=== PATIENT | male | born 1960 | race African-American/Black ===

== ENCOUNTER 2019-12-30 17:51 | Outpatient (CLI) | payer OTHER, SELFPAY ==
[2019-12-30 18:23] LABS: Alanine Aminotransferase 23 U/L (4-50); Albumin Level 4.3 g/dL (3.5-5.1); Alkaline Phosphatase 68 U/L (38-126); Anion Gap 8 mmol/L (8-16); Aspartate Amino Transferase 34 U/L (17-59); Bilirubin,Total 0.8 mg/dL (0.2-1.3); Blood Urea Nitrogen 19 mg/dL (9-20); Calcium 9.2 mg/dL (8.4-10.2); Carbon Dioxide 26 mmol/L (22-30); Chloride 107 mmol/L (98-107); Cholesterol 209 mg/dL (0-200); Estimated Glomerular Filt Rate > 60; Glucose 97 mg/dL (75-110); HDL Direct 28 mg/dL; Potassium 3.8 mmol/L (3.4-5.0); Sodium 141 mmol/L (137-145); Triglycerides 267 mg/dL (<150)
[2019-12-30 18:35] LABS: LDL Cholesterol Direct 125 mg/dL
[2019-12-30 18:53] LABS: Prostate Specific Antigen 0.5 ng/mL (< OR = 4.0)
== END 2019-12-30 17:52 | disposition home or self-care (01) ==
LOC: ANHLAB 17:54
PROVIDERS: PCP Internal Medicine; Visit Provider Internal Medicine
DX: E78.5 Hyperlipidemia, unspecified (principal); I10 Essential (primary) hypertension; Z79.899 Other long term (current) drug therapy; Z12.5 Encounter for screening for malignant neoplasm of prostate
CPT/HCPCS: 36415; 80053; 80061; 84153; G0103

== ENCOUNTER 2020-02-25 14:34 | Inpatient (IN) | payer OTHER, SELFPAY ==
[2020-02-25] VITALS (20 sets, daily range): BP systolic 84–162; BP diastolic 56–102; PULSE 86–141; RESP 19–30; TEMP 35.8–37.2; O2SAT 97–100; BMI 33.7
--- NOTE | ~2020-02-25 | CT_ITS ---
EXAMINATION: CT brain wo con DATE: 02/27/2020 09:50 INDICATION: Altered mental status TECHNIQUE: Computed tomography (CT) of the head was performed without intravenous contrast. Sagittal and coronal reconstructions were performed. The mA was adjusted according to patient size. Iterative reconstruction technique was employed. The dose-length product was 681.00 mGy-cm. COMPARISON: head CT dated 10/01/2004 FINDINGS: No acute intracranial hemorrhage, acute infarction or abnormal extra axial fluid collection. There is mild scattered white matter hypoattenuation consistent with chronic small vessel ischemic disease. V entricles are normal and symmetric. No mass/mass effect. Mild mucosal thickening scattered throughout the paranasal sinuses. The orbits and mastoid air cells are normal. Intracranial calcified cerebral atherosclerosis is noted. IMPRESSION: 1. Mild scattered white matter hypoattenuation consistent with chronic small vessel ischemic disease. No acute intracranial process. Reviewed, dictated and finalized at location A. GER VOICE IMPRESSION: 1. Mild scattered white matter hypoattenuation consistent with chronic small ve ssel ischemic disease. No acute intracranial process.
--- NOTE | ~2020-02-25 | XR_ITS ---
EXAMINATION: XR abdomen NG/feed tube insert DATE: 02/25/2020 15:00 INDICATION: Orogastric tube placement. TECHNIQUE: A supine view of the abdomen was obtained. COMPARISON: None. FINDINGS: There are no dilated loops of bowel. The nasogastric tube tip is in the stomach. IMPRESSION: 1. Nasogastric tube tip in the stomach. Reviewed, dictated and finalized at location B. E OPERATIONS
--- NOTE | ~2020-02-25 | XR_ITS ---
EXAMINATION: XR chest 1V portable DATE: 02/26/2020 10:44 INDICATION: Respiratory failure. TECHNIQUE: A single frontal view of the chest was obtained. COMPARISON: Chest single view 02/25/2020, chest 2 views 01/07/2018 FINDINGS: There are airspace opacities in the perihilar regions and peripheral left lower lung zone. No pleural effusion or pneumothorax. The heart size is normal. The endotracheal tube tip is 4.7 cm ab ove the emmanuelle. The nasogastric tube tip is in the stomach. IMPRESSION: 1. Worsened airspace opacities in the perihilar regions and peripheral left lower lung zone, consiste nt with pulmonary edema versus pneumonia. Reviewed, dictated and finalized at location B. INE RIVETER IMPRESSION: 1. Worsened airspace opacities in the perihilar regions and peripheral left low er lung zone, consistent with pulmonary edema versus pneumonia.
--- NOTE | ~2020-02-25 | XR_ITS ---
EXAMINATION: XR chest 1V portable DATE: 02/29/2020 05:55 INDICATION: Respiratory failure. TECHNIQUE: A single frontal view of the chest was obtained. COMPARISON: Chest single view 02/28/2020 FINDINGS: There are airspace opacities in left lower lung zone. No pleural effusion or pneumothorax. The heart size is normal. The endotracheal tube tip is 5.4 cm above the emmanuelle. The nasogastric tube tip is beyond the inferior margin of the radiograph, but at least to the stomach. IMPRESSION: 1. Airspace opacities in left lower lung zone with interval improvement, consistent with atelectasis versus pneumonia. Reviewed, dictated and finalized at location A. GING CUT OFF SAW OPERATOR IMPRESSION: 1. Airspace opacities in left lower lung zone with interval improvement, consis tent with atelectasis versus pneumonia.
--- NOTE | ~2020-02-25 | XR_ITS ---
EXAMINATION: XR chest 1V portable DATE: 02/28/2020 05:59 INDICATION: Respiratory failure TECHNIQUE: frontal view of the chest was obtained. COMPARISON: Chest radiograph dated 02/27/2020 FINDINGS: Endotracheal tube tip 4.8 cm above the emmanuelle. Nasogastric tube extends below the left hemidiaphragm with distal tip collimated off the study. Bilateral perihilar groundglass opacities which are unchanged conifer increased leftward rotation of the patient. Increasing opacities at the lateral left lung base. No pneumothorax or definitive pleura l effusion. The cardiomediastinal silhouette is normal. Coronary artery stenting. IMPRESSION: 1. Bilateral perihilar and increasing left basilar opacities which could represent pneumonia, pulmona ry edema, atelectasis or some combination thereof. Reviewed, dictated and finalized at location A. WAY WORKER IMPRESSION: 1. Bilateral perihilar and increasing left basilar opacities which could repres ent pneumonia, pulmonary edema, atelectasis or some combination thereof.
--- NOTE | ~2020-02-25 | XR_ITS ---
EXAMINATION: XR chest ET placement DATE: 02/25/2020 14:59 INDICATION: Intubation. TECHNIQUE: A single frontal view of the chest was obtained on 2 radiographs. COMPARISON: Chest 2 views 01/07/2018 FINDINGS: There are airspace opacities in left lower lobe. No pleural effusion or pneumothorax. The h eart size is normal. The endotracheal tube tip is 4.2 cm above the emmanuelle. The nasogastric tube tip i s in the stomach. IMPRESSION: 1. Left lower lobe airspace opacities, consistent with atelectasis versus pneumonia. Reviewed, dictated and finalized at location B. DENT CARE ASSISTANT IMPRESSION: 1. Left lower lobe airspace opacities, consistent with atelectasis versus pneum onia.
--- NOTE | ~2020-02-25 | XR_ITS ---
EXAMINATION: XR chest 1V portable DATE: 03/01/2020 05:45 INDICATION: Respiratory failure. TECHNIQUE: A single frontal view of the chest was obtained. COMPARISON: Chest single view 02/29/2020 FINDINGS: There are airspace opacities at left lung base. There are airspace opacities in the perihil ar regions bilaterally. No pleural effusion or pneumothorax. The heart size is normal. The endotrache al tube is 4.2 cm above the emmanuelle. The nasogastric tube tip is in the stomach. A right upper extremi ty peripherally inserted central venous catheter (PICC) is seen with tip at the superior cavoatrial j unction. IMPRESSION: 1. Worsened airspace opacities in the perihilar regions and left lower lung zone, consistent with ate lectasis versus pneumonia. Reviewed, dictated and finalized at location A. FRAMER IMPRESSION: 1. Worsened airspace opacities in the perihilar regions and left lower lung zon e, consistent with atelectasis versus pneumonia.
--- NOTE | ~2020-02-25 | XR_ITS ---
EXAMINATION: XR chest 1V portable DATE: 02/27/2020 06:11 INDICATION: Respiratory failure TECHNIQUE: frontal view of the chest was obtained. COMPARISON: Chest radiograph dated 02/26/20 FINDINGS: Endotracheal tube tip 4.0 cm above the emmanuelle. Nasogastric tube extends below the left hemidiaphragm with distal tip collimated off the study. Bilateral perihilar predominant airspace opacities with some increase in the left lower lung zone. Un changed mild discoid atelectasis at the lateral left lung base. No pleural effusion or pneumothorax. The cardiomediastinal silhouette is within normal limits for AP technique. IMPRESSION: 1. Bilateral perihilar predominant opacities with worsening the left lower lung zone consistent with pulmonary edema and/or pneumonia. Reviewed, dictated and finalized at location A. ERCIAL FISHING VESSEL OPERATOR
--- NOTE | ~2020-02-25 | XR_ITS ---
EXAMINATION: XR chest 1V portable INDICATION: Endotracheal tube assessment TECHNIQUE: Portable AP chest at 1743 hours COMPARISON: 1456 hours FINDINGS: The endotracheal tube ends approximately 2.6 cm above the emmanuelle. The nasogastric tube is i n the stomach. The lung volumes are low. The heart size is normal for technique. Retrocardiac airspac e opacities are unchanged.. There is no pleural effusion or pneumothorax. IMPRESSION: 1. Endotracheal tube approximately 2.6 cm above the emmanuelle. 2. Stable retrocardiac airspace opacity, consistent with atelectasis versus pneumonia. Reviewed, dictated and finalized at location A. MENT LETTERER IMPRESSION: 1. Endotracheal tube approximately 2.6 cm above the emmanuelle. 2. Stable retrocardiac airspace opacity, consistent with atelectasis versus pne umonia.
--- NOTE | ~2020-02-25 | XR_ITS ---
EXAMINATION: XR abdomen obstructive series DATE: 03/01/2020 10:45 INDICATION: Vomiting TECHNIQUE: Frontal supine and upright views of the abdomen were obtained. COMPARISON: 02/25/2020 FINDINGS: Nasogastric tube tip in proximal side port in the body of the stomach. Moderate amount of gas scatter ed throughout the colon. No dilated loops of gas-filled bowel to suggest obstruction.Airspace opaciti es in the left lower lung zone which could represent atelectasis and/or pneumonia. Heart size is norm al. IMPRESSION: 1. Nasogastric tube in stomach. 2. No free intraperitoneal gas or dilated gas-filled loops of bowel to suggest obstruction. 3. Opacities in the left lower lung zone which could represent atelectasis and/or pneumonia. Reviewed, dictated and finalized at location B. OOD LAYUP LINE CORE FEEDER IMPRESSION: 1. Nasogastric tube in stomach. 2. No free intraperitoneal gas or dilated gas-filled loops of bowel to suggest obstruction. 3. Opacities in the left lower lung zone which could represent atelectasis and/ or pneumonia.
--- NOTE | 2020-02-25 14:33 | PC.NURSE ---
Addendum entered by Fara Kim RN 02/25/20 15:44: 1500-324 asa crushed and given via nasogastric tube. ng and george placed in ed at approx 1450 Addendum entered by Fara Kim RN 02/25/20 15:37: 1436-no versed given due to possible reaction to versed given en route by ems. tongue swelling noted on arrival to ed Original Note: 1433-arrived via ems for vfib cariac arrest at home. pt was shocked x 2 in field with rhythm of sinus tach after 2nd shock. pt arrived being bagged via 7 ett (25 cm at teeth, tongue swollen). 1436-versed 2 mg iv push as pt is bucking the tube/restless. amiodarone bolus 150 mg iv push marissa guallpa 1440-propofol 20 mg iv push marissa guallpa 1442-amiodarone drip started at 33.3 ml/hr marissa guallpa 1446-propofol drip via pump 20 mcg/kg vorgerman guallpa [id number] units iv bolus vorgerman guallpa 1503-transported to wharf labourer with cath collection team lead, ed rn and resp therapy. bagged via ett by resp therapy. belongings of underwear, shorts and upper dentures sent with pt
--- NOTE | 2020-02-25 14:51 | PC.NURSE ---
Addendum entered by Fara Kim RN 02/25/20 15:43: afib with rvr, acute mi per tele and 12 lead ekg Original Note: sinus tach with st elevation per tele
--- NOTE | 2020-02-25 14:51 | ED.GENADULT ---
HPI - General Adult General Chief complaint: Cardiac Arrest/CPR Stated complaint: CARDIAC ARREST Time Seen by Provider: 02/25/20 14:47 Source: family and EMS Mode of arrival: EMS Limitations: clinical condition History of Present Illness HPI narrative: 59 years old -Mauritanian male brought to the emergency room by ambulance, intubated, status post cardiac arrest. According to patient's who is telling me that patient had chest pain at 2:00 in the morning and did ask him to take Tums, no improvement, when she came back at home this morning advised him to go to the emergency room he declined. Later the try to get some sleep because she was working last night and the patient was laying down next to her, the heard that the patient was a choking, eyes rolled backward, started CPR, called Jose E Alexander on arrival, received 2 shocks, followed by PEA then sinus tachycardia. Patient was intubated in the field, EKG on arrival showed significant ST elevation in the anterolateral leads. STEMI was called Related Data Home Medications Medication Instructions Recorded Confirmed azathioprine 50 mg tablet 50 mg PO DAILY 01/29/19 12/29/19 fluticasone propionate 50 2 spray NASAL DAILY 01/29/19 12/29/19 mcg/actuation nasal spray,suspension Allergies Allergy/AdvReac Type Severity Reaction Status Date / Time No Known Allergies Allergy Verified 12/29/19 07:13 Review of Systems Review of Systems: ROS unobtainable: Yes unobtainable due to endotracheal tube and unobtainable due to medical condition PMFSH Past Medical History Medical History (Updated 02/25/20 @ 15:12 by Nikita Cruz MD) Autoimmune hepatitis Essential (primary) hypertension Hyperlipidemia Family History Family History Sibling Family history of lupus erythematosus Patient's sister is in good health Patient's brother is in good health Father Family history of malignant neoplasm Patient's father is Mother Family history of malignant neoplasm Patient's mother is Social History Social History Smoking status: Current every day smoker Exam Narrative: Exam Narrative: General appearance: Well-developed, well-nourished, intubated, unresponsive to painful stimulation Skin: Normal color Head: Normocephalic, nontraumatic Eyes: Clear conjunctiva Chest and respiratory: Airway patent, no respiratory distress, no accessory muscle use Heart: Regular rate/rhythm Abdomen: Soft, nontender, no organomegaly, quiet bowel sounds Vascular: Normal peripheral pulses, normal capillary refill. Course Course Emergency Course: Stable Consultations Consultation #1: Dr. Alvares Date: 02/25/20 Time: 15:05 Vital Signs Vital signs: Vital Signs Pulse Rate 121 H 02/25/20 14:33 Respiratory Rate 28 H 02/25/20 14:33 Blood Pressure 120/102 H 02/25/20 14:33 Pulse Rate 130 H 02/25/20 14:52 Respiratory Rate 19 02/25/20 14:52 Blood Pressure 162/99 H 02/25/20 14:52 Pulse Oximetry 99 02/25/20 14:52 Medical Decision Making MDM Narrative Medical decision making narrative: STEMI, status post cardiac arrest,v fib Patient arrived to the ED intubated, Amiodarone bolus and drip, heparin bolus, NG tube, aspirin, ordered. Patient going to cardiac cath. I saw the EKG brought to the ED by ambulance at 2:40 PM Vital Signs Vital Signs: Vital Signs Pulse Rate 121 H 02/25/20 14:33 Respiratory Rate 28 H 02/25/20 14:33 Blood Pressure 120/102 H 02/25/20 14:33 Pulse Rate 130 H 02/25/20 14:52 Respiratory Rate 19 02/25/20 14:52 Blood Pressure 162/99 H 02/25/20 14:52 Pulse Oximetry 99 02/25/20 14:52 Lab Data Result
[2020-02-25 14:56] LABS: Basophils Percent Auto 0.3 % (0.2-1.2); Eosinophils Percent Auto 0.3 % (0-4.4); Immature Granulocyte Absolute 0.08 K/mm3 (0.00-0.031); Lymphocytes Absolute Auto 3.24 K/mm3 (0.9-3.2); Lymphocytes Percent Auto 41.5 % (18.3-44.2); Mean Corpuscular HGB Conc 34.9 g/dl (32-36); Mean Corpuscular Hemoglobin 33.2 pg (26-34); Mean Corpuscular Volume 95.1 fl (80-100); Mean Platelet Volume 11.8 fl (7.4-10.4); Monocytes Absolute Auto 0.8 K/mm3 (0.1-0.6); Monocytes Percent Auto 10.5 % (2.6-8.5); Neutrophils Absolute Auto 3.6 K/mm3 (1.3-6.7); Neutrophils Percent Auto 46.4 % (45.5-73.1); Platelet Count Result 159 k/mm3 (150-375); Red Blood Count 4.52 M/mm3 (4.6-6.20); Red Cell Distribution Width 12.9 % (11.5-14.5); White Blood Count 7.8 K/mm3 (4.5-10.0)
--- NOTE | 2020-02-25 15:10 | PM.IMHP ---
H&P: HPI History of Present Illness Date/Time: 02/25/20 15:10 Chief complaint: CARDIAC ARREST Narrative: Cristofer Mckeon is a 59 year old male Who was admitted for a VFib arrest and acute anterior PR. The patient has a history of hypertension and hyperlipidemia but no prior history of heart disease. History was obtained from the , EMS personnel and Dr. Cruz, the ER physician, as the patient is unconscious. Mr. Mckeon had some chest discomfort around 2:00 a.m. this afternoon he he had his for lying down together and she noticed he was gurgling and unresponsive. She started CPR and called the ambulance. They arrived within 3-5 minutes. He was in VFib and they started CPR and he had 2 shocks. Sinus rhythm was restored. He is intubated in the field and brought to the ER. He has been given some amiodarone IV, and propofol. He was getting aspirin through his NG tube. He has had no further arrhythmias as blood pressures in the 160s, tachycardic with heart rate in the 120s when I saw the patient in the emergency room. His EKG showed extensive ST elevation in V1 through V3 consistent with an extensive anterior myocardial infarction. Review of Systems Review of Systems: Narrative: please see H&P for ROS ROS unobtainable: Yes unobtainable due to endotracheal tube, unobtainable due to medical condition and unobtainable due to mental status PMFSH Past Medical History Medical History (Updated 02/26/20 @ 00:23 by Josette Olea PA-C) Autoimmune hepatitis Dyslipidemia Essential hypertension Gastroesophageal reflux disease Osteoarthritis Surgical History Surgical History (Updated 02/25/20 @ 15:14 by Patricia Birmingham MD) Status post bilateral knee replacements Family History Family History Sibling Family history of lupus erythematosus Patient's sister is in good health Patient's brother is in good health Father Family history of malignant neoplasm Patient's father is Mother Family history of malignant neoplasm Patient's mother is Social History Social History (Updated 02/26/20 @ 00:19 by Josette Olea PA-C) Social History: The patient is and lives with his in [place]. He has 4 children and 4 grandchildren. He works in construction. He is a former smoker and quit in 1998. No alcohol or illicit substance use. His Adrienne, a nurse, is his healthcare power of insurance attorney and she wishes him to be a full code. Smoking packs per day: 0.25 Smoking cigarettes per day: 5.0 Years smoked: 17 Smoking pack-years: 4.25 Smoking status: Former smoker Smoking end date: 03/18/98 Alcohol intake: former Substance use: never Gender identity (if verbalized by the patient): Male Spiritual care concerns: No Meds Home Medications and Allergies Home Medications Medication Instructions Recorded Confirmed Type azathioprine 50 mg tablet 50 mg PO DAILY 01/29/19 12/29/19 History fluticasone propionate 50 2 spray NASAL DAILY 01/29/19 12/29/19 History mcg/actuation nasal spray,suspension triamcinolone acetonide 0.1 % 1 applic TOPICAL BID #80 gm 04/08/19 12/29/19 Rx topical cream pantoprazole 40 mg tablet,delayed 40 mg PO QAM #30 tablet 11/24/19 12/29/19 Rx release hydrocodone 10 mg-acetaminophen 1 tablet PO Q8H PRN #60 tablet 12/29/19 12/29/19 Rx 325 mg tablet sildenafil 100 mg tablet See Rx Instructions PO DAILY PRN 12/29/19 12/29/19 Rx #15 tablet amlodipine 10 mg tablet 10 mg PO DAILY #90 tablet 01/04/20 02/26/20 Rx omega-3 fatty acids 1,000 mg 1,000 mg PO DAILY #90 cap 01/04/20 Rx capsule pravastatin 40 mg tablet 20 mg PO DAILY #90 tablet 01/04/20 Rx Allergies Allergy/AdvReac Type Severity Reaction Status Date / Time No Known Allergies Allergy Verified 02/26/20 08:02 Vital Signs Vital Signs - 24 hr 02/25/20 14:33 02/25/20 14:51 02/15
[2020-02-25 15:17] LABS: INR 1.1; Prothrombin Time 14.4 Seconds (11.1-14.7)
[2020-02-25 15:18] LABS: Partial Thromboplastin Time 26.3 SECONDS (22.3-36.8)
--- NOTE | 2020-02-25 16:30 | ECG_ITS ---
Measurements Intervals [place] Rate: 140 P: DE: 0 QRS: -12 QRSD: 94 T: 38 QT: 276 QTc: 422 Interpretive Statements ATRIAL FIBRILLATION WITH RAPID VENTRICULAR RESPONSE ANTEROLATERAL ST ELEVATION MYOCARDIAL INJURY- ACUTE SUBTLE INFERIOR ST ELEVATION- CONSIDER ACUTE INJURY ABNORMAL ECG Electronically Signed On 02-25-2020 19:55:57 RAMPMAN by James Holt D.O.
[2020-02-25] MEDS: AMIODARONE 360 MG/D5W 200 ML 360 MG/200 ML BAG 33.33 MG IV CONT (16:50)
--- NOTE | 2020-02-25 16:52 | WPDCARDPROC ---
Cardiac Cath Procedure Note Date of procedure:: 02/25/20 Performing physician:: Chris Alvares MD Indication:: acute anterior wall myocardial infarction [id number] VFib Brief clinical history:: this is a 59-year-old patient without any prior known history of coronary disease. He started chest pain at home about 12 hours prior to presentation. He had E 911 called to his home when he collapsed and was found in ventricular fibrillation. Following resuscitation his electrocardiogram shows atrial fibrillation as well as acute anterior wall injury. Procedure Procedure performed:: Emergency coronary angiography left ventriculography attempted PCI of LAD Sedation/Medication given:: patient is on a propofol infusion from the emergency room which was continue following intubation Access site:: right femoral artery Estimated blood loss:: 50 cc Procedure note:: patient was brought to the cardiac catheterization lab in the emergency setting described above. He is intubated and sedated with propofol. He was placed on the table where the femoral triangles were prepared and draped in the usual fashion. Anesthesia was given with 10 cc lidocaine infiltrated locally. Following this the modified Seldinger technique was used to puncture the right femoral artery and a 6 Slovenian vascular sheath was placed. After this I used a 6 Slovenian JR4 catheter to engage inject the right coronary artery. Then a 6 [place]ian FL4 catheter to engage inject the left coronary artery. Following this plans were made to perform PCI on the occluded LAD. The patient received intravenous Angiomax for interventional [place] anticoagulation. He also received 180 mg Brilinta down his NG tube. He had already received aspirin in the emergency department. Patient also received intracoronary and intravenous Integrilin during the intervention. Following intervention which was unsuccessful as detailed below the sheath was sutured into position and the patient was taken to the ICU in critical condition. Findings:: Hemodynamics: Central aortic pressure is 1 0 4 over over 2 end-diastolic pressure 16. There is no significant transvalvular gradient across the aortic valve. Left ventricle: The LV is moderately enlarged the anterolateral wall is akinetic the global ejection fraction is visually estimated to be 25%. Left main coronary artery is nicely patent left anterior descending is a large vessel extending down to the midportion of the anterior wall at which point it is 100% occluded. Proximal to the 100% occlusion there was an 80% complex stenosis in the proximal LAD. There is no antegrade filling into the LAD. The left circumflex artery is large in caliber giving rise to the marginal branches the circumflex has minimal luminal irregularities but no flow-limiting disease is identified. The right coronary artery is large in caliber and dominant to the posterior circulation the right coronary artery also has minimal luminal irregularities but no angiographically significant disease. intervention: The LAD was wired using a 0.014 airplane pilot chief 150 wire. The wire angiographically could be seen in the true lumen of the LAD and the distal apical portion of the vessel. The lesion site of total occlusion was pre-dilated using a 3.0 x 15 mm emerge PTCA balloon. After this inflation was conducted the LAD was 100% occluded at the more proximal 80% stenosis described above. A series of long overlapping inflations were then made using 3 point 5 mm x 30 mm emerge PTCA balloon from the distal portion of the LAD back to the site of the proximal occlusion. This resulted in no angiographic improvement. I then made 2 passes in the LAD with the export thrombectomy catheter removed a good deal of thrombus from the artery but still had no angiographic christian of flow. I then made a pass in the LAD using the Angiojet rheolytic thrombectomy device again resulting in very minimal dean
--- NOTE | 2020-02-25 17:45 | WPDCN ---
Assessment and Plan Assessment and plan (1) ST elevation myocardial infarction (STEMI) of anterior wall: Code(s): I21.09 - ST elevation (STEMI) myocardial infarction involving other coronary artery of anterior wall Status: Acute (2) Cardiac arrest with ventricular fibrillation: Code(s): I46.9 - Cardiac arrest, cause unspecified; I49.01 - Ventricular fibrillation Status: Acute (3) Hypokalemia: Code(s): E87.6 - Hypokalemia Status: Acute (4) Autoimmune hepatitis: Code(s): K75.4 - Autoimmune hepatitis Status: Acute (5) Essential hypertension: Code(s): I10 - Essential (primary) hypertension Status: Inactive (6) Dyslipidemia: Code(s): E78.5 - Hyperlipidemia, unspecified Status: Inactive (7) Gastroesophageal reflux disease: Code(s): K21.9 - Gastro-esophageal reflux disease without esophagitis Status: Inactive (8) Atrial fibrillation, new onset: Code(s): I48.91 - Unspecified atrial fibrillation Status: Acute Additional Plan Unfortunately the patient presented late and flow was unable to be restored in a 100% occluded LAD despite attempted complex PCI. He is currently on an amiodarone drip due to cardiac dysrhythmias including atrial fibrillation and ventricular fibrillation. Hypothermia protocol has been initiated per the senior formulation scientist. His potassium will be replaced and monitored. LFTs are elevated, possibly related to autoimmune hepatitis or shock liver. We will continue to monitor these closely. wishes for him to remain a full code at this time. Thank you for allowing us to participate in this patient's care. Please do not hesitate to contact us with any questions. We will follow with you. Supervising physician for this medical consultation is Dr. Brian Dai. HPI Data of Consult Date/Time: 02/25/20 17:45 Requesting Physician: Chris Alvares MD Primary Care Provider: Dudley Kapoor DO Consult Narrative Narrative: Cristofer Mckeon is a 59-year-old male with autoimmune hepatitis, hypertension, and hyperlipidemia who presented to the emergency department earlier today via EMS from home after he was found unresponsive by his . He apparently had been complaining of chest discomfort at around 02:00 for which he took Tums without much benefit. Not long prior to arrival the patient's heard him making strange noises and he was found to be unresponsive. He was apparently in ventricular fibrillation on EMS arrival with an EKG showing ST elevation in the anterior leads. ROSC was achieved and he was taken to the cardiac catheterization lab where he was found to have 100% occlusion of the LAD with no orthodoxy of flow despite attempted complex PCI. The LV was moderately enlarged with an akinetic anterolateral wall and a global ejection fraction visually estimated at 25%. He was then taken to the intensive care unit in critical condition. Not long after arrival to the ICU he once again went into ventricular fibrillation status post defibrillation, now on amiodarone drip. Hypothermia protocol is being initiated. I have been asked to see the patient in consultation for management of his medical conditions. Aside from autoimmune hepatitis, he is relatively healthy and believes that his hypertension and hyperlipidemia are well controlled on medication. For the last week or so he apparently has been complaining of some chest discomfort, which he attributed to muscle strain as he was doing more heavy lifting at work than usual. He has no known history of coronary artery disease prior to today. Review of Systems Review of Systems: Narrative: Unable to be obtained given his current clinical condition. [facility] Past Medical History Medical History (Updated 02/26/20 @ 00:23 by Josette Olea PA-C) Autoimmune hepatitis Dyslipidemia Essential hypertension Gastroesophageal reflux disease Osteoarthritis Surgical Histo
[2020-02-25 17:54] LABS: Alveolar/Arterial O2 Gradient 167.5 mmHg; Base Excess ABG -3.9 mEq/l (+/-2.0); Carboxyhemoglobin 0.3 % THb (0-2.0); Device AMBU BAG; Fractional Inspired Oxygen 100 %; HCO3 ABG 20.4 mEq/l (22.0-26.0); Methemoglobin ABG 0.3 %THb (0-1.5); Modified Allen's Test Pass; Oxygen Content ABG 22.7 %vol (16.0-22.0); Oxygen Saturation ABG 99.9 % (95.0-100.0); Oxyhemoglobin 98.6 % THb (90.0-100.0); PO2 ABG 510.5 mmHg (80.0-100.0); PO2 FiO2 Ratio Arterial Blood 5.11 %; Reduced Hemoglobin 0.8 %THb (0-5.0); Site Drawn RIGHT RADIAL; Total Hemoglobin 15.4 g/dL (12.0-18.0); pH ABG 7.383 (7.350-7.450)
[2020-02-25] MEDS: PROPOFOL IV EMULSION 100 ML 30.96 MG IV CONT (18:00)
[2020-02-25 18:10] LABS: Basophils Percent Auto 0.2 % (0.2-1.2); Eosinophils Percent Auto 0.1 % (0-4.4); Hematocrit 41.3 % (42.0-52.0); Hemoglobin 14.7 g/dL (14.0-18.0); Immature Granulocyte Absolute 0.08 K/mm3 (0.00-0.031); Immature Granulocyte Percent A 0.6 % (0-0.5); Lymphocytes Absolute Auto 1.53 K/mm3 (0.9-3.2); Lymphocytes Percent Auto 11.7 % (18.3-44.2); Mean Corpuscular HGB Conc 35.6 g/dl (32-36); Mean Corpuscular Hemoglobin 33.6 pg (26-34); Mean Corpuscular Volume 94.3 fl (80-100); Mean Platelet Volume 11.2 fl (7.4-10.4); Monocytes Absolute Auto 1.3 K/mm3 (0.1-0.6); Monocytes Percent Auto 9.7 % (2.6-8.5); Neutrophils Absolute Auto 10.2 K/mm3 (1.3-6.7); Neutrophils Percent Auto 77.7 % (45.5-73.1); Platelet Count Result 152 k/mm3 (150-375); Red Blood Count 4.38 M/mm3 (4.6-6.20); White Blood Count 13.1 K/mm3 (4.5-10.0)
[2020-02-25 18:20] LABS: INR 1.7
[2020-02-25 18:23] LABS: Lactic Acid Reflex 3.3 mmol/L (0.7-2.1)
[2020-02-25 18:23] LABS: Alanine Aminotransferase 55 U/L (4-50); Albumin Level 3.8 g/dL (3.5-5.1); Alkaline Phosphatase 69 U/L (38-126); Anion Gap 11 mmol/L (8-16); Aspartate Amino Transferase 225 U/L (17-59); Bilirubin,Total 0.8 mg/dL (0.2-1.3); Blood Urea Nitrogen 13 mg/dL (9-20); Calcium 8.6 mg/dL (8.4-10.2); Carbon Dioxide 20 mmol/L (22-30); Chloride 104 mmol/L (98-107); Estimated Glomerular Filt Rate > 60; Glucose 217 mg/dL (75-110); Phosphorus 3.2 mg/dL (2.5-4.5); Sodium 135 mmol/L (137-145)
--- NOTE | 2020-02-25 19:05 | ADMGEN ---
This patient, Cristofer Mckeon, was admitted to Intensive Care Unit-2. Patient/family oriented to hospital policies and general routines including ID bracelet, bed and alarms, visiting hours, pain management, procedures, bathroom and other care routines, personal items, smoking policy, room service/diet, and visiting hours. Information on how to activate the Rapid Response Team has been discussed. Patient/Family are encouraged to report perceived risks to care and to ask questions if they do not understand what they are told or what they should do.
--- NOTE | 2020-02-25 19:45 | P.PCNBED_ITS ---
Procedures Central Line Placement Left Femoral: Central Line Date: 02/25/20 Central Line Time: 19:45 Discussed w/ the patient/family/POA,the placement of a central venous catheter, including its clinical necessity/indication & associated potential risks, benifits and alternatives.: Yes The patient/family/POA understand(s) and acknowledge(s) the need to proceed with central venous catheter insertion as an important element of the patient's clinical management.: Yes Consent: Obtained consent per , Adrienne Mckeon. Time Out Performed: Yes Patient Position: supine Patient placed on monitor/pulse ox: Yes Provider Prep: mask, sterile gown, sterile gloves, Max. sterile barrier precautions, cap and hand hygiene with conventional soap/water or alcohol based hand rub Central line prep: 2% Chlorhexidine scrub Local anesthesia used: lidocaine 1% Amount of anesthesia used (ml): 5 Sterile US Technique with sterile gel/sterile probe covers: Yes Central line lumen inserted: triple [place]: 7 Length (cm): 20 Post Procedure: sutured in place, good blood return, all ports aspirated, flushed, capped, transparent dressing, securement product and aseptic technique maintained throughout procedure Post procedure x-ray: other (n/a with femoral placement.) Patient tolerated procedure: well Complications: none
[2020-02-25 20:02] LABS: Alveolar/Arterial O2 Gradient 552.9 mmHg; Base Excess ABG -2.5 mEq/l (+/-2.0); Carboxyhemoglobin 0.3 % THb (0-2.0); Fractional Inspired Oxygen 100 %; HCO3 ABG 21.8 mEq/l (22.0-26.0); Methemoglobin ABG 0.3 %THb (0-1.5); Oxygen Content ABG 21.4 %vol (16.0-22.0); Oxygen Saturation ABG 98.5 % (95.0-100.0); Oxyhemoglobin 97.3 % THb (90.0-100.0); PCO2 ABG 36.3 mmHg (35.0-45.0); PO2 ABG 123.8 mmHg (80.0-100.0); PO2 FiO2 Ratio Arterial Blood 1.24 %; Reduced Hemoglobin 2.1 %THb (0-5.0); Total Hemoglobin 15.5 g/dL (12.0-18.0); pH ABG 7.396 (7.350-7.450)
[2020-02-25 20:04] LABS: Device VENTILATOR; Site Drawn RIGHT RADIAL
[2020-02-25 20:05] LABS: Arterial Blood Gas PEEP 5 cmH2O; Arterial Blood Gas Tidal Volume 450 ml; Arterial Blood Gas Vent Mode CMV; Arterial Blood Gas Ventilator rate 24 /MIN
[2020-02-25 21:07] LABS: Reflex Lactic Acid Yes or No Add Lactic
[2020-02-25] MEDS: PROPOFOL IV EMULSION 100 ML 38.7 MG IV CONT (21:40)
[2020-02-25] MEDS: LORazepam INJ (*CRX) 2 MG/ML VIAL (21:56)
[2020-02-25] MEDS: FENTANYL 2,500MCG/NS250ML(*CRX 2,500 MCG/250 ML BAG IV CONT (22:00)
[2020-02-25] MEDS: ROCURONIUM BROMIDE 50 MG/5 ML VIAL IV PUSH (22:49)
[2020-02-25] MEDS: AMIODARONE 360 MG/D5W 200 ML 360 MG/200 ML BAG 16.67 MG IV CONT (22:50)
[2020-02-25 23:54] LABS: Lactic Acid 1.3 mmol/L (0.7-2.1)
[2020-02-26] VITALS (49 sets, daily range): BP systolic 70–268; BP diastolic 56–255; PULSE 57–98; RESP 17–28; TEMP 32.6–36.4; O2SAT 91–100; BMI 33.7
[2020-02-26 00:01] LABS: Amphetamine Screen Urine Negative (Negative); Barbiturate Screen Urine Negative (Negative); Benzodiazepines Screen Urine Positive (Negative); Cannabinoid Screen Urine Negative (Negative); Cocaine Screen Urine Negative (Negative); Methadone Screen Urine Negative (Negative); Opiate Screen Urine Negative (Negative); Phencyclidine Screen Urine Negative (Negative)
[2020-02-26 00:04] LABS: Glucose Point of Care 175 (65-105)
[2020-02-26 00:17] LABS: Base Excess ABG -5.8 mEq/l (+/-2.0); Carboxyhemoglobin 0.2 % THb (0-2.0); Fractional Inspired Oxygen 80 %; HCO3 ABG 19.3 mEq/l (22.0-26.0); Methemoglobin ABG 0.3 %THb (0-1.5); Oxygen Content ABG 22.2 %vol (16.0-22.0); Oxygen Saturation ABG 96.1 % (95.0-100.0); Oxyhemoglobin 95.2 % THb (90.0-100.0); PCO2 ABG 37.1 mmHg (35.0-45.0); PO2 ABG 86.5 mmHg (80.0-100.0); PO2 FiO2 Ratio Arterial Blood 1.08 %; Reduced Hemoglobin 4.3 %THb (0-5.0); Total Hemoglobin 16.6 g/dL (12.0-18.0); pH ABG 7.335 (7.350-7.450)
[2020-02-26 00:19] LABS: Arterial Blood Gas Ventilator rate 20 /MIN; Device VENTILATOR; Modified Allen's Test Pass; Site Drawn LEFT RADIAL
[2020-02-26 00:20] LABS: Arterial Blood Gas PEEP 5 cmH2O; Arterial Blood Gas Tidal Volume 450 ml; Arterial Blood Gas Vent Mode CMV
[2020-02-26 00:29] LABS: Hematocrit 44.2 % (42.0-52.0); Hemoglobin 15.7 g/dL (14.0-18.0); Mean Corpuscular HGB Conc 35.5 g/dl (32-36); Mean Corpuscular Hemoglobin 33.4 pg (26-34); Mean Platelet Volume 11.3 fl (7.4-10.4); Platelet Count Result 143 k/mm3 (150-375); Red Cell Distribution Width 13.1 % (11.5-14.5); White Blood Count 9.4 K/mm3 (4.5-10.0)
[2020-02-26 00:46] LABS: INR 1.1; Lactic Acid Reflex 1.3 mmol/L (0.7-2.1); Prothrombin Time 14.4 Seconds (11.1-14.7)
[2020-02-26 00:47] LABS: Partial Thromboplastin Time 30.7 SECONDS (22.3-36.8)
[2020-02-26] MEDS: METOPROLOL TARTRATE 25 MG TABLET FEED TUBE ×4 (00:48→18:22)
[2020-02-26] MEDS: PROPOFOL IV EMULSION 100 ML 38.7 MG IV CONT ×2 (00:51→03:30)
[2020-02-26 01:36] LABS: Creatine Kinase 5901 U/L (55-170)
[2020-02-26 02:04] LABS: Hemoglobin A1C 4.5 % (<5.7)
[2020-02-26 04:25] LABS: Alveolar/Arterial O2 Gradient 432.7 mmHg; Base Excess ABG -5.1 mEq/l (+/-2.0); Carboxyhemoglobin 0.3 % THb (0-2.0); Fractional Inspired Oxygen 80 %; Methemoglobin ABG 0.3 %THb (0-1.5); Oxygen Content ABG 22.7 %vol (16.0-22.0); Oxygen Saturation ABG 97.1 % (95.0-100.0); Oxyhemoglobin 96.5 % THb (90.0-100.0); PCO2 ABG 38.1 mmHg (35.0-45.0); PO2 ABG 97.7 mmHg (80.0-100.0); PO2 FiO2 Ratio Arterial Blood 1.22 %; Reduced Hemoglobin 2.9 %THb (0-5.0); Total Hemoglobin 16.7 g/dL (12.0-18.0); pH ABG 7.339 (7.350-7.450)
[2020-02-26 04:26] LABS: Arterial Blood Gas Ventilator rate 20 /MIN; Device VENTILATOR; Modified Allen's Test Pass; Site Drawn RIGHT RADIAL
[2020-02-26 04:27] LABS: Arterial Blood Gas PEEP 5 cmH2O; Arterial Blood Gas Tidal Volume 450 ml; Arterial Blood Gas Vent Mode CMV
[2020-02-26] MEDS: LORazepam INJ (*CRX) 2 MG/ML VIAL IV PUSH (04:52)
[2020-02-26 05:34] LABS: Basophils Percent Auto 0.1 % (0.2-1.2); Eosinophils Percent Auto 0.1 % (0-4.4); Hematocrit 44.2 % (42.0-52.0); Hemoglobin 15.4 g/dL (14.0-18.0); Immature Granulocyte Absolute 0.03 K/mm3 (0.00-0.031); Immature Granulocyte Percent A 0.3 % (0-0.5); Immature Platelet Fraction Pct 7.2 % (0.9-11.2); Lymphocytes Absolute Auto 0.83 K/mm3 (0.9-3.2); Lymphocytes Percent Auto 9.7 % (18.3-44.2); Mean Corpuscular HGB Conc 34.8 g/dl (32-36); Mean Corpuscular Hemoglobin 32.9 pg (26-34); Mean Corpuscular Volume 94.4 fl (80-100); Mean Platelet Volume 11.7 fl (7.4-10.4); Monocytes Absolute Auto 0.9 K/mm3 (0.1-0.6); Monocytes Percent Auto 10.6 % (2.6-8.5); Neutrophils Absolute Auto 6.8 K/mm3 (1.3-6.7); Neutrophils Percent Auto 79.2 % (45.5-73.1); Platelet Count Result 134 k/mm3 (150-375); Red Blood Count 4.68 M/mm3 (4.6-6.20); White Blood Count 8.6 K/mm3 (4.5-10.0)
[2020-02-26 05:52] LABS: Alanine Aminotransferase 102 U/L (4-50); Albumin Level 4.1 g/dL (3.5-5.1); Alkaline Phosphatase 67 U/L (38-126); Anion Gap 8 mmol/L (8-16); Aspartate Amino Transferase 692 U/L (17-59); Bilirubin,Total 0.8 mg/dL (0.2-1.3); Blood Urea Nitrogen 14 mg/dL (9-20); Calcium 8.9 mg/dL (8.4-10.2); Carbon Dioxide 27 mmol/L (22-30); Chloride 104 mmol/L (98-107); Estimated CRCL calculation 98 ml/min; Estimated Glomerular Filt Rate > 60; Glucose 134 mg/dL (75-110); Magnesium 2.1 mg/dL (1.6-2.3); Potassium 3.9 mmol/L (3.4-5.0); Sodium 139 mmol/L (137-145)
[2020-02-26] MEDS: MIDAZOLAM HCL (*CRX) 2 MG/2 ML VIAL 4 MG (07:21)
[2020-02-26] MEDS: METOPROLOL TARTRATE INJ 5 MG/5 ML VIAL (07:21)
[2020-02-26] MEDS: SODIUM CHLORIDE 0.9% IV 1,000 ML 100 ML IV CONT (08:25)
[2020-02-26] MEDS: AMIODARONE 360 MG/D5W 200 ML 360 MG/200 ML BAG 16.67 MG IV CONT ×2 (08:44→21:00)
[2020-02-26] MEDS: ENOXAPARIN 40 MG/0.4 ML SYRINGE SUB-Q (08:46)
[2020-02-26] MEDS: ASPIRIN 81 MG CHEWABLE TABLET PO (08:46)
[2020-02-26] MEDS: levETIRAcetam ORAL SOL 500 MG/5 ML UDC FEED TUBE ×2 (08:46→20:58)
[2020-02-26] MEDS: PANTOPRAZOLE SODIUM IV 40 MG VIAL IV PUSH (08:47)
[2020-02-26] MEDS: ROSUVASTATIN 10 MG TABLET 20 MG FEED TUBE (08:47)
[2020-02-26] MEDS: PERFLUTREN LIPID MICROSPHERES 1.5 ML VIAL DILUTED TO 10 ML TOTAL VOLUME (10:30)
--- NOTE | 2020-02-26 10:59 | PM.PNCARD ---
Progress Note: A&P Additional Plan 59-year-old man with: Late presentation anterior wall OK presenting following [id number] VF arrest at home. Attempt at PCI of the occluded LAD was unsuccessful. This probably does not affect the course very much since the infarct was at least 12-13 hours in process at the time of presentation. For that reason emergency surgical revascularization would not have been of any benefit. The patient is now on hypothermic protocol in the ICU. Supportive care will be continued and we will determine mental status when he is off of hypothermia/sedation. Prognosis is obviously guarded. Chris Alvares MD [facility] Subjective Date/time seen: 02/26/20 10:59 Interval history: 59-year-old man with: Acute anterior wall myocardial infarction presenting very late in the course of the event and having sustained [id number] ventricular fibrillation. Attempted emergency PCI to the LAD was unsuccessful with the vessel remaining 100% occluded. There were no other significant coronary lesions. Emergency PCI was abandoned after no success with balloon dilatation, extraction thrombectomy, rheolytic extraction thrombectomy and stenting. Patient also presented in atrial fibrillation is this morning in sinus rhythm and does on IV amiodarone. Hemodynamics are stable oxygenation is good. Patient is sedated and hypothermic. Laboratory data consistent with shock liver. Exam Const: Other: Sedated unresponsive gentleman on the ventilator in state of hypothermia HENMT: Mouth: Yes moist mucous membranes Eyes: Sclera: sclerae normal Neck: Neck: supple Thyroid: thyroid normal Other: No bruit over the carotids Resp: Other: Breath sounds are relatively clear on the ventilator anteriorly Cardio: Rate: regular rate Rhythm: regular rhythm Other: PMI difficult to palpate S1-S2 are diminished in intensity but are normal no audible murmur GI: GI Palp: Yes Soft to palpation Auscultation: normal bowel sounds Skin: General skin exam: normal color Neuro: Other: Obviously patient is sedated and unresponsive Extrem: General: normal to inspection Other: Very good distal perfusion Objective Data Vital Signs Vital Signs: Vital Signs - 24 hr 02/25/20 14:30 02/25/20 14:33 02/25/20 14:51 Temperature Pulse Rate 117 H 121 H 141 H Respiratory Rate 28 H Blood Pressure 120/102 H Pulse Oximetry 98 02/25/20 14:52 02/25/20 15:48 02/25/20 16:50 Temperature Pulse Rate 130 H 126 H 92 Respiratory Rate 19 28 H Blood Pressure 162/99 H 100/58 L Pulse Oximetry 99 99 02/25/20 17:22 02/25/20 17:30 02/25/20 18:00 Temperature 36.7 C 36.7 C Pulse Rate 121 H 120 H 134 H Respiratory Rate 20 30 H Blood Pressure 103/87 96/84 L Pulse Oximetry 100 100 97 02/25/20 18:46 02/25/20 19:00 02/25/20 20:00 Temperature 37.2 C 37.2 C 37.2 C Pulse Rate 89 103 H 95 Respiratory Rate 20 23 H 24 H Blood Pressure 95/71 L 94/68 L 99/76 L Pulse Oximetry 100 99 100 02/25/20 20:05 02/25/20 21:00 02/25/20 21:14 Temperature 37.1 C Pulse Rate 111 H 86 95 Respiratory Rate 25 H 25 H Blood Pressure 118/86 Pulse Oximetry 97 100 02/25/20 21:40 02/25/20 22:00 02/25/20 22:50 Temperature 36.4 C L Pulse Rate 95 89 98 Respiratory Rate 25 H 22 H Blood Pressure 84/56 L 84/56 L Pulse Oximetry 97 02/25/20 23:00 02/25/20 23:37 02/26/20 00:00 Temperature 35.8 C L 34.0 C L Pulse Rate 100 89 74 Respiratory Rate 22 H 20 Blood Pressure 133/98 H 140/108 H Pulse Oximetry 98 99 98 02/26/20 00:16 02/26/20 00:51 02/26/20 01:00 Temperature 32.8 C L Pulse Rate 79 79 84 Respiratory Rate 21 H 20 23 H Blood Pressure 116/86 Pulse Oximetry 97 02/26/20 02:00 02/26/20 03:00 02/26/20 03:27 Temperature 33.0 C L 35.1 C L Pulse Rate 93 94 95 Respiratory Rate 22 H 21 H 22 H Blood Pressure 108/74 137/106 H Pulse Oximetry 96 95 02/26/20 03:30 02/26/20 04:00 02/26/20 05:00 Temperature 33.0 C L
--- NOTE | 2020-02-26 11:00 | ECG_ITS ---
Measurements Intervals [place] Rate: 84 P: 23 LA: 188 QRS: -16 QRSD: 94 T: 87 QT: 407 QTc: 484 Interpretive Statements SINUS RHYTHM LOW QRS VOLTAGE IN PRECORDIAL LEADS ANTEROLATERAL ST ELEVATION MYOCARDIAL INFARCT- ACUTE HIGH LATERAL ST ELEVATION MYOCARDIAL INFARCT- RECENT BASELINE ARTIFACT- I, II, III, AVR, AVL, AVF, V1-V2, V4-V6 ABNORMAL ECG Electronically Signed On 02-26-2020 11:29:53 YARDING SUPERVISOR by James Holt D.O.
--- NOTE | 2020-02-26 11:18 | PCDIET ---
If enteral feedings initiated upon rewarming, recommend Vital 1.2 at 40mL/hr goal while on current dose of Propofol. Suggest 30mL water flush every 4 hours while IV fluids infusing. Will follow up as previously scheduled.
--- NOTE | 2020-02-26 11:28 | WPDCNINT ---
Assessment and Plan Assessment and plan (1) Acute respiratory failure: Code(s): J96.00 - Acute respiratory failure, unspecified whether with hypoxia or hypercapnia Status: Acute Assessment and Plan: Acute Respiratory failure secondary to cardiac arrest, pulmonary edema, questionable aspiration Continue full mechanical ventilation support to prevent hypoxemia/hypercarbia and end organ damage. ABG and PCXR reviewed and will repeat in am. Peep increased to 10, wean FiO2, DC further IV fluids Low tidal volume ventilation strategy to prevent volutrauma (2) Aspiration pneumonia: Code(s): J69.0 - Pneumonitis due to inhalation of food and vomit Status: Acute Assessment and Plan: Empiric Zosyn (3) ST elevation (STEMI) myocardial infarction: Qualifiers: Involved coronary artery: left main coronary artery Qualified Code(s): I21.01 - ST elevation (STEMI) myocardial infarction involving left main coronary artery Code(s): I21.3 - ST elevation (STEMI) myocardial infarction of unspecified site Status: Acute Assessment and Plan: Patient with acute anterolateral STEMI and VFib arrest. S/post failed PCI of complete occlusion of LAD Continue aspirin be beta-chaim as long as blood pressure allows Echocardiogram ordered Cardiology following Further definitive management depending on outcome of anoxic brain injury Requested nerve to remove arterial sheath (4) Cardiac arrest: Code(s): I46.9 - Cardiac arrest, cause unspecified Status: Acute Assessment and Plan: Resuscitated from VFib arrest requiring 2 shocks. On therapeutic hypothermia protocol Echo pending Amiodarone for VFib Currently in NSR (5) Essential (primary) hypertension: Code(s): I10 - Essential (primary) hypertension Status: Acute Assessment and Plan: Metoprolol as blood pressure allows currently patient is not hypertensive (6) Hyperlipidemia: Code(s): E78.5 - Hyperlipidemia, unspecified Status: Acute Assessment and Plan: Hold statin due to elevated liver enzymes at this time (7) Autoimmune hepatitis: Code(s): K75.4 - Autoimmune hepatitis Status: Acute Assessment and Plan: Patient has history of autoimmune hepatitis and is on azathioprine Currently LFTs are elevated due to shock liver Will continue to monitor levels and resume azathioprine once number stimuli (8) Atrial fibrillation, new onset: Code(s): I48.91 - Unspecified atrial fibrillation Status: Acute Assessment and Plan: Currently in normal sinus rhythm and on amiodarone infusion (9) Shock liver: Code(s): K72.00 - Acute and subacute hepatic failure without coma Status: Acute Assessment and Plan: Monitor LFTs (10) Anoxic brain injury: Code(s): G93.1 - Anoxic brain damage, not elsewhere classified Status: Acute Assessment and Plan: Patient showing signs of anoxic injury once arrival to ICU Patient started on therapeutic hypothermia protocol and is currently at goal temperature Currently sedated with propofol and Keppra added Will check head CT once patient is removed (11) Seizures: Code(s): R56.9 - Unspecified convulsions Status: Acute Assessment and Plan: I was told the nurse the patient had couple of episodes where patient appeared to be having seizures although this could be myoclonic jerks as I did not witness them myself Patient currently sedated with propofol and did receive couple of doses over 7 Ativan overnight I will start patient on Keppra empirically Will get EEG depending on neuro exam post hypothermia protocol (12) Pulmonary edema: Code(s): J81.1 - Chronic pulmonary edema Status: Acute Assessment and Plan: Increase PEEP, DC IV fluids Lasix if BP allows Additional Plan DVT prophylaxis -Lovenox Stress ulcer prophylaxis -PPI Nutrition -NPO Code Status - Full Cod
[2020-02-26] MEDS: NEOMYCIN/POLYMYXIN/BACITRACIN OINTMENT PACKET 1 PACKET (13:01)
[2020-02-26] MEDS: NOREPINEPHRINE 8 MG/D5W 250 ML 8 MG/250 ML BAG 9.38 MG IV CONT (14:05)
[2020-02-26 14:50] LABS: INR 1.1; Prothrombin Time 15.2 Seconds (11.1-14.7)
[2020-02-26 14:51] LABS: Partial Thromboplastin Time 31.3 SECONDS (22.3-36.8)
[2020-02-26 15:02] LABS: Lactic Acid Reflex 2.9 mmol/L (0.7-2.1)
[2020-02-26 15:10] LABS: Creatine Kinase 6595 U/L (55-170)
[2020-02-26] MEDS: PROPOFOL IV EMULSION 100 ML 19.35 MG IV CONT ×2 (15:12→20:32)
[2020-02-26 15:18] LABS: Glucose Point of Care 123 (65-105)
[2020-02-26 16:55] LABS: Anion Gap 8 mmol/L (8-16); Blood Urea Nitrogen 21 mg/dL (9-20); Calcium 8.4 mg/dL (8.4-10.2); Carbon Dioxide 26 mmol/L (22-30); Chloride 104 mmol/L (98-107); Estimated CRCL calculation 73 ml/min; Estimated Glomerular Filt Rate 58; Glucose 119 mg/dL (75-110); Potassium 5.9 mmol/L (3.4-5.0); Sodium 138 mmol/L (137-145)
[2020-02-26 17:08] LABS: Magnesium 1.9 mg/dL (1.6-2.3)
[2020-02-26 17:10] LABS: Alveolar/Arterial O2 Gradient 598.3 mmHg; Arterial Blood Gas PEEP 10 cmH2O; Arterial Blood Gas Vent Mode CMV; Arterial Blood Gas Ventilator rate 20 /MIN; Base Excess ABG -10.2 mEq/l (+/-2.0); Device VENTILATOR; Fractional Inspired Oxygen 100 %; HCO3 ABG 17.2 mEq/l (22.0-26.0); Modified Allen's Test Pass; Oxygen Content ABG 20.6 %vol (16.0-22.0); Oxygen Saturation ABG 91.2 % (95.0-100.0); Oxyhemoglobin 91.7 % THb (90.0-100.0); PCO2 ABG 43.2 mmHg (35.0-45.0); PO2 ABG 71.5 mmHg (80.0-100.0); PO2 FiO2 Ratio Arterial Blood 0.71 %; Site Drawn LEFT RADIAL; pH ABG 7.219 (7.350-7.450)
[2020-02-26 17:11] LABS: Arterial Blood Gas Tidal Volume 450 ml
[2020-02-26 17:48] LABS: Reflex Lactic Acid Yes or No Add Lactic
[2020-02-26 18:33] LABS: Lactic Acid 1.8 mmol/L (0.7-2.1)
--- NOTE | 2020-02-26 18:46 | ECHO_ITS ---
Patient Info Name: Cristofer Mckeon Age: 59 years : 1960 Gender: Male Ht: 77 in Wt: 284 lbs BSA: 2.68 m2 HR: 105 bpm BP: 127 / 94 mmHg Heart Rhythm: Sinus Rhythm Technical Quality: Good Exam Date: 02/26/2020 9:59 AM Exam Location: [facility] Patient Status: Inpatient Admit Date: 02/25/2020 Staff Ordering Physician: Nacho Rhodes MD Cage Cashier: Augustine Malave RDCS Attending Provider: Chris Alvares MD Exam Type: CA echo dop color flow w con Study Info Indications I22.0 - Subsequent ST elevation (STEMI) myocardial infarction of anterior wall Complete two-dimensional, color flow and Doppler transthoracic echocardiogram is performed with contrast to opacify the left ventricle and to improve the deliniation of the left ventricle endocardial borders. Contrast/Agitated Saline Contrast/Ag. Saline: Definity Amount: 3.00 ml Administered By: Jayson Jacobo RN Existing IV Access: Yes History/Risk Factors STEMI; Ventricular fibrillation; HTN. Summary 1. Left ventricular chamber dimension is mildly enlarged. 2. Left ventricular systolic function is severely reduced, estimated at 20-25%. 3. The anterior wall and anteroseptal segments are akinetic. 4. Definity contrast injected to improve visualization. 5. Aortic valve is mildly sclerotic but exhibits good leaflet separation. 6. Wall motion abnormalities compatible with an expected from large anterior infarction which occurred yesterday. Left Ventricle Left ventricular chamber dimension is mildly enlarged. Left ventricular systolic function is severely reduced, estimated at 20-25%. The left ventricular diastolic function is normal. The anterior wall and anteroseptal segments are akinetic. Definity contrast injected to improve visualization. Right Ventricle Right ventricular chamber dimension is normal. Left Atria Left atrial chamber dimension is normal. Right Atria Right atrial chamber dimension is normal. Aortic Valve The aortic valve is trileaflet. There is mild aortic valve sclerosis. Pulmonic Valve The pulmonic valve is not well visualized. Mitral Valve The mitral valve has normal leaflets. There is no mitral valve regurgitation. Tricuspid Valve The tricuspid valve leaflets are normal. Pericardium/Pleural The pericardium appears normal. Aorta The aortic root size at the sinus of Valsalva is normal. Left Ventricular Outflow Tract Name Value Normal LVOT 2D LVOT Diameter 2.10 cm LVOT Doppler LVOT Peak Gradient 2 mmHg LVOT Mean Gradient 1 mmHg LVOT VTI 12.54 cm LVOT VTI/AV VTI Ratio 0.55 LVOT Stroke Volume 43.22 ml LVOT CO 3.83 l/min LVOT CI 1.43 L/min/m2 Mitral Valve Name Value Normal
[2020-02-26 18:49] LABS: Creatine Kinase 7221 U/L (55-170)
--- NOTE | 2020-02-26 18:53 | PC.NURSE ---
, Adrienne, at bedside post rounds at around 1045. Dr. Alvares and Dr. Rhodes to bedside to update with on plan of care. updated x2 through the shift about patient's condition.
[2020-02-26 19:48] LABS: Hematocrit 44.6 % (42.0-52.0); Hemoglobin 15.5 g/dL (14.0-18.0); Mean Corpuscular HGB Conc 34.8 g/dl (32-36); Mean Corpuscular Hemoglobin 33.9 pg (26-34); Mean Corpuscular Volume 97.6 fl (80-100); Mean Platelet Volume 11.2 fl (7.4-10.4); Platelet Count Result 156 k/mm3 (150-375); Red Blood Count 4.57 M/mm3 (4.6-6.20); Red Cell Distribution Width 13.4 % (11.5-14.5); White Blood Count 14.9 K/mm3 (4.5-10.0)
[2020-02-26 20:00] LABS: Lactic Acid Reflex 1.5 mmol/L (0.7-2.1)
[2020-02-26 21:24] LABS: Alveolar/Arterial O2 Gradient 628.4 mmHg; Base Excess ABG -9.9 mEq/l (+/-2.0); Carboxyhemoglobin 0.3 % THb (0-2.0); Fractional Inspired Oxygen 100 %; HCO3 ABG 17.2 mEq/l (22.0-26.0); Methemoglobin ABG 0.2 %THb (0-1.5); Oxygen Content ABG 20.7 %vol (16.0-22.0); Oxygen Saturation ABG 92.9 % (95.0-100.0); Oxyhemoglobin 92.2 % THb (90.0-100.0); PCO2 ABG 42.1 mmHg (35.0-45.0); PO2 ABG 76.5 mmHg (80.0-100.0); PO2 FiO2 Ratio Arterial Blood 0.76 %; Reduced Hemoglobin 7.3 %THb (0-5.0)
[2020-02-26 21:25] LABS: Modified Allen's Test Unable to perform; Site Drawn RIGHT RADIAL
[2020-02-26 21:26] LABS: Arterial Blood Gas PEEP 10 cmH2O; Arterial Blood Gas Vent Mode CMV; Arterial Blood Gas Ventilator rate 20 /MIN; Device VENTILATOR
[2020-02-26 21:27] LABS: Arterial Blood Gas Tidal Volume 450 ml
[2020-02-26] MEDS: SODIUM BICARBONATE 8.4% 50 MEQ/50 ML SYRINGE 100 MEQ IV PUSH (21:40)
[2020-02-26] MEDS: SODIUM CHLORIDE 0.9% IV 1,000 ML 999 ML IV CONT (21:40)
[2020-02-26] MEDS: SODIUM BICARBONATE 8.4% 150 MEQ in DEXTROSE 5% 1,000 ML 950 ML 100 MEQ IV CONT (23:28)
[2020-02-27] VITALS (41 sets, daily range): BP systolic 84–113; BP diastolic 64–90; PULSE 73–108; RESP 16–34; TEMP 33–38; O2SAT 90–100
[2020-02-27] MEDS: METOPROLOL TARTRATE 25 MG TABLET FEED TUBE ×3 (00:40→20:14)
[2020-02-27 01:24] LABS: INR 1.2; Prothrombin Time 15.7 Seconds (11.1-14.7)
[2020-02-27 01:25] LABS: Partial Thromboplastin Time 33.5 SECONDS (22.3-36.8)
[2020-02-27 01:29] LABS: Lactic Acid Reflex 1.9 mmol/L (0.7-2.1)
[2020-02-27] MEDS: PROPOFOL IV EMULSION 100 ML 19.35 MG IV CONT ×2 (02:00→06:20)
[2020-02-27] MEDS: ROCURONIUM BROMIDE 50 MG/5 ML VIAL IV PUSH (02:10)
[2020-02-27 02:19] LABS: Creatine Kinase 7448 U/L (55-170)
[2020-02-27 05:18] LABS: Alveolar/Arterial O2 Gradient 624.5 mmHg; Base Excess ABG -1.7 mEq/l (+/-2.0); Carboxyhemoglobin 0.3 % THb (0-2.0); Fractional Inspired Oxygen 100 %; HCO3 ABG 22.6 mEq/l (22.0-26.0); Methemoglobin ABG 0.1 %THb (0-1.5); Oxygen Content ABG 17.7 %vol (16.0-22.0); Oxyhemoglobin 84.5 % THb (90.0-100.0); PCO2 ABG 37.3 mmHg (35.0-45.0); PO2 ABG 51.2 mmHg (80.0-100.0); PO2 FiO2 Ratio Arterial Blood 0.51 %; Reduced Hemoglobin 15.1 %THb (0-5.0); Total Hemoglobin 14.9 g/dL (12.0-18.0); pH ABG 7.401 (7.350-7.450)
[2020-02-27 05:21] LABS: Device VENTILATOR; Modified Allen's Test Unable to perform; Oxygen Saturation ABG 86.5 % (95.0-100.0); Site Drawn RIGHT RADIAL
[2020-02-27 05:23] LABS: Arterial Blood Gas PEEP 10 cmH2O; Arterial Blood Gas Tidal Volume 450 ml; Arterial Blood Gas Vent Mode CMV; Arterial Blood Gas Ventilator rate 24 /MIN
[2020-02-27 05:54] LABS: Hematocrit 40.7 % (42.0-52.0); Immature Platelet Fraction Pct 8.6 % (0.9-11.2); Mean Corpuscular HGB Conc 34.4 g/dl (32-36); Mean Corpuscular Hemoglobin 33.3 pg (26-34); Mean Corpuscular Volume 96.7 fl (80-100); Mean Platelet Volume 11.3 fl (7.4-10.4); Platelet Count Result 134 k/mm3 (150-375); Red Blood Count 4.21 M/mm3 (4.6-6.20); Red Cell Distribution Width 13.2 % (11.5-14.5); White Blood Count 12.9 K/mm3 (4.5-10.0)
[2020-02-27 06:12] LABS: Lactic Acid Reflex 1.9 mmol/L (0.7-2.1)
[2020-02-27 06:21] LABS: Alanine Aminotransferase 115 U/L (4-50); Albumin Level 3.5 g/dL (3.5-5.1); Alkaline Phosphatase 52 U/L (38-126); Anion Gap 7 mmol/L (8-16); Aspartate Amino Transferase 666 U/L (17-59); Bilirubin,Total 0.6 mg/dL (0.2-1.3); Blood Urea Nitrogen 27 mg/dL (9-20); Calcium 7.8 mg/dL (8.4-10.2); Carbon Dioxide 29 mmol/L (22-30); Chloride 102 mmol/L (98-107); Estimated CRCL calculation 78 ml/min; Estimated Glomerular Filt Rate > 60; Glucose 133 mg/dL (75-110); Magnesium 1.6 mg/dL (1.6-2.3); Phosphorus 4.6 mg/dL (2.5-4.5); Potassium 4.1 mmol/L (3.4-5.0); Sodium 138 mmol/L (137-145)
[2020-02-27] MEDS: FENTANYL 2,500MCG/NS250ML(*CRX 2,500 MCG/250 ML BAG 10 MCG IV CONT (06:28)
[2020-02-27 07:20] LABS: Creatine Kinase 6748 U/L (55-170)
[2020-02-27] MEDS: AMIODARONE 360 MG/D5W 200 ML 360 MG/200 ML BAG 16.67 MG IV CONT ×2 (08:14→20:08)
[2020-02-27] MEDS: NOREPINEPHRINE 8 MG/D5W 250 ML 8 MG/250 ML BAG 7.5 MG IV CONT (08:15)
[2020-02-27] MEDS: ENOXAPARIN 40 MG/0.4 ML SYRINGE SUB-Q (08:18)
[2020-02-27] MEDS: PANTOPRAZOLE SODIUM IV 40 MG VIAL IV PUSH (08:19)
[2020-02-27] MEDS: ASPIRIN 81 MG CHEWABLE TABLET PO (08:19)
[2020-02-27] MEDS: ROSUVASTATIN 10 MG TABLET 20 MG FEED TUBE (08:20)
[2020-02-27] MEDS: levETIRAcetam ORAL SOL 500 MG/5 ML UDC FEED TUBE ×2 (08:42→20:13)
[2020-02-27] MEDS: FUROSEMIDE INJ 40 MG/4 ML VIAL IV PUSH ×2 (08:45→16:14)
--- NOTE | 2020-02-27 08:54 | WPDINTPN ---
Progress Note: A&P Assessment and Plan (1) Acute respiratory failure: Code(s): J96.00 - Acute respiratory failure, unspecified whether with hypoxia or hypercapnia Status: Acute Assessment and Plan: Acute Respiratory failure secondary to cardiac arrest, pulmonary edema, questionable aspiration Continue full mechanical ventilation support to prevent hypoxemia/hypercarbia and end organ damage. ABG and PCXR reviewed and will repeat in am. Peep increased to 14, wean FiO2, Low tidal volume ventilation strategy to prevent volutrauma Start Lasix for pulmonary edema (2) Aspiration pneumonia: Code(s): J69.0 - Pneumonitis due to inhalation of food and vomit Status: Acute Assessment and Plan: Empiric Zosyn (3) ST elevation (STEMI) myocardial infarction: Qualifiers: Involved coronary artery: left main coronary artery Qualified Code(s): I21.01 - ST elevation (STEMI) myocardial infarction involving left main coronary artery Code(s): I21.3 - ST elevation (STEMI) myocardial infarction of unspecified site Status: Acute Assessment and Plan: Patient with acute anterolateral STEMI and VFib arrest. S/post failed PCI of complete occlusion of LAD Continue aspirin be beta-chaim as long as blood pressure allows Echocardiogram reviewed Cardiology following Further definitive management depending on outcome of anoxic brain injury Requested nerve to remove arterial sheath (4) Cardiac arrest: Code(s): I46.9 - Cardiac arrest, cause unspecified Status: Acute Assessment and Plan: Resuscitated from VFib arrest requiring 2 shocks. Completed therapeutic hypothermia protocol Amiodarone for VFib Currently in NSR (5) Essential (primary) hypertension: Code(s): I10 - Essential (primary) hypertension Status: Acute Assessment and Plan: Metoprolol as blood pressure allows currently patient is not hypertensive (6) Hyperlipidemia: Code(s): E78.5 - Hyperlipidemia, unspecified Status: Acute Assessment and Plan: Hold statin due to elevated liver enzymes at this time (7) Autoimmune hepatitis: Code(s): K75.4 - Autoimmune hepatitis Status: Acute Assessment and Plan: Patient has history of autoimmune hepatitis and is on azathioprine Currently LFTs are elevated due to shock liver Will continue to monitor levels and resume azathioprine once number stimuli (8) Atrial fibrillation, new onset: Code(s): I48.91 - Unspecified atrial fibrillation Status: Acute Assessment and Plan: Currently in normal sinus rhythm and on amiodarone infusion (9) Shock liver: Code(s): K72.00 - Acute and subacute hepatic failure without coma Status: Acute Assessment and Plan: Monitor LFTs (10) Anoxic brain injury: Code(s): G93.1 - Anoxic brain damage, not elsewhere classified Status: Acute Assessment and Plan: Patient showing signs of anoxic injury once arrival to ICU Patient started on therapeutic hypothermia protocol and has completed now and rewarmed He did respond to calling his name but unable to assess fully due to he more respiratory instability Currently sedated with propofol. Continue Keppra Will check head CT (11) Seizures: Code(s): R56.9 - Unspecified convulsions Status: Acute Assessment and Plan: I was told the nurse the patient had couple of episodes where patient appeared to be having seizures although this could be myoclonic jerks as I did not witness them myself Patient currently sedated with propofol and did receive couple of doses off Ativan on 1st night Continue Keppra empirically Will get EEG if there is any recurrence (12) Pulmonary edema: Code(s): J81.1 - Chronic pulmonary edema Status: Acute Assessment and Plan: Increase PEEP, Lasix start (13) Ischemic cardiomyopathy: Code(s): I25.5 - Ischemic cardiomyopathy S
[2020-02-27] MEDS: PROPOFOL IV EMULSION 100 ML 38.7 MG IV CONT ×2 (09:35→15:54)
[2020-02-27] MEDS: SODIUM BICARBONATE 8.4% 150 MEQ in DEXTROSE 5% 1,000 ML 950 ML 100 MEQ IV CONT ×2 (11:00→23:17)
--- NOTE | 2020-02-27 11:13 | PM.PNCARD ---
Progress Note: A&P Additional Plan 59-year-old man with large anterior infarction as detailed above. VFib arrest prior to hospitalization and patient has undergone hypothermia yesterday is now warmed and remains on the ventilator. Chest x-ray has appearance of pulmonary edema despite relatively clear sounding chest on physical exam. Hemodynamics are otherwise stable oxygenation is adequate. Somewhat encouraging that he really does respond to calling his name by opening his eyes. Prognosis is guarded given this situation. If his neurological status is more favorable we could consider transfer to a higher level of care for ventricular assist although I am less enthusiastically about that since this is a completed large anterior infarction rather than a situation where we are anticipating recovery of myocardium. Chris Alvares MD [facility] Subjective Date/time seen: Date of service: 02/27/20 11:13 Interval history: 59-year-old patient with: Large anterior wall myocardial infarction which presented very late in his course 12-13 hours into the event and unsuccessful attempt at PCI of the occluded LAD. Patient had VFib arrest at home prior to the hospitalization and another VFib arrest in the ICU following his procedure. Following hypothermia yesterday he is still on the ventilator in the ICU. He does open eyes to calling his name but otherwise does not follow commands. Exam Const: Other: Intubated 59-year-old black male ICU. HENMT: Mouth: Yes moist mucous membranes Eyes: Sclera: sclerae normal Neck: Neck: supple and no JVD Other: Carotid upstrokes are normal there are no bruits audible Resp: Other: Breath sounds are essentially clear anteriorly Cardio: Rate: regular rate Rhythm: regular rhythm Other: PMI not palpable no audible murmur GI: GI Palp: Yes Soft to palpation Auscultation: normal bowel sounds Skin: General skin exam: normal color Neuro: Other: Patient on ventilator sedated in the ICU Extrem: General: normal to inspection Objective Data Vital Signs Vital Signs: Vital Signs - 24 hr 02/26/20 11:35 02/26/20 11:46 02/26/20 12:00 Temperature 34.4 C L Pulse Rate 83 81 79 Pulse Rate [Right Pedal (Dorsalis Pedis) Palpation] Respiratory Rate 20 20 Blood Pressure 94/71 L 80/68 L Pulse Oximetry 96 96 94 02/26/20 12:35 02/26/20 13:00 02/26/20 13:02 Temperature 34.1 C L Pulse Rate 77 76 75 Pulse Rate [Right Pedal (Dorsalis Pedis) Palpation] Respiratory Rate 20 17 Blood Pressure 91/74 L 91/74 L Pulse Oximetry 96 95 02/26/20 13:30 02/26/20 14:00 02/26/20 14:05 Temperature 33.5 C L Pulse Rate 74 73 71 Pulse Rate [Right Pedal (Dorsalis Pedis) Palpation] Respiratory Rate 20 20 Blood Pressure 92/66 L 70/56 L 70/56 L Pulse Oximetry 95 94 02/26/20 14:17 02/26/20 15:00 02/26/20 15:12 Temperature 33.0 C L Pulse Rate 68 72 65 Pulse Rate [Right Pedal (Dorsalis Pedis) Palpation] Respiratory Rate 20 24 H Blood Pressure 98/74 L Pulse Oximetry 94 93 02/26/20 16:00 02/26/20 17:00 02/26/20 18:00 Temperature 33.0 C L 33.0 C L 33.1 C L Pulse Rate 63 60 64 Pulse Rate [Right Pedal (Dorsalis Pedis) Palpation] Respiratory Rate 20 23 H 22 H Blood Pressure 97/68 L 85/71 L 78/65 L Pulse Oximetry 97 96 97 02/26/20 18:22 02/26/20 18:51 02/26/20 19:00 Temperature 33.7 C L Pulse Rate 71 72 85 Pulse Rate [Right Pedal (Dorsalis Pedis) Palpation] Respiratory Rate 20 21 H Blood Pressure 78/63 L Pulse Oximetry 96 02/26/20 20:00 02/26/20 20:01 02/26/20 20:23 Temperature 33.6 C L Pulse Rate 75 85 75 Pulse Rate [Right Pedal (Dorsalis Pedis) Palpation] 75 Respiratory Rate 23 H 23 H Blood Pressure 77/66 L Pulse Oximetry 96 95 02/26/20 20:32 02/26/20 20:44 02/26/20 21:00 Temperature 33.4 C L Pulse Rate 75 98 89 Pulse Rate [Right Pedal (Dorsalis Pedis) Palpation] Respiratory Rate 23 H 24 H Blood Pressure 82/69 L 77/65 L Pulse Oximetry 97
[2020-02-27 12:28] LABS: Glucose Point of Care 118 (65-105)
[2020-02-27] MEDS: PROPOFOL IV EMULSION 100 ML 34.83 MG IV CONT (12:47)
[2020-02-27 13:02] LABS: Creatine Kinase 6465 U/L (55-170)
[2020-02-27] MEDS: PROPOFOL IV EMULSION 100 ML 39 MG IV CONT (17:26)
[2020-02-27 18:03] LABS: Glucose Point of Care 125 (65-105)
[2020-02-27] MEDS: PROPOFOL IV EMULSION 100 ML 31.2 MG IV CONT (20:49)
[2020-02-27 22:33] LABS: Anion Gap 4 mmol/L (8-16); Blood Urea Nitrogen 25 mg/dL (9-20); Calcium 7.6 mg/dL (8.4-10.2); Carbon Dioxide 36 mmol/L (22-30); Chloride 95 mmol/L (98-107); Estimated CRCL calculation 78 ml/min; Estimated Glomerular Filt Rate > 60; Glucose 140 mg/dL (75-110); Magnesium 1.5 mg/dL (1.6-2.3); Potassium 3.9 mmol/L (3.4-5.0); Sodium 135 mmol/L (137-145)
[2020-02-27 23:27] LABS: Glucose Point of Care 149 (65-105)
[2020-02-28] VITALS (42 sets, daily range): BP systolic 86–108; BP diastolic 56–78; PULSE 77–114; RESP 17–34; TEMP 37.7–39; O2SAT 92–100
[2020-02-28] MEDS: PROPOFOL IV EMULSION 100 ML 27.3 MG IV CONT ×3 (00:09→20:56)
[2020-02-28 05:01] LABS: Hematocrit 34.9 % (42.0-52.0); Hemoglobin 12.3 g/dL (14.0-18.0); Immature Platelet Fraction Pct 7.7 % (0.9-11.2); Mean Corpuscular HGB Conc 35.2 g/dl (32-36); Mean Corpuscular Volume 96.4 fl (80-100); Mean Platelet Volume 11.7 fl (7.4-10.4); Platelet Count Result 122 k/mm3 (150-375); Red Blood Count 3.62 M/mm3 (4.6-6.20); Red Cell Distribution Width 13.1 % (11.5-14.5); White Blood Count 8.7 K/mm3 (4.5-10.0)
[2020-02-28 05:02] LABS: Alveolar/Arterial O2 Gradient 296.7 mmHg; Base Excess ABG 6.3 mEq/l (+/-2.0); Carboxyhemoglobin 0.3 % THb (0-2.0); Fractional Inspired Oxygen 60 %; HCO3 ABG 29.4 mEq/l (22.0-26.0); Methemoglobin ABG 0.1 %THb (0-1.5); Modified Allen's Test Pass; Oxygen Content ABG 17.6 %vol (16.0-22.0); Oxygen Saturation ABG 97.6 % (95.0-100.0); PCO2 ABG 36.9 mmHg (35.0-45.0); PO2 ABG 90.5 mmHg (80.0-100.0); PO2 FiO2 Ratio Arterial Blood 1.51 %; Reduced Hemoglobin 3.6 %THb (0-5.0); Site Drawn RIGHT RADIAL; pH ABG 7.519 (7.350-7.450)
[2020-02-28 05:03] LABS: Device VENTILATOR
[2020-02-28 05:05] LABS: Arterial Blood Gas PEEP 14 cmH2O; Arterial Blood Gas Tidal Volume 450 ml; Arterial Blood Gas Vent Mode CMV; Arterial Blood Gas Ventilator rate 24 /MIN
--- NOTE | 2020-02-28 05:06 | PCRCNOTE ---
AT 05:05 CRITICAL ABG RESULTS WERE CALLED TO NAOMI MELO.
[2020-02-28 05:24] LABS: Alanine Aminotransferase 89 U/L (4-50); Albumin Level 3.2 g/dL (3.5-5.1); Alkaline Phosphatase 49 U/L (38-126); Anion Gap 3 mmol/L (8-16); Aspartate Amino Transferase 407 U/L (17-59); Bilirubin,Total 0.6 mg/dL (0.2-1.3); Blood Urea Nitrogen 25 mg/dL (9-20); Calcium 7.6 mg/dL (8.4-10.2); Carbon Dioxide 38 mmol/L (22-30); Chloride 95 mmol/L (98-107); Creatine Kinase 3094 U/L (55-170); Estimated CRCL calculation 69 ml/min; Estimated Glomerular Filt Rate 54; Glucose 132 mg/dL (75-110); Magnesium 1.6 mg/dL (1.6-2.3); Phosphorus 3.7 mg/dL (2.5-4.5); Potassium 3.2 mmol/L (3.4-5.0); Sodium 136 mmol/L (137-145)
[2020-02-28] MEDS: ASPIRIN 81 MG CHEWABLE TABLET PO (07:34)
[2020-02-28] MEDS: ENOXAPARIN 40 MG/0.4 ML SYRINGE SUB-Q (07:34)
[2020-02-28] MEDS: levETIRAcetam ORAL SOL 500 MG/5 ML UDC FEED TUBE ×2 (07:34→20:12)
[2020-02-28] MEDS: METOPROLOL TARTRATE 25 MG TABLET FEED TUBE ×2 (07:35→20:12)
[2020-02-28] MEDS: PANTOPRAZOLE SODIUM IV 40 MG VIAL IV PUSH (07:35)
[2020-02-28] MEDS: ROSUVASTATIN 10 MG TABLET 20 MG FEED TUBE (07:35)
[2020-02-28] MEDS: PROPOFOL IV EMULSION 100 ML 23.4 MG IV CONT ×3 (07:44→16:25)
[2020-02-28] MEDS: POTASSIUM CHLORIDE 20 MEQ PACKET (FOR LIQUID) 40 MEQ FEED TUBE ×2 (07:47→14:09)
[2020-02-28] MEDS: AMIODARONE 360 MG/D5W 200 ML 360 MG/200 ML BAG 16.67 MG IV CONT ×2 (07:48→19:27)
--- NOTE | 2020-02-28 07:51 | ECG_ITS ---
Measurements Intervals [place] Rate: 109 P: CT: 0 QRS: 21 QRSD: 97 T: 63 QT: 320 QTc: 433 Interpretive Statements SINUS TACHYCARDIA ATRIAL AND VENTRICULAR PREMATURE COMPLEXES LOW QRS VOLTAGE IN DIFFUSE LEADS ANTEROLATERAL ST ELEVATION MYOCARDIAL INJURY- RECENT BASELINE WANDER- I, II, III, AVR, AVL, AVF, V1 ABNORMAL ECG Electronically Signed On 02-28-2020 9:35:07 WAREHOUSE LOGISTICS MANAGER by James Holt D.O.
[2020-02-28] MEDS: SODIUM CHLORIDE 0.9% IV 1,000 ML 50 ML IV CONT (08:05)
[2020-02-28] MEDS: ACETAMINOPHEN ELIXIR 325 MG/10.15 ML UDC 650 MG PO ×3 (08:05→20:01)
--- NOTE | 2020-02-28 08:52 | WPDINTPN ---
Progress Note: A&P Assessment and Plan (1) Acute respiratory failure: Code(s): J96.00 - Acute respiratory failure, unspecified whether with hypoxia or hypercapnia Status: Acute Assessment and Plan: Acute Respiratory failure secondary to cardiac arrest, pulmonary edema, questionable aspiration Continue full mechanical ventilation support to prevent hypoxemia/hypercarbia and end organ damage. ABG and PCXR reviewed and will repeat in am. Peep decreased to 12, wean FiO2 which is down to 60% Low tidal volume ventilation strategy to prevent volutrauma Discontinue IV bicarb Continue Lasix for pulmonary edema Advance ETT by 2 cm (2) Aspiration pneumonia: Code(s): J69.0 - Pneumonitis due to inhalation of food and vomit Status: Acute Assessment and Plan: Continue empiric Zosyn (3) ST elevation (STEMI) myocardial infarction: Qualifiers: Involved coronary artery: left main coronary artery Qualified Code(s): I21.01 - ST elevation (STEMI) myocardial infarction involving left main coronary artery Code(s): I21.3 - ST elevation (STEMI) myocardial infarction of unspecified site Status: Acute Assessment and Plan: Patient with acute anterolateral STEMI and VFib arrest. S/post failed PCI of complete occlusion of LAD Continue aspirin be beta-chaim as long as blood pressure allows Echocardiogram reviewed Cardiology following Further definitive management for cardiology (4) Cardiac arrest: Code(s): I46.9 - Cardiac arrest, cause unspecified Status: Acute Assessment and Plan: Resuscitated from VFib arrest requiring 2 shocks. Completed therapeutic hypothermia protocol Amiodarone for VFib for cardiology Currently in NSR (5) Essential (primary) hypertension: Code(s): I10 - Essential (primary) hypertension Status: Acute Assessment and Plan: Metoprolol as blood pressure allows currently patient is not hypertensive (6) Hyperlipidemia: Code(s): E78.5 - Hyperlipidemia, unspecified Status: Acute Assessment and Plan: Hold statin due to elevated liver enzymes at this time (7) Autoimmune hepatitis: Code(s): K75.4 - Autoimmune hepatitis Status: Acute Assessment and Plan: Patient has history of autoimmune hepatitis and is on azathioprine Currently LFTs are elevated due to shock liver but are improving Will continue to monitor levels and resume azathioprine once number stabilize (8) Atrial fibrillation, new onset: Code(s): I48.91 - Unspecified atrial fibrillation Status: Acute Assessment and Plan: Currently in normal sinus rhythm and on amiodarone infusion (9) Shock liver: Code(s): K72.00 - Acute and subacute hepatic failure without coma Status: Acute Assessment and Plan: Monitor LFTs which are improving (10) Anoxic brain injury: Code(s): G93.1 - Anoxic brain damage, not elsewhere classified Status: Acute Assessment and Plan: Patient showing signs of anoxic injury once arrival to ICU Patient started on therapeutic hypothermia protocol and has completed now and rewarmed Today after sedation holiday patient followed commands Currently sedated with propofol and fentanyl Continue Keppra Head CT was done yesterday and was unremarkable for any acute change (11) Seizures: Code(s): R56.9 - Unspecified convulsions Status: Acute Assessment and Plan: I was told the nurse the patient had couple of episodes where patient appeared to be having seizures although this could be myoclonic jerks as I did not witness them myself Patient currently sedated with propofol and did receive couple of doses off Ativan on 1st night Continue Keppra empirically for now Will get EEG if there is any recurrence (12) Pulmonary edema: Code(s): J81.1 - Chronic pulmonary edema Status: Acute Assessment and Plan: Improving. Continue Lasix (13) I
--- NOTE | 2020-02-28 11:12 | PM.PNCARD ---
Progress Note: A&P Additional Plan 59-year-old gentleman with: Large acute anterior wall myocardial infarction with very late presentation and unsuccessful attempted PCI of his occluded LAD. Patient is in critical condition it is very good to see that he is neurologically alert and responsive when no longer sedated. Hemodynamically still rather tenuous systolic blood pressure is marginal and requiring some I inotropic support. Therefore beta-chaim and MARU-inhibitor cannot be started at this time. So far no evidence of major organ system failure and prognosis wall guarded is somewhat more hopeful. Chris Alvares MD [facility] Subjective Date/time seen: 02/28/20 11:12 Interval history: 59-year-old patient with: Large anterior wall myocardial infarction which presented very late in his course 12-13 hours into the event and unsuccessful attempt at PCI of the occluded LAD. Patient had VFib arrest at home prior to the hospitalization and another VFib arrest in the ICU following his procedure. 02/28/2020: Patient is now awake and responsive when sedation is interrupted. Very good news that he does not have a profound anoxic encephalopathy. Urinary output is better still requiring some Levophed for pressure support. Still receiving intravenous amiodarone and aspirin. Exam Narrative: Exam Narrative: Well-developed well-nourished black male on the ventilator in the ICU currently sedated. Const: Other: Intubated 59-year-old black male ICU. HENMT: Mouth: Yes moist mucous membranes Eyes: General: appearance normal, both eyes and all related structures Sclera: sclerae normal Neck: Neck: supple and no JVD Thyroid: thyroid normal Other: Carotid upstrokes are normal there are no bruits audible Resp: Effort & Inspection: normal respiratory effort Auscultation: clear to auscultation bilaterally Other: Breath sounds are essentially clear anteriorly Cardio: Rate: regular rate and tachycardic Rhythm: regular rhythm and abnormal rhythm irregularly irregular Heart sounds: no murmurs Other: PMI not palpable no audible murmur GI: Inspection: non-distended Auscultation: normal bowel sounds : Male General Exam: Yes normal external exam Skin: General skin exam: normal color and no rashes or lesions noted Neuro: Cognition (Neuro): abnormal cognition ( unconscious) Other: Patient on ventilator sedated in the ICU Extrem: General: normal to inspection and no edema Other: Very good distal perfusion Psych: Mental Status: mental status grossly abnormal Objective Data Vital Signs Vital Signs: Vital Signs - 24 hr 02/27/20 12:00 02/27/20 13:35 02/27/20 13:52 Temperature 36.6 C Pulse Rate 102 H 101 H 102 H Respiratory Rate 26 H 24 H Blood Pressure 106/88 111/86 Pulse Oximetry 99 99 99 02/27/20 16:00 02/27/20 16:07 02/27/20 16:45 Temperature 36.6 C Pulse Rate 104 H 105 H 95 Respiratory Rate 32 H 34 H Blood Pressure 103/78 Pulse Oximetry 97 99 02/27/20 17:17 02/27/20 17:29 02/27/20 18:00 Temperature Pulse Rate 96 95 96 Respiratory Rate 24 H 24 H Blood Pressure 87/64 L 97/68 L Pulse Oximetry 98 02/27/20 19:23 02/27/20 20:00 02/27/20 20:08 Temperature 36.6 C Pulse Rate 97 105 H 102 H Respiratory Rate 31 H Blood Pressure 99/77 L 99/77 L Pulse Oximetry 100 95 02/27/20 20:14 02/27/20 20:49 02/27/20 22:00 Temperature Pulse Rate 102 H 102 H 104 H Respiratory Rate 24 H 24 H Blood Pressure 103/81 Pulse Oximetry 99 02/27/20 22:38 02/27/20 23:15 02/27/20 23:16 Temperature Pulse Rate 108 H 105 H 104 H Respiratory Rate 25 H Blood Pressure 103/73 Pulse Oximetry 98 02/28/20 00:00 02/28/20 00:09 02/28/20 01:20 Temperature Pulse Rate 113 H 102 H Respiratory Rate 25 H Blood Pressure Pulse Oximetry 98 98 02/28/20 02:00 02/28/20 03:49 02/28/20 03:54 Temperature Pulse Rate 97 102 H 102 H Respiratory Rate 24 H 34 H 34 H Blood Pressure 94/63
[2020-02-28 12:05] LABS: Glucose Point of Care 142 (65-105)
[2020-02-28] MEDS: ALBUTEROL SULFATE NEB 2.5 MG/0.5 ML INH INHALATION ×2 (14:54→19:48)
[2020-02-28] MEDS: IPRATROPIUM BR 0.02% INH SOLN 0.5 MG/2.5 ML VIAL INHALATION ×2 (14:54→19:48)
[2020-02-28 18:08] LABS: Glucose Point of Care 132 (65-105)
[2020-02-28] MEDS: DORNASE ALFA INH SOLN 1 MG/ML 2.5 ML AMP 2.5 MG INHALATION (19:48)
[2020-02-28 23:32] LABS: Glucose Point of Care 155 (65-105)
[2020-02-29] VITALS (50 sets, daily range): BP systolic 92–114; BP diastolic 69–82; PULSE 79–144; RESP 17–48; TEMP 37.4–37.9; O2SAT 96–100
[2020-02-29] MEDS: PROPOFOL IV EMULSION 100 ML 27.3 MG IV CONT ×5 (00:28→17:58)
[2020-02-29] MEDS: IPRATROPIUM BR 0.02% INH SOLN 0.5 MG/2.5 ML VIAL INHALATION ×4 (01:34→20:08)
[2020-02-29] MEDS: ALBUTEROL SULFATE NEB 2.5 MG/0.5 ML INH INHALATION ×4 (01:34→20:08)
[2020-02-29] MEDS: PROPOFOL IV EMULSION 100 ML 23.4 MG IV CONT (04:18)
[2020-02-29] MEDS: SODIUM CHLORIDE 0.9% IV 1,000 ML 50 ML IV CONT (04:19)
[2020-02-29 04:45] LABS: Alveolar/Arterial O2 Gradient 160.2 mmHg; Base Excess ABG 5.8 mEq/l (+/-2.0); Carboxyhemoglobin 0.3 % THb (0-2.0); Fractional Inspired Oxygen 40 %; HCO3 ABG 30.7 mEq/l (22.0-26.0); Methemoglobin ABG 0.2 %THb (0-1.5); Oxygen Content ABG 18.1 %vol (16.0-22.0); Oxygen Saturation ABG 95.1 % (95.0-100.0); Oxyhemoglobin 93.7 % THb (90.0-100.0); PCO2 ABG 45.5 mmHg (35.0-45.0); PO2 ABG 72.7 mmHg (80.0-100.0); PO2 FiO2 Ratio Arterial Blood 1.82 %; Reduced Hemoglobin 5.8 %THb (0-5.0); Total Hemoglobin 13.7 g/dL (12.0-18.0); pH ABG 7.447 (7.350-7.450)
[2020-02-29 04:46] LABS: Device VENTILATOR; Modified Allen's Test Unable to perform; Site Drawn RIGHT RADIAL
[2020-02-29 04:47] LABS: Arterial Blood Gas PEEP 12 cmH2O; Arterial Blood Gas Tidal Volume 400 ml; Arterial Blood Gas Vent Mode CMV; Arterial Blood Gas Ventilator rate 20 /MIN
[2020-02-29 04:49] LABS: Hematocrit 33.1 % (42.0-52.0); Hemoglobin 11.3 g/dL (14.0-18.0); Immature Platelet Fraction Pct 8.9 % (0.9-11.2); Mean Corpuscular HGB Conc 34.1 g/dl (32-36); Mean Corpuscular Hemoglobin 33.3 pg (26-34); Mean Corpuscular Volume 97.6 fl (80-100); Mean Platelet Volume 12.1 fl (7.4-10.4); Platelet Count Result 113 k/mm3 (150-375); Red Blood Count 3.39 M/mm3 (4.6-6.20); White Blood Count 7.3 K/mm3 (4.5-10.0)
[2020-02-29 05:19] LABS: Alanine Aminotransferase 81 U/L (4-50); Albumin Level 3.2 g/dL (3.5-5.1); Alkaline Phosphatase 50 U/L (38-126); Anion Gap 5 mmol/L (8-16); Aspartate Amino Transferase 282 U/L (17-59); Bilirubin,Total 1.2 mg/dL (0.2-1.3); Blood Urea Nitrogen 23 mg/dL (9-20); Calcium 7.7 mg/dL (8.4-10.2); Carbon Dioxide 36 mmol/L (22-30); Chloride 95 mmol/L (98-107); Estimated CRCL calculation 85 ml/min; Estimated Glomerular Filt Rate > 60; Glucose 125 mg/dL (75-110); Magnesium 1.8 mg/dL (1.6-2.3); Phosphorus 3.7 mg/dL (2.5-4.5); Potassium 3.2 mmol/L (3.4-5.0); Sodium 136 mmol/L (137-145)
[2020-02-29] MEDS: POTASSIUM CHLORIDE 20 MEQ PACKET (FOR LIQUID) 40 MEQ FEED TUBE ×2 (05:54→08:02)
[2020-02-29] MEDS: AMIODARONE 360 MG/D5W 200 ML 360 MG/200 ML BAG 16.67 MG IV CONT (08:11)
[2020-02-29] MEDS: DORNASE ALFA INH SOLN 1 MG/ML 2.5 ML AMP 2.5 MG INHALATION (09:00)
[2020-02-29] MEDS: ASPIRIN 81 MG CHEWABLE TABLET PO (09:03)
[2020-02-29] MEDS: ENOXAPARIN 40 MG/0.4 ML SYRINGE SUB-Q (09:03)
[2020-02-29] MEDS: PANTOPRAZOLE SODIUM IV 40 MG VIAL IV PUSH (09:04)
[2020-02-29] MEDS: METOPROLOL TARTRATE 25 MG TABLET FEED TUBE ×2 (09:04→19:38)
[2020-02-29] MEDS: levETIRAcetam ORAL SOL 500 MG/5 ML UDC FEED TUBE ×2 (09:04→19:38)
[2020-02-29] MEDS: ROSUVASTATIN 10 MG TABLET 20 MG FEED TUBE (09:10)
--- NOTE | 2020-02-29 09:49 | PM.PNCARD ---
Progress Note: A&P Additional Plan 59-year-old man with: Acute anterior wall myocardial infarction late presentation after he suffered ventricular fibrillation arrest at home. He presented to the hospital about 13 hours into his event. Unfortunately aggressive attempt at PCI to his LAD was unsuccessful. Fortunately he does not have any left main circumflex or right coronary disease of significance. It is very good news that he is responsive to commands yesterday and this morning. I will not advanced any of his medications at this point since he has marginal blood pressure. Prognosis is still guarded but better than it was a couple of days ago. When he is off the ventilator MARU-inhibitor or possibly Entresto will have to be titrated on board. Chris Alvares MD [facility] Subjective Date/time seen: 02/29/20 09:49 Interval history: 59-year-old patient with: Large anterior wall myocardial infarction which presented very late in his course 12-13 hours into the event and unsuccessful attempt at PCI of the occluded LAD. Patient had VFib arrest at home prior to the hospitalization and another VFib arrest in the ICU following his procedure. 02/29/2020: Patient is still on ventilator support in the ICU and sedated. When he is awakened he is able to follow commands which is very encouraging. Equally encouraging is that his renal function is actually improving with decline in creatinine today. He is remaining on intravenous amiodarone, maintaining sinus rhythm and also is receiving metoprolol through his NG tube. Exam Narrative: Exam Narrative: Well-developed well-nourished black male on the ventilator in the ICU currently sedated. Const: Other: Intubated 59-year-old black male ICU. HENMT: Mouth: Yes moist mucous membranes Eyes: General: appearance normal, both eyes and all related structures Sclera: sclerae normal Neck: Neck: supple and no JVD Thyroid: thyroid normal Other: Carotid upstrokes are normal there are no bruits audible Resp: Effort & Inspection: normal respiratory effort Auscultation: clear to auscultation bilaterally Other: Breath sounds are essentially clear anteriorly Cardio: Rate: regular rate and tachycardic Rhythm: regular rhythm and abnormal rhythm irregularly irregular Heart sounds: no murmurs Other: PMI not palpable no audible murmur GI: Inspection: non-distended Auscultation: normal bowel sounds : Male General Exam: Yes normal external exam Skin: General skin exam: normal color and no rashes or lesions noted Neuro: Cognition (Neuro): abnormal cognition ( unconscious) Other: Patient on ventilator sedated in the ICU Extrem: General: normal to inspection and no edema Other: Very good distal perfusion Psych: Mental Status: mental status grossly abnormal Objective Data Vital Signs Vital Signs: Vital Signs - 24 hr 02/28/20 10:00 02/28/20 10:50 02/28/20 12:00 Temperature 37.9 C H Pulse Rate 100 93 96 Respiratory Rate 19 24 H Blood Pressure 86/57 L 95/61 L Pulse Oximetry 99 98 95 02/28/20 14:00 02/28/20 14:15 02/28/20 14:59 Temperature Pulse Rate 92 91 94 Respiratory Rate 24 H 20 Blood Pressure 96/65 L Pulse Oximetry 97 98 02/28/20 15:06 02/28/20 15:59 02/28/20 16:00 Temperature 38.2 C H 38.2 C H Pulse Rate 97 93 Respiratory Rate 22 H 22 H Blood Pressure 99/78 L Pulse Oximetry 92 02/28/20 16:59 02/28/20 17:23 02/28/20 17:57 Temperature 38.1 C H Pulse Rate 108 H 102 H Respiratory Rate Blood Pressure Pulse Oximetry 95 02/28/20 18:00 02/28/20 19:27 02/28/20 19:49 Temperature 38.1 C H Pulse Rate 105 H 101 H 104 H Respiratory Rate 24 H 24 H Blood Pressure 107/65 105/65 Pulse Oximetry 96 97 02/28/20 19:59 02/28/20 20:00 02/28/20 20:01 Temperature 38.1 C H 38.1 C H Pulse Rate 101 H 102 H Respiratory Rate 22 H 17 Blood Pressure 108/66 Pulse Oximetry 98 02/28/20 20:03 02/28/20 20:12 02/28/20 20:36 [place]
--- NOTE | 2020-02-29 10:34 | ECG_ITS ---
Measurements Intervals [place] Rate: 87 P: TN: 0 QRS: 4 QRSD: 93 T: 36 QT: 335 QTc: 404 Interpretive Statements ATRIAL FIBRILLATION LOW QRS VOLTAGE- DIFFUSE LEADS CANNOT RULE OUT SEPTAL INFARCT, AGE INDETERMINATE ANTEROLATERAL ST ELEVATION MYOCARDIAL INFARCT- RECENT BASELINE ARTIFACT- V5 ABNORMAL ECG Electronically Signed On 02-29-2020 12:54:14 [employer] by James Holt D.O.
--- NOTE | 2020-02-29 11:34 | PCDIET ---
ICU Rounding Note: Patient tolerating Nepro at 35mL/hr which is advancing toward goal rate of 50mL/hr. Recommend goal rate of 40mL/hr while on current Propofol dose. Last recorded weight is 133.7kg which is increased from last review. Bowel Motility: No documented BM as of yet. Labs Reviewed: Hgb (11.3), Hct (33.1), Glu (125), BUN (23), K (3.2), Na (136), Alb (3.2) Meds Noted: Albuterol, Fentanyl, Atrovent, Lopressor, Levophed, Protonix, Zosyn, KCl, NS at 50mL/hr, Propofol (rate of 27.3mL/hr provides 720kcal per day) Additional Notes: Right groin incision. No documented pressure ulcers. Following daily in ICU rounds. Assessing/reassessing every 3 days.
--- NOTE | 2020-02-29 11:41 | WPDINTPN ---
Progress Note: A&P Assessment and Plan (1) Acute respiratory failure: Code(s): J96.00 - Acute respiratory failure, unspecified whether with hypoxia or hypercapnia Status: Acute Assessment and Plan: Acute Respiratory failure secondary to cardiac arrest, pulmonary edema, questionable aspiration Continue full mechanical ventilation support to prevent hypoxemia/hypercarbia and end organ damage. ABG and PCXR reviewed vent adjusted Peep decreased to 10, wean FiO2 to maintain O2 sats > 92% Low tidal volume ventilation strategy to prevent volutrauma With small dose of Lasix for pulmonary edema (2) Aspiration pneumonia: Code(s): J69.0 - Pneumonitis due to inhalation of food and vomit Status: Acute Assessment and Plan: Continue empiric Zosyn (3) ST elevation (STEMI) myocardial infarction: Qualifiers: Involved coronary artery: left main coronary artery Qualified Code(s): I21.01 - ST elevation (STEMI) myocardial infarction involving left main coronary artery Code(s): I21.3 - ST elevation (STEMI) myocardial infarction of unspecified site Status: Acute Assessment and Plan: Patient with acute anterolateral STEMI and VFib arrest. S/post failed PCI of complete occlusion of LAD Continue aspirin -discussed with Cardiology, holding beta-blockers as blood pressures are low Echocardiogram reviewed Cardiology following Further definitive management for cardiology (4) Cardiac arrest: Code(s): I46.9 - Cardiac arrest, cause unspecified Status: Acute Assessment and Plan: Resuscitated from VFib arrest requiring 2 shocks. Completed therapeutic hypothermia protocol Amiodarone for VFib for cardiology Currently in NSR (5) Essential (primary) hypertension: Code(s): I10 - Essential (primary) hypertension Status: Acute Assessment and Plan: Beta-chaim as blood pressure allows (6) Hyperlipidemia: Code(s): E78.5 - Hyperlipidemia, unspecified Status: Acute Assessment and Plan: Hold statin due to elevated liver enzymes at this time (7) Autoimmune hepatitis: Code(s): K75.4 - Autoimmune hepatitis Status: Acute Assessment and Plan: Patient has history of autoimmune hepatitis and is on azathioprine Currently LFTs are elevated due to shock liver but are improving Will continue to monitor levels and resume azathioprine once number stabilize (8) Atrial fibrillation, new onset: Code(s): I48.91 - Unspecified atrial fibrillation Status: Acute Assessment and Plan: Currently in normal sinus rhythm and on amiodarone infusion (9) Anoxic brain injury: Code(s): G93.1 - Anoxic brain damage, not elsewhere classified Status: Acute Assessment and Plan: Patient showing signs of anoxic injury once arrival to ICU Patient started on therapeutic hypothermia protocol and has completed now and rewarmed Today after sedation holiday patient followed commands Currently sedated with propofol and fentanyl will switch to Precedex Continue Keppra Head CT was done on 02/26 and was unremarkable for any acute change (10) Seizures: Code(s): R56.9 - Unspecified convulsions Status: Acute Assessment and Plan: I was told the nurse the patient had couple of episodes where patient appeared to be having seizures although this could be myoclonic jerks Patient currently sedated with propofol and did receive couple of doses off Ativan on 1st night Continue Keppra empirically for now Will get EEG if there is any recurrence (11) Pulmonary edema: Code(s): J81.1 - Chronic pulmonary edema Status: Acute Assessment and Plan: Improving. Continue Lasix (12) Ischemic cardiomyopathy: Code(s): I25.5 - Ischemic cardiomyopathy Status: Acute Assessment and Plan: ECHO Showed Left ventricular chamber dimension is mildly enlarged. 2. Left ventricular systolic fun
[2020-02-29] MEDS: FUROSEMIDE INJ 40 MG/4 ML VIAL 20 MG IV PUSH (12:36)
--- NOTE | 2020-02-29 12:48 | PC.NURSE ---
CONVERTED TO SR AT 1233. CONTINUES ON AMIODARONE 1 MG/MIN.
[2020-02-29] MEDS: LIDOCAINE HCL 1% PF INJ 5 ML VIAL INFILTRATE (14:00)
--- NOTE | 2020-02-29 14:37 | PM.IMPN ---
Progress Note: A&P Assessment and Plan (1) ST elevation myocardial infarction (STEMI) of anterior wall: Code(s): I21.09 - ST elevation (STEMI) myocardial infarction involving other coronary artery of anterior wall Status: Acute Assessment and Plan: Patient with acute anterolateral STEMI and VFib arrest. S/post failed PCI of complete occlusion of LAD Continue aspirin and coreg Cardiology following (2) Cardiac arrest with ventricular fibrillation: Code(s): I46.9 - Cardiac arrest, cause unspecified; I49.01 - Ventricular fibrillation Status: Acute Assessment and Plan: On Vent (3) Hypokalemia: Code(s): E87.6 - Hypokalemia Status: Resolved Assessment and Plan: Resolved (4) Autoimmune hepatitis: Code(s): K75.4 - Autoimmune hepatitis Status: Acute Assessment and Plan: on azithrotripone (5) Essential hypertension: Code(s): I10 - Essential (primary) hypertension Status: Inactive (6) Dyslipidemia: Code(s): E78.5 - Hyperlipidemia, unspecified Status: Inactive (7) Gastroesophageal reflux disease: Code(s): K21.9 - Gastro-esophageal reflux disease without esophagitis Status: Inactive (8) Atrial fibrillation, new onset: Code(s): I48.91 - Unspecified atrial fibrillation Status: Acute Assessment and Plan: sseeeen by cardiology on amiodarone (9) Anoxic brain injury: Code(s): G93.1 - Anoxic brain damage, not elsewhere classified Status: Acute Assessment and Plan: since ICU admission (10) Seizures: Code(s): R56.9 - Unspecified convulsions Status: Acute Assessment and Plan: on keppra, myoclonic jerks noticed during cardiac arrest. (11) Aspiration pneumonia: Code(s): J69.0 - Pneumonitis due to inhalation of food and vomit Status: Acute Assessment and Plan: pt is on vent, pt is on IV zosyn Subjective Date/time seen: 02/29/20 14:37 Interval history: Linda is a 59 year old male Who was admitted for a VFib arrest and acute anterior [place]. The patient has a history of hypertension and hyperlipidemia but no prior history of heart disease. On ventilator presently, vent management by ICU. Very ill pt STEMI, VF arrest, anoxic brain injury, aspiration pneumonia, AF, autoimmune hepatitis, seizures, ischemic cardiomyopathy, pulmonary edema, MARCY. See by cardiology and ICU MD. Review of Systems Review of Systems: ROS unobtainable: Yes unobtainable due to endotracheal tube Exam Narrative: Exam Narrative: General: Acutely ill-appearing male sedated and intubated. Stable on ventilator Objective Data Vital Signs Vital Signs: Vital Signs - 24 hr 02/28/20 14:59 02/28/20 15:06 02/28/20 15:59 Temperature 38.2 C H Pulse Rate 94 97 Respiratory Rate 20 22 H Blood Pressure Pulse Oximetry 02/28/20 16:00 02/28/20 16:59 02/28/20 17:23 Temperature 38.2 C H 38.1 C H Pulse Rate 93 108 H Respiratory Rate 22 H Blood Pressure 99/78 L Pulse Oximetry 92 95 02/28/20 17:57 02/28/20 18:00 02/28/20 19:27 Temperature 38.1 C H Pulse Rate 102 H 105 H 101 H Respiratory Rate 24 H Blood Pressure 107/65 105/65 Pulse Oximetry 96 02/28/20 19:49 02/28/20 19:59 02/28/20 20:00 Temperature 38.1 C H Pulse Rate 104 H 101 H 102 H Respiratory Rate 24 H 22 H 17 Blood Pressure 108/66 Pulse Oximetry 97 98 02/28/20 20:01 02/28/20 20:03 02/28/20 20:12 Temperature 38.1 C H Pulse Rate 110 H 106 H Respiratory Rate 22 H Blood Pressure Pulse Oximetry 02/28/20 20:36 02/28/20 20:56 02/28/20 22:00 Temperature Pulse Rate 93 93 86 Respiratory Rate 22 H 22 H 22 H Blood Pressure 97/72 L Pulse Oximetry 97 02/28/20 23:01 02/28/20 23:13 02/28/20 23:44 Temperature Pulse Rate 83 77 79 Respiratory Rate 25 H 22 H Blood Pressure 100/65 Pulse Oximetry 99 98 02/29/20 00:00 02/29/20 00:28 1
[2020-02-29] MEDS: NEOMYCIN/POLYMYXIN/BACITRACIN OINTMENT PACKET 1 PACKET (16:51)
[2020-02-29] MEDS: ACETAMINOPHEN ELIXIR 325 MG/10.15 ML UDC 650 MG PO (19:36)
[2020-02-29] MEDS: AMIODARONE 360 MG/D5W 200 ML 360 MG/200 ML BAG 33.33 MG IV CONT (20:47)
[2020-02-29] MEDS: CENTRAL LINE FLUSH 10 ML IV PUSH (20:47)
[2020-02-29] MEDS: PROPOFOL IV EMULSION 100 ML 31.2 MG IV CONT (21:10)
--- NOTE | 2020-02-29 23:15 | PC.NURSE ---
Patient vomited. OG placed to LIS. Zofran 4mg given. Keep tube feedings up to date. Dr. Gonsalves updated.
[2020-02-29] MEDS: ONDANSETRON INJ 4 MG/2 ML VIAL IV PUSH (23:25)
[2020-03-01] VITALS (28 sets, daily range): BP systolic 101–116; BP diastolic 66–87; PULSE 76–103; RESP 18–29; TEMP 36.7–37.6; O2SAT 95–100
[2020-03-01] MEDS: PROPOFOL IV EMULSION 100 ML 31.2 MG IV CONT (00:18)
[2020-03-01] MEDS: SODIUM CHLORIDE 0.9% IV 1,000 ML 50 ML IV CONT (00:19)
[2020-03-01 00:29] LABS: Glucose Point of Care 135 (65-105)
[2020-03-01] MEDS: IPRATROPIUM BR 0.02% INH SOLN 0.5 MG/2.5 ML VIAL INHALATION ×2 (01:41→09:22)
[2020-03-01] MEDS: ALBUTEROL SULFATE NEB 2.5 MG/0.5 ML INH INHALATION ×2 (01:41→09:22)
[2020-03-01] MEDS: AMIODARONE 360 MG/D5W 200 ML 360 MG/200 ML BAG 33.33 MG IV CONT ×2 (02:40→08:52)
[2020-03-01] MEDS: PROPOFOL IV EMULSION 100 ML 27.3 MG IV CONT (02:41)
[2020-03-01 04:12] LABS: Hematocrit 31.1 % (42.0-52.0); Hemoglobin 10.6 g/dL (14.0-18.0); Immature Platelet Fraction Pct 5.9 % (0.9-11.2); Mean Corpuscular HGB Conc 34.1 g/dl (32-36); Mean Corpuscular Volume 96.9 fl (80-100); Mean Platelet Volume 11.2 fl (7.4-10.4); Platelet Count Result 118 k/mm3 (150-375); Red Blood Count 3.21 M/mm3 (4.6-6.20); White Blood Count 6.6 K/mm3 (4.5-10.0)
[2020-03-01 04:26] LABS: Alanine Aminotransferase 89 U/L (4-50); Albumin Level 3.2 g/dL (3.5-5.1); Alkaline Phosphatase 60 U/L (38-126); Anion Gap 1 mmol/L (8-16); Aspartate Amino Transferase 294 U/L (17-59); Blood Urea Nitrogen 19 mg/dL (9-20); Carbon Dioxide 36 mmol/L (22-30); Chloride 100 mmol/L (98-107); Estimated CRCL calculation 91 ml/min; Estimated Glomerular Filt Rate > 60; Glucose 130 mg/dL (75-110); Magnesium 2.1 mg/dL (1.6-2.3); Phosphorus 4.1 mg/dL (2.5-4.5); Potassium 3.7 mmol/L (3.4-5.0); Sodium 137 mmol/L (137-145)
[2020-03-01 04:54] LABS: Alveolar/Arterial O2 Gradient 146.6 mmHg; Base Excess ABG 3.9 mEq/l (+/-2.0); Carboxyhemoglobin 0.3 % THb (0-2.0); Fractional Inspired Oxygen 40 %; HCO3 ABG 28.5 mEq/l (22.0-26.0); Methemoglobin ABG 0.2 %THb (0-1.5); Oxygen Content ABG 16.1 %vol (16.0-22.0); Oxyhemoglobin 95.6 % THb (90.0-100.0); PCO2 ABG 43.1 mmHg (35.0-45.0); PO2 FiO2 Ratio Arterial Blood 2.22 %; Reduced Hemoglobin 3.9 %THb (0-5.0); Total Hemoglobin 11.9 g/dL (12.0-18.0); pH ABG 7.438 (7.350-7.450)
[2020-03-01 04:55] LABS: Device VENTILATOR; Modified Allen's Test Unable to perform; Site Drawn LEFT RADIAL
[2020-03-01 04:56] LABS: Arterial Blood Gas PEEP 10 cmH2O; Arterial Blood Gas Tidal Volume 400 ml; Arterial Blood Gas Vent Mode CMV; Arterial Blood Gas Ventilator rate 20 /MIN
[2020-03-01] MEDS: CENTRAL LINE FLUSH 10 ML IV PUSH (05:37)
[2020-03-01] MEDS: PROPOFOL IV EMULSION 100 ML 15.6 MG IV CONT (06:43)
[2020-03-01] MEDS: ASPIRIN 81 MG CHEWABLE TABLET PO (08:52)
[2020-03-01] MEDS: ENOXAPARIN 40 MG/0.4 ML SYRINGE SUB-Q (08:53)
[2020-03-01] MEDS: carvediloL 3.125 MG TABLET PO (08:53)
[2020-03-01] MEDS: METOPROLOL TARTRATE 25 MG TABLET FEED TUBE (08:54)
[2020-03-01] MEDS: PANTOPRAZOLE SODIUM IV 40 MG VIAL IV PUSH (08:54)
[2020-03-01] MEDS: ROSUVASTATIN 10 MG TABLET 20 MG FEED TUBE (08:54)
[2020-03-01] MEDS: levETIRAcetam ORAL SOL 500 MG/5 ML UDC FEED TUBE (08:54)
--- NOTE | 2020-03-01 09:06 | WPDINTPN ---
Progress Note: A&P Assessment and Plan (1) Acute respiratory failure: Code(s): J96.00 - Acute respiratory failure, unspecified whether with hypoxia or hypercapnia Status: Acute Assessment and Plan: Acute Respiratory failure secondary to cardiac arrest, pulmonary edema, questionable aspiration Continue full mechanical ventilation support to prevent hypoxemia/hypercarbia and end organ damage. ABG and PCXR reviewed vent adjusted Peep decreased to 8, wean FiO2 to maintain O2 sats > 92% Low tidal volume ventilation strategy to prevent volutrauma Will give a small dose of Lasix (2) Aspiration pneumonia: Code(s): J69.0 - Pneumonitis due to inhalation of food and vomit Status: Acute Assessment and Plan: Continue empiric Zosyn (initiated on 02/26/2020) (3) ST elevation (STEMI) myocardial infarction: Qualifiers: Involved coronary artery: left main coronary artery Qualified Code(s): I21.01 - ST elevation (STEMI) myocardial infarction involving left main coronary artery Code(s): I21.3 - ST elevation (STEMI) myocardial infarction of unspecified site Status: Acute Assessment and Plan: Patient with acute anterolateral STEMI and VFib arrest. S/post failed PCI of complete occlusion of LAD Continue aspirin -start low-dose Coreg as patient is off Levophed for > 48 hrs Echocardiogram reviewed Cardiology following Further definitive management for cardiology (4) Cardiac arrest: Code(s): I46.9 - Cardiac arrest, cause unspecified Status: Acute Assessment and Plan: Resuscitated from VFib arrest requiring 2 shocks. Completed therapeutic hypothermia protocol Amiodarone for VFib for cardiology Currently in NSR (5) Hyperlipidemia: Code(s): E78.5 - Hyperlipidemia, unspecified Status: Acute Assessment and Plan: Hold statin due to elevated liver enzymes at this time (6) Autoimmune hepatitis: Code(s): K75.4 - Autoimmune hepatitis Status: Acute Assessment and Plan: Patient has history of autoimmune hepatitis and is on azathioprine Currently LFTs are elevated due to shock liver but are improving Will continue to monitor levels and resume azathioprine once number stabilize (7) Atrial fibrillation, new onset: Code(s): I48.91 - Unspecified atrial fibrillation Status: Acute Assessment and Plan: Rate controlled AFib, on amiodarone infusion (8) Anoxic brain injury: Code(s): G93.1 - Anoxic brain damage, not elsewhere classified Status: Acute Assessment and Plan: Patient showing signs of anoxic injury once arrival to ICU Patient started on therapeutic hypothermia protocol and has completed now and rewarmed Today after sedation holiday patient followed commands Will switch sedation to Precedex Continue Keppra Head CT was done on 02/26 and was unremarkable for any acute change (9) Seizures: Code(s): R56.9 - Unspecified convulsions Status: Acute Assessment and Plan: Patient did have some seizures which could have been myoclonic jerks post cardiac arrest Patient currently sedated with propofol and fentanyl, will switch to Precedex Continue Keppra empirically for now Will get EEG if there is any recurrence (10) Pulmonary edema: Code(s): J81.1 - Chronic pulmonary edema Status: Acute Assessment and Plan: Improving. Continue Lasix (11) Ischemic cardiomyopathy: Code(s): I25.5 - Ischemic cardiomyopathy Status: Acute Assessment and Plan: ECHO Showed Left ventricular chamber dimension is mildly enlarged. 2. Left ventricular systolic function is severely reduced, estimated at 20-25%. 3. The anterior wall and anteroseptal segments are akinetic. 4. Definity contrast injected to improve visualization. 5. Aortic valve is mildly sclerotic but exhibits good leaflet separation. 6. Wall motion abnormalities compatible with an expected fro
[2020-03-01] MEDS: FUROSEMIDE INJ 40 MG/4 ML VIAL 20 MG IV PUSH (09:16)
--- NOTE | 2020-03-01 10:23 | PM.PNCARD ---
Progress Note: A&P Assessment and Plan (1) ST elevation (STEMI) myocardial infarction: Qualifiers: Involved coronary artery: left main coronary artery Qualified Code(s): I21.01 - ST elevation (STEMI) myocardial infarction involving left main coronary artery Code(s): I21.3 - ST elevation (STEMI) myocardial infarction of unspecified site Status: Acute Assessment and Plan: Patient with acute anterolateral STEMI and VFib arrest. willreduce his amiodarone down to 0.5 mg. He is on both metoprolol and carvedilol for unknown reasons. Will stop his metoprolol. (2) Cardiac arrest: Code(s): I46.9 - Cardiac arrest, cause unspecified Status: Acute Assessment and Plan: Resuscitated from VFib arrest requiring 2 shocks. (3) Essential (primary) hypertension: Code(s): I10 - Essential (primary) hypertension Status: Acute Assessment and Plan: (4) Hyperlipidemia: Code(s): E78.5 - Hyperlipidemia, unspecified Status: Acute Assessment and Plan: (5) Autoimmune hepatitis: Code(s): K75.4 - Autoimmune hepatitis Status: Acute Assessment and Plan: (6) Ischemic cardiomyopathy: Code(s): I25.5 - Ischemic cardiomyopathy Status: Acute Assessment and Plan: As above Subjective Date/time seen: 03/01/20 10:23 Interval history: 59-year-old patient with: Large anterior wall myocardial infarction which presented very late in his course 12-13 hours into the event and unsuccessful attempt at PCI of the occluded LAD. Patient had VFib arrest at home prior to the hospitalization and another VFib arrest in the ICU following his procedure. 03/01/2020: Patient is still on ventilator support in the ICU and sedated. frequent PACs. Awakens on commands with reduction of sedation Review of Systems Review of Systems: ROS unobtainable: Yes unobtainable due to endotracheal tube, unobtainable due to medical condition and unobtainable due to mental status Exam Narrative: Exam Narrative: Well-developed well-nourished black male on the ventilator in the ICU currently sedated. Const: Other: Intubated 59-year-old black male ICU. HENMT: Mouth: Yes moist mucous membranes Eyes: General: appearance normal, both eyes and all related structures Sclera: sclerae normal Neck: Neck: supple and no JVD Thyroid: thyroid normal Other: Carotid upstrokes are normal there are no bruits audible Resp: Effort & Inspection: normal respiratory effort Auscultation: clear to auscultation bilaterally Other: Breath sounds are essentially clear anteriorly Cardio: Rate: regular rate and tachycardic Rhythm: regular rhythm and abnormal rhythm irregularly irregular Heart sounds: no murmurs Other: PMI not palpable no audible murmur GI: Inspection: non-distended Auscultation: normal bowel sounds : Male General Exam: Yes normal external exam Skin: General skin exam: normal color and no rashes or lesions noted Neuro: Cognition (Neuro): abnormal cognition ( unconscious) Other: Patient on ventilator sedated in the ICU Extrem: General: normal to inspection and edema Other: Very good distal perfusion Psych: Mental Status: mental status grossly abnormal Objective Data Vital Signs Vital Signs: Vital Signs - 24 hr 02/29/20 10:30 02/29/20 11:13 02/29/20 11:51 Temperature Pulse Rate 144 H 99 121 H Respiratory Rate 37 H Blood Pressure 98/72 L Pulse Oximetry 97 02/29/20 12:00 02/29/20 12:30 02/29/20 12:33 Temperature 37.8 C H Pulse Rate 110 H 112 H 85 Respiratory Rate 48 H 23 H Blood Pressure 92/71 L Pulse Oximetry 98 02/29/20 14:00 02/29/20 14:53 02/29/20 14:58 Temperature Pulse Rate 85 87 90 Respiratory Rate 25 H 23 H 23 H Bl
--- NOTE | 2020-03-01 10:44 | PCDIET ---
Nutrition Follow-Up Complete: Nutrition Diagnosis: Inadequate oral intake related to oral intubation as evidenced by NPO status. Nutrition Goal: Patient to meet estimated nutritional needs. Goal not met. Patient previously tolerating tube feedings, but were held overnight due to emesis. MD ordered KUB and may restart feedings at lower rate later today. Last recorded weight is 131.9 kg which is decreased from last review, despite +I/O. Bowel Motility: No documented BM - discussed with MD during rounds. Labs Reviewed: Hgb (10.6), Hct (31.1), Glu (130), Alb (3.2), Zenobia Ca (8.64) Meds Noted: Albuterol, Coreg, Levophed, Zofran, Crestor, NS at 50mL/hr, Fentanyl, Atrovent, Protonix, Lasix, Lopressor, Zosyn Additional Notes: No documented skin breakdown. Nutrition Monitoring and Evaluation: Follow up every Saturday/Saturday.
[2020-03-01 12:47] LABS: Glucose Point of Care 145 (65-105)
--- NOTE | 2020-03-01 13:15 | PM.TDS ---
Transfer Discharge Sum: Prov Provider Date of admission: 02/25/20 14:50 Primary care physician: Dudley Kapoor DO Admitting clinician: Chris Alvares MD Consults: 02/29/20 Consult to Physician Routine Comment: Consulting Provider: Naseem Dai Reason for consultation: medical management Has provider been notified: Yes Consult to Physician Routine Comment: Consulting Provider: Onel Jose Reason for consultation: Belt Notcher Has provider been notified: Yes PARTIAL TRANSFER SUMMARY AND CONSULT NOTE DS: Admitting Diagnosis Admitting Diagnosis Admitting Diagnosis: CARDIAC ARREST DS: Discharge Diagnosis Discharge Diagnosis (1) ST elevation myocardial infarction (STEMI) of anterior wall: Code(s): I21.09 - ST elevation (STEMI) myocardial infarction involving other coronary artery of anterior wall Status: Acute Assessment and Plan: Patient with acute anterolateral STEMI and VFib arrest. S/post failed PCI of complete occlusion of LAD Continue aspirin and coreg Cardiology following (2) Cardiac arrest with ventricular fibrillation: Code(s): I46.9 - Cardiac arrest, cause unspecified; I49.01 - Ventricular fibrillation Status: Acute Assessment and Plan: On Vent (3) Hypokalemia: Code(s): E87.6 - Hypokalemia Status: Resolved Assessment and Plan: Resolved (4) Autoimmune hepatitis: Code(s): K75.4 - Autoimmune hepatitis Status: Acute Assessment and Plan: on azithroprine (5) Essential hypertension: Code(s): I10 - Essential (primary) hypertension Status: Inactive (6) Dyslipidemia: Code(s): E78.5 - Hyperlipidemia, unspecified Status: Inactive (7) Gastroesophageal reflux disease: Code(s): K21.9 - Gastro-esophageal reflux disease without esophagitis Status: Inactive (8) Atrial fibrillation, new onset: Code(s): I48.91 - Unspecified atrial fibrillation Status: Acute Assessment and Plan: sseeeen by cardiology on amiodarone (9) Anoxic brain injury: Code(s): G93.1 - Anoxic brain damage, not elsewhere classified Status: Acute Assessment and Plan: since ICU admission (10) Seizures: Code(s): R56.9 - Unspecified convulsions Status: Acute Assessment and Plan: on keppra, myoclonic jerks noticed during cardiac arrest. (11) Aspiration pneumonia: Code(s): J69.0 - Pneumonitis due to inhalation of food and vomit Status: Acute Assessment and Plan: pt is on vent, pt is on IV zosyn Transfer Discharge Sum: Med Medications Active and Home Medications: Home Medications azathioprine 50 mg tablet 50 mg PO DAILY 01/29/19 [History Confirmed 02/28/20] fluticasone propionate 50 mcg/actuation nasal spray,suspension 2 spray NASAL DAILY 01/29/19 [History Confirmed 02/28/20] triamcinolone acetonide 0.1 % topical cream 1 applic TOPICAL BID #80 gm 04/08/19 [Rx Confirmed 02/28/20] pantoprazole 40 mg tablet,delayed release 40 mg PO QAM #30 tablet 11/24/19 [Rx Confirmed 02/28/20] hydrocodone 10 mg-acetaminophen 325 mg tablet 1 tablet PO Q8H PRN #60 tablet 12/29/19 [Rx Confirmed 02/28/20] sildenafil 100 mg tablet See Rx Instructions PO DAILY PRN #15 tablet 12/29/19 [Rx Confirmed 02/28/20] amlodipine 10 mg tablet 10 mg PO DAILY #90 tablet 01/04/20 [Rx Confirmed 02/26/20] omega-3 fatty acids 1,000 mg capsule 1,000 mg PO DAILY #90 cap 01/04/20 [Rx Confirmed 02/28/20] pravastatin 40 mg tablet 20 mg PO DAILY #90 tablet 01/04/20 [Rx Confirmed 02/28/20] Active Medications Acetaminophen (Acetaminophen Elixir 325 Mg/10.15 Ml Udc) 650 mg PO Q4H PRN PRN Reason: Mild Pain (1-3) or Fever Last Admin: 02/29/20 19:36 Dose: 650 mg Documented by: Albuterol (Albuterol Sulfate Neb 2.5 Mg/0.5 Ml Inh) 2.5 mg INHALATION Q6HRT ELMO Last Admin: 03/01/20 09:22 Dose: 2.5 mg Documented by: Aspirin (Aspirin 81 Mg Chewable Tablet) 81 mg P
--- NOTE | 2020-03-01 13:44 | PC.NURSE ---
1300- GAVE REPORT TO RANDY WALTERS AT [facility]. PT BEING TRANSPORTED BY [facility]. UPDATED ABOUT TRANSFER AND GIVEN [facility] ICU NUMBER AND RN NAME. [id number]- PT REPORTED OFF TO AND DISCHARGED TO [facility], PT STABLE UPON LEAVING ICU.
--- NOTE | 2020-03-02 15:31 | PM.TDS ---
Transfer Discharge Sum: Prov Provider Date of admission: 02/25/20 14:50 Primary care physician: Dudley Kapoor DO Admitting clinician: Chris Alvares MD Consults: 02/29/20 Consult to Physician Routine Comment: Consulting Provider: Naseem Dai Reason for consultation: medical management Has provider been notified: Yes Consult to Physician Routine Comment: Consulting Provider: Onel Jose Reason for consultation: Java Architect Has provider been notified: Yes DS: Admitting Diagnosis Admitting Diagnosis Admitting Diagnosis: Cardiac arrest DS: Discharge Diagnosis Discharge Diagnosis (1) ST elevation (STEMI) myocardial infarction: Qualifiers: Involved coronary artery: left main coronary artery Qualified Code(s): I21.01 - ST elevation (STEMI) myocardial infarction involving left main coronary artery Code(s): I21.3 - ST elevation (STEMI) myocardial infarction of unspecified site Status: Acute Assessment and Plan: Admitted 02/25/2020 for acute anterolateral STEMI and VFib arrest. Had chest pain starting at 2:00 a.m. on the day of admission. Collapsed at home with VF arrest in the afternoon. Resuscitated. Initial rhythm was atrial fibrillation with acute anterior wall injury. Taken urgently to the cardiac catheterization lab by Dr. Alvares. Unable to open the LAD. Completed hypothermia protocol. Required pressors which were gradually weaned off. Cardiac medications were gradually added. Echocardiogram 02/26/2020 revealed severely reduced systolic function. EF 20-25%. Anterior wall and anterior septal segments were akinetic. Continue aspirin Amiodarone decreased to 0.5 milligram/minute. (2) Cardiac arrest: Code(s): I46.9 - Cardiac arrest, cause unspecified Status: Acute Assessment and Plan: Resuscitated from VFib arrest requiring 2 shocks. (3) Essential (primary) hypertension: Code(s): I10 - Essential (primary) hypertension Status: Acute Assessment and Plan: As above. (4) Hyperlipidemia: Code(s): E78.5 - Hyperlipidemia, unspecified Status: Acute Assessment and Plan: Statin on hold due to elevated LFTs most likely due to shock liver. (5) Autoimmune hepatitis: Code(s): K75.4 - Autoimmune hepatitis Status: Acute Assessment and Plan: History of autoimmune hepatitis. Was on azathioprine at home. (6) Ischemic cardiomyopathy: Code(s): I25.5 - Ischemic cardiomyopathy Status: Acute Assessment and Plan: Continue carvedilol. Transfer Discharge Sum: Med Medications Active and Home Medications: Home Medications azathioprine 50 mg tablet 50 mg PO DAILY 01/29/19 [History Confirmed 02/28/20] fluticasone propionate 50 mcg/actuation nasal spray,suspension 2 spray NASAL DAILY 01/29/19 [History Confirmed 02/28/20] triamcinolone acetonide 0.1 % topical cream 1 applic TOPICAL BID #80 gm 04/08/19 [Rx Confirmed 02/28/20] pantoprazole 40 mg tablet,delayed release 40 mg PO QAM #30 tablet 11/24/19 [Rx Confirmed 02/28/20] hydrocodone 10 mg-acetaminophen 325 mg tablet 1 tablet PO Q8H PRN #60 tablet 12/29/19 [Rx Confirmed 02/28/20] sildenafil 100 mg tablet See Rx Instructions PO DAILY PRN #15 tablet 12/29/19 [Rx Confirmed 02/28/20] amlodipine 10 mg tablet 10 mg PO DAILY #90 tablet 01/04/20 [Rx Confirmed 02/26/20] omega-3 fatty acids 1,000 mg capsule 1,000 mg PO DAILY #90 cap 01/04/20 [Rx Confirmed 02/28/20] pravastatin 40 mg tablet 20 mg PO DAILY #90 tablet 10/19/20 [Rx Confirmed 02/28/20] Active Medications Acetaminophen (Acetaminophen Elixir 325 Mg/10.15 Ml Ud
== END 2020-03-01 13:30 | disposition short-term general hospital (02) | DRG 246 ==
LOC: ANHED 14:47 → ANHICU 15:05
PROVIDERS: Internal Medicine; Physician Assistant; Admitting Provider Specialist; Emergency Provider Emergency Medicine; PCP Internal Medicine; Visit Provider Internal Medicine Cardiovascular Disease
PROC: 4A023N7 Measurement of Cardiac Sampling and Pressure, Left Heart, Percutaneous Approach (ICD-10-PCS; CPT 93452; principal; 2020-02-25 14:55)
PROC: 027035Z Dilation of Coronary Artery, One Artery with Two Drug-eluting Intraluminal Devices, Percutaneous Approach (ICD-10-PCS; 2020-02-25 14:55)
DX: I21.09 ST elevation (STEMI) myocardial infarction involving other coronary artery of anterior wall (principal); I49.01 Ventricular fibrillation; J69.0 Pneumonitis due to inhalation of food and vomit; J96.00 Acute respiratory failure, unspecified whether with hypoxia or hypercapnia; G93.1 Anoxic brain damage, not elsewhere classified; N17.9 Acute kidney failure, unspecified; R57.9 Shock, unspecified; M62.82 Rhabdomyolysis; E87.2 Acidosis; I10 Essential (primary) hypertension; E78.5 Hyperlipidemia, unspecified; I48.91 Unspecified atrial fibrillation; K75.4 Autoimmune hepatitis; R56.9 Unspecified convulsions; E87.6 Hypokalemia
CPT/HCPCS: 36415; 36569; 36600; 70450; 71045; 74019; 80048; 80053; 80307; 82375; 82550; 82805; 83036; 83050; 83605; 83735; 84100; 84484; 85025; 85027; 85055; 85610; 85730; 87040; 87070; 87077; 87086; 87186; 87205; 93005; 93458; 94002; 94003; 94640; 99291; A9270; C1725; C1751; C1757; C1769; C1874; C1887; C1894; C8929; C9113; C9606; J0282; J0583; J1327; J1644; J1650; J1940; J2060; J2250; J2405; J2543; J2704; J3010; J3480; J7030; J7040; J7070; Q9957

== ENCOUNTER 2020-03-17 17:08 | Outpatient (CLI) | payer OTHER, SELFPAY ==
[2020-03-17 18:01] LABS: Prothrombin Time 23.5 Seconds (11.1-14.7)
== END 2020-03-17 17:09 | disposition home or self-care (01) ==
LOC: ANHLAB 17:11
PROVIDERS: PCP Internal Medicine; Visit Provider Internal Medicine Cardiovascular Disease
DX: I48.0 Paroxysmal atrial fibrillation (principal); Z79.01 Long term (current) use of anticoagulants
CPT/HCPCS: 36415; 85610

== ENCOUNTER 2020-04-25 14:06 | Outpatient (RCR) | payer OTHER, SELFPAY ==
[2020-03-09 13:07] LABS: INR 1.2; Prothrombin Time 16.2 Seconds (11.1-14.7)
[2020-03-21 14:41] LABS: INR 2.1; Prothrombin Time 24.5 Seconds (11.1-14.7)
[2020-04-25 15:22] LABS: INR 2.3; Prothrombin Time 25.7 Seconds (11.1-14.7)
== END 2020-06-07 23:59 | disposition home or self-care (01) ==
LOC: ANHLAB 14:06
PROVIDERS: PCP Internal Medicine
DX: I48.0 Paroxysmal atrial fibrillation (principal)
CPT/HCPCS: 36415; 85610

== ENCOUNTER 2020-05-31 08:29 | Outpatient (CLI) | payer OTHER, SELFPAY ==
[2020-05-31 09:21] LABS: Cholesterol 126 mg/dL (0-200); HDL Direct 26 mg/dL; Triglycerides 172 mg/dL (<150)
[2020-05-31 09:32] LABS: LDL Cholesterol Direct 55 mg/dL
== END 2020-05-31 08:30 | disposition home or self-care (01) ==
PROVIDERS: PCP Internal Medicine
DX: E78.5 Hyperlipidemia, unspecified (principal)
CPT/HCPCS: 36415; 80061

== ENCOUNTER 2021-01-02 15:46 | Outpatient (CLI) | payer OTHER, SELFPAY ==
[2021-01-02 16:19] LABS: Basophils Percent Auto 0.6 % (0.2-1.2); Eosinophils Absolute Auto 0.1 K/mm3 (0-0.3); Eosinophils Percent Auto 2.2 % (0-4.4); Hematocrit 42.7 % (42.0-52.0); Hemoglobin 14.7 g/dL (14.0-18.0); Immature Granulocyte Absolute 0.01 K/mm3 (0.00-0.031); Immature Granulocyte Percent A 0.3 % (0-0.5); Immature Platelet Fraction Pct 7.2 % (0.9-11.2); Lymphocytes Absolute Auto 1.41 K/mm3 (0.9-3.2); Lymphocytes Percent Auto 39.5 % (18.3-44.2); Mean Corpuscular HGB Conc 34.4 g/dl (32-36); Mean Corpuscular Hemoglobin 34.3 pg (26-34); Mean Corpuscular Volume 99.5 fl (80-100); Mean Platelet Volume 11.5 fl (7.4-10.4); Monocytes Absolute Auto 0.4 K/mm3 (0.1-0.6); Monocytes Percent Auto 11.2 % (2.6-8.5); Neutrophils Absolute Auto 1.7 K/mm3 (1.3-6.7); Neutrophils Percent Auto 46.2 % (45.5-73.1); Platelet Count Result 147 k/mm3 (150-375); Red Blood Count 4.29 M/mm3 (4.6-6.20); Red Cell Distribution Width 12.9 % (11.5-14.5); White Blood Count 3.6 K/mm3 (4.5-10.0)
[2021-01-02 16:32] LABS: Alanine Aminotransferase 20 U/L (4-50); Albumin Level 4.8 g/dL (3.5-5.1); Alkaline Phosphatase 41 U/L (38-126); Anion Gap 11 mmol/L (8-16); Aspartate Amino Transferase 33 U/L (17-59); Bilirubin,Total 0.6 mg/dL (0.2-1.3); Blood Urea Nitrogen 20 mg/dL (9-20); Calcium 9.1 mg/dL (8.4-10.2); Carbon Dioxide 20 mmol/L (22-30); Chloride 109 mmol/L (98-107); Estimated Glomerular Filt Rate > 60; Glucose 109 mg/dL (65-110); Potassium 4.5 mmol/L (3.4-5.0); Sodium 140 mmol/L (137-145)
[2021-01-02 16:39] LABS: NT Pro B Type Natriuretic Pept 1130 pg/mL (5-100)
== END 2021-01-02 15:47 | disposition home or self-care (01) ==
PROVIDERS: PCP Internal Medicine; Visit Provider Internal Medicine Cardiovascular Disease
DX: R42 Dizziness and giddiness (principal); R11.0 Nausea
CPT/HCPCS: 36415; 80053; 83880; 85025; 85055

== ENCOUNTER 2021-01-03 07:24 | Outpatient (CLI) | payer OTHER, SELFPAY ==
[2021-01-03 08:36] LABS: Alanine Aminotransferase 17 U/L (4-50); Albumin Level 4.3 g/dL (3.5-5.1); Alkaline Phosphatase 37 U/L (38-126); Anion Gap 8 mmol/L (8-16); Aspartate Amino Transferase 27 U/L (17-59); Bilirubin,Total 0.8 mg/dL (0.2-1.3); Blood Urea Nitrogen 19 mg/dL (9-20); Calcium 8.8 mg/dL (8.4-10.2); Carbon Dioxide 22 mmol/L (22-30); Chloride 108 mmol/L (98-107); Cholesterol 105 mg/dL (0-200); Estimated Glomerular Filt Rate > 60; Glucose 109 mg/dL (65-110); HDL Direct 28 mg/dL; Potassium 4.2 mmol/L (3.4-5.0); Sodium 138 mmol/L (137-145); Triglycerides 122 mg/dL (<150)
[2021-01-03 08:46] LABS: LDL Cholesterol Direct 49 mg/dL
[2021-01-03 09:01] LABS: Prostate Specific Antigen 0.7 ng/mL (< OR = 4.0)
== END 2021-01-03 07:25 | disposition home or self-care (01) ==
LOC: ANHLAB 07:26
PROVIDERS: PCP Internal Medicine; Visit Provider Nurse Practitioner
DX: E78.5 Hyperlipidemia, unspecified (principal); Z12.5 Encounter for screening for malignant neoplasm of prostate
CPT/HCPCS: 36415; 80053; 80061; 84153; G0103

== ENCOUNTER 2021-04-12 09:41 | Outpatient (CLI) | payer OTHER, SELFPAY ==
[2021-04-12 11:57] LABS: Alanine Aminotransferase 21 U/L (4-50); Albumin Level 4.4 g/dL (3.5-5.1); Alkaline Phosphatase 41 U/L (38-126); Anion Gap 11 mmol/L (8-16); Aspartate Amino Transferase 38 U/L (17-59); Bilirubin,Total 0.8 mg/dL (0.2-1.3); Blood Urea Nitrogen 17 mg/dL (9-20); Carbon Dioxide 21 mmol/L (22-30); Chloride 105 mmol/L (98-107); Estimated Glomerular Filt Rate > 60; Glucose 105 mg/dL (65-110); Potassium 4.1 mmol/L (3.4-5.0); Sodium 137 mmol/L (137-145)
[2021-04-12 12:03] LABS: NT Pro B Type Natriuretic Pept 405 pg/mL (5-100)
== END 2021-04-12 09:42 | disposition home or self-care (01) ==
PROVIDERS: PCP Internal Medicine; Visit Provider Internal Medicine Cardiovascular Disease
DX: E78.00 Pure hypercholesterolemia, unspecified (principal); I25.10 Atherosclerotic heart disease of native coronary artery without angina pectoris
CPT/HCPCS: 36415; 80053; 83880

== ENCOUNTER 2021-08-01 06:39 | Outpatient (CLI) | payer OTHER, SELFPAY ==
[2021-08-01 07:33] LABS: Alanine Aminotransferase 21 U/L (6-50); Albumin Level 4.1 g/dL (3.5-5.1); Alkaline Phosphatase 46 U/L (38-126); Anion Gap 7 mmol/L (8-16); Aspartate Amino Transferase 34 U/L (17-59); Blood Urea Nitrogen 13 mg/dL (9-20); Calcium 8.7 mg/dL (8.4-10.2); Carbon Dioxide 23 mmol/L (22-30); Chloride 108 mmol/L (98-107); Cholesterol 112 mg/dL (0-200); Estimated Glomerular Filt Rate > 60; Glucose 99 mg/dL (65-110); HDL Direct 30 mg/dL; Potassium 4.1 mmol/L (3.4-5.0); Sodium 138 mmol/L (137-145); Triglycerides 92 mg/dL (<150)
[2021-08-01 07:44] LABS: LDL Cholesterol Direct 52 mg/dL
== END 2021-08-01 06:40 | disposition home or self-care (01) ==
LOC: ANHLAB 06:40
PROVIDERS: PCP Internal Medicine; Visit Provider Internal Medicine
DX: E78.5 Hyperlipidemia, unspecified (principal)
CPT/HCPCS: 36415; 80053; 80061

== ENCOUNTER 2022-01-25 10:03 | Outpatient (CLI) | payer OTHER, SELFPAY ==
[2022-01-25 10:49] LABS: Alanine Aminotransferase 27 U/L (6-50); Albumin Level 4.8 g/dL (3.5-5.1); Alkaline Phosphatase 48 U/L (38-126); Anion Gap 10 mmol/L (8-16); Aspartate Amino Transferase 40 U/L (17-59); Bilirubin,Total 0.9 mg/dL (0.2-1.3); Blood Urea Nitrogen 17 mg/dL (9-20); Calcium 9.4 mg/dL (8.4-10.2); Carbon Dioxide 22 mmol/L (22-30); Chloride 106 mmol/L (98-107); Estimated Glomerular Filt Rate > 60; Glucose 100 mg/dL (65-110); Potassium 4.7 mmol/L (3.4-5.0); Sodium 138 mmol/L (137-145)
[2022-01-25 11:19] LABS: Prostate Specific Antigen 0.7 ng/mL (< OR = 4.0)
== END 2022-01-25 10:04 | disposition home or self-care (01) ==
LOC: ANHLAB 10:05
PROVIDERS: PCP Internal Medicine; Visit Provider Nurse Practitioner
DX: I10 Essential (primary) hypertension (principal); Z12.5 Encounter for screening for malignant neoplasm of prostate
CPT/HCPCS: 36415; 80053; 84153; G0103

== ENCOUNTER 2022-07-26 10:15 | Outpatient (CLI) | payer OTHER, SELFPAY ==
[2022-07-26 10:39] LABS: Alanine Aminotransferase 38 U/L (6-50); Albumin Level 4.4 g/dL (3.5-5.1); Alkaline Phosphatase 53 U/L (38-126); Anion Gap 8 mmol/L (8-16); Aspartate Amino Transferase 71 U/L (17-59); Bilirubin,Total 0.9 mg/dL (0.2-1.3); Blood Urea Nitrogen 14 mg/dL (9-20); Calcium 8.6 mg/dL (8.4-10.2); Carbon Dioxide 24 mmol/L (22-30); Chloride 109 mmol/L (98-107); Cholesterol 115 mg/dL (0-200); Estimated Glomerular Filt Rate > 60; Glucose 99 mg/dL (65-110); HDL Direct 29 mg/dL; Potassium 3.9 mmol/L (3.4-5.0); Sodium 141 mmol/L (137-145); Triglycerides 118 mg/dL (<150)
[2022-07-26 10:50] LABS: LDL Cholesterol Direct 57 mg/dL
== END 2022-07-26 10:16 | disposition home or self-care (01) ==
LOC: ANHLAB 10:17
PROVIDERS: PCP Internal Medicine; Visit Provider Nurse Practitioner
DX: E78.5 Hyperlipidemia, unspecified (principal)
CPT/HCPCS: 36415; 80053; 80061

== ENCOUNTER 2023-01-17 09:09 | Outpatient (CLI) | payer BC, MEDICARE, SELFPAY ==
[2023-01-17 13:09] LABS: Alanine Aminotransferase 24 U/L (6-50); Albumin Level 4.5 g/dL (3.5-5.1); Alkaline Phosphatase 40 U/L (38-126); Anion Gap 8 mmol/L (8-16); Aspartate Amino Transferase 34 U/L (17-59); Bilirubin,Total 0.9 mg/dL (0.2-1.3); Blood Urea Nitrogen 14 mg/dL (9-20); Calcium 9.3 mg/dL (8.4-10.2); Carbon Dioxide 22 mmol/L (22-30); Chloride 107 mmol/L (98-107); Cholesterol 133 mg/dL (0-200); Estimated Glomerular Filt Rate > 60; Glucose 103 mg/dL (65-110); HDL Direct 38 mg/dL; Potassium 4.2 mmol/L (3.4-5.0); Sodium 137 mmol/L (137-145); Triglycerides 117 mg/dL (<150)
[2023-01-17 13:20] LABS: LDL Cholesterol Direct 72 mg/dL
[2023-01-17 13:45] LABS: Prostate Specific Antigen 0.7 ng/mL (< OR = 4.0)
== END 2023-01-17 09:10 | disposition home or self-care (01) ==
LOC: ANHLAB 09:14
PROVIDERS: PCP Nurse Practitioner; Visit Provider Nurse Practitioner
DX: E78.5 Hyperlipidemia, unspecified (principal); Z12.5 Encounter for screening for malignant neoplasm of prostate
CPT/HCPCS: 36415; 80053; 80061; 84153; G0103

== ENCOUNTER 2023-03-15 11:15 | Outpatient (CLI) | payer BC, MEDICARE, SELFPAY ==
--- NOTE | ~2023-03-15 | XR_ITS ---
EXAMINATION: XR shoulder LT min 2V INDICATION: Left shoulder pain TECHNIQUE: Four views of the left shoulder are submitted. COMPARISON: None FINDINGS: Normal alignment. No fracture. There is mild osteoarthritis of the glenohumeral and acromio clavicular joints. Soft tissues are unremarkable. IMPRESSION: 1. No acute osseous abnormality. Reviewed, dictated and finalized at location B. STRY PILOT
== END 2023-03-15 11:16 | disposition home or self-care (01) ==
PROVIDERS: PCP Nurse Practitioner; Visit Provider Nurse Practitioner Family
DX: S49.92XA Unspecified injury of left shoulder and upper arm, initial encounter (principal); X58.XXXA Exposure to other specified factors, initial encounter
CPT/HCPCS: 73030

== ENCOUNTER 2023-03-24 09:40 | Emergency (ER) | payer BC, MEDICARE, SELFPAY ==
--- NOTE | ~2023-03-24 | XR_ITS ---
XR knee RT min 4V DATE: 03/24/2023 10:49 INDICATION: Right knee injury, pain TECHNIQUE: 4 views including crosstable lateral COMPARISON: None FINDINGS: Status post medial compartment joint replacement. Osteopenia. No fracture or dislocation, periosteal reaction or bone destruction is detected. No joint effusion is evident. Lateral compartment joint space is well preserved. IMPRESSION: Status post medial compartment joint replacement No fracture or dislocation or joint effusion is detected Reviewed, dictated and finalized at location A. [employer] CONTACT AND SERVICE [employer]ERKS
--- NOTE | 2023-03-24 09:59 | ED.LOWEXIN ---
HPI - Extremity Injury (Lower) General Chief Complaint: Extremity Injury, Lower Stated Complaint: right knee injury Time Seen by Provider: 03/24/23 09:58 Source: patient History of Present Illness HPI Narrative: 62 years old male came to the emergency room by private car complaining of right pain started immediately while trying to go down the steps, felt a pop. History of partial orthostasis of the right knee years ago. He denies other injuries. Related Data Home Medications Medication Instructions Recorded Confirmed ezetimibe 10 mg tablet 10 mg PO DAILY 01/05/21 03/15/23 metoprolol succinate 25 mg 25 mg PO TID 01/05/21 03/15/23 tablet,extended release 24 hr Allergies Allergy/AdvReac Type Severity Reaction Status Date / Time No Known Allergies Allergy Verified 03/24/23 09:40 Review of Systems Review of Systems: All systems reviewed & are unremarkable except as noted in HPI and below PMFSH Past Medical History Medical History Autoimmune hepatitis Cardiac arrest Cardiac arrest with ventricular fibrillation Dyslipidemia Essential hypertension Gastroesophageal reflux disease Osteoarthritis ST elevation (STEMI) myocardial infarction ST elevation myocardial infarction (STEMI) of anterior wall Surgical History Surgical History Status post bilateral knee replacements Family History Family History Sibling Family history of lupus erythematosus Patient's sister is in good health Patient's brother is in good health Father Family history of malignant neoplasm Patient's father is Mother Family history of malignant neoplasm Patient's mother is Social History Social History Social History: The patient is and lives with his in [place]. He has 4 children and 4 grandchildren. He works in construction. He is a former smoker and quit in 1998. No alcohol or illicit substance use. His Adrienne, a nurse, is his healthcare power of attorney law clerk and she wishes him to be a full code. Smoking packs per day: 0.25 Smoking cigarettes per day: 5.0 Years smoked: 17 Smoking pack-years: 4.25 Smoking status: Former smoker Second hand tobacco smoke exposure: No Smoking end date: 03/18/98 Alcohol intake: former Substance use: never Substance use type: does not use Lack of Transportation: No Lack of Food: Never True Current Housing: I Have Housing Concerned About Future Housing: Decline to Answer Difficulty Paying Gas/Electric Bills: Decline to Answer Difficulty Paying for Meds: Decline to Answer Currently Unemployed: Decline to Answer Education: High School Diploma/GED Difficulty w/ Childcare or Family Care: Decline to Answer Gender identity (if verbalized by the patient): Male Spiritual care concerns: No Exam Narrative: General appearance: Well-developed, well-nourished Skin: Normal color Head: Normocephalic, nontraumatic Eyes: Clear conjunctiva ENT: Oropharynx normal, ears normal, nose normal Neck: Supple, nontender Chest and respiratory: Airway patent, no respiratory distress, no accessory muscle use Heart: Regular rate/rhythm Abdomen: Soft, nontender, no organomegaly, quiet bowel sounds Vascular: Normal peripheral pulses, normal capillary refill. Musculoskeletal: Right knee exam showed old surgical scar, diffuse tenderness anterior medially, no swelling or bruises, limited range of motion Neurologic: Alert and oriented ?3, SYSTEMS ANALYSIS MANAGER is normal as tested, no gross motor deficit
[2023-03-24 10:06] VITALS: BP 100/82; PULSE 86; RESP 18; TEMP 36.7; O2SAT 100
[2023-03-24 10:10] VITALS: BP 100/82; PULSE 82; RESP 18; O2SAT 98
[2023-03-24] MEDS: HYDROcodone/acetaminophen (*CRX) 5-325 MG TABLET 1 TAB PO (10:15)
[2023-03-24 10:16] VITALS: BP 102/78; PULSE 80; RESP 18; TEMP 36.6; O2SAT 93
[2023-03-24] MEDS: IBUPROFEN 600 MG TABLET PO (10:16)
[2023-03-24 10:31] VITALS: BP 104/75; PULSE 80; RESP 16; O2SAT 96
[2023-03-24 11:01] VITALS: BP 105/71; PULSE 78; RESP 16; TEMP 36.5; O2SAT 100
== END 2023-03-24 11:52 | disposition home or self-care (01) ==
PROVIDERS: Emergency Provider Emergency Medicine; PCP Nurse Practitioner
DX: S83.91XA Sprain of unspecified site of right knee, initial encounter (principal); I10 Essential (primary) hypertension; I25.2 Old myocardial infarction; K75.4 Autoimmune hepatitis; K21.9 Gastro-esophageal reflux disease without esophagitis; E78.5 Hyperlipidemia, unspecified; M19.90 Unspecified osteoarthritis, unspecified site; Z96.653 Presence of artificial knee joint, bilateral; Z87.891 Personal history of nicotine dependence; Z79.01 Long term (current) use of anticoagulants; X50.9XXA Other and unspecified overexertion or strenuous movements or postures, initial encounter
CPT/HCPCS: 73564; 99283; A9270

== ENCOUNTER 2023-03-28 08:59 | Outpatient (CLI) | payer BC, MEDICARE, SELFPAY ==
--- NOTE | ~2023-03-28 | CT_ITS ---
Noncontrast CT scan of the right knee CLINICAL HISTORY: Broken internal right knee prosthesis TECHNIQUE: Axial noncontrast imaging of the right knee was performed. Sagittal and coronal reformatte d images were constructed Dose reduction technique was used on this scan by utilizing automated expos ure control and iterative reconstruction technique. The dose-length product (DLP) was 504.34 mGy-cm. Findings: Patient is status post medial compartment hemiarthroplasty. There is apparent dislocation o f the mobile bearing/spacer anteriorly (axial image 60). The metallic tibial and femoral components o therwise appear well situated. No acute osseous fracture seen. There is mild degenerative change of t he lateral and patellofemoral compartment. Moderate joint effusion present. IMPRESSION: Probable anterior dislocated mobile bearing/spacer from the medial compartment hemiarthroplasty, as d etailed above. Reviewed, dictated and finalized at location M. OR DATABASE PROGRAMMER IMPRESSION: Probable anterior dislocated mobile bearing/spacer from the medial compartment hemiarthroplasty, as detailed above.
[2023-03-28 09:22] LABS: Basophils Percent Auto 0.7 % (0.2-1.2); Eosinophils Absolute Auto 0.1 K/mm3 (0-0.3); Eosinophils Percent Auto 1.4 % (0-4.4); Hematocrit 47.6 % (42.0-52.0); Hemoglobin 16.1 g/dL (14.0-18.0); Immature Granulocyte Absolute 0.01 K/mm3 (0.00-0.031); Immature Granulocyte Percent A 0.2 % (0-0.5); Immature Platelet Fraction Pct 6.6 % (0.9-11.2); Lymphocytes Percent Auto 27.6 % (18.3-44.2); Mean Corpuscular HGB Conc 33.8 g/dl (32-36); Mean Corpuscular Volume 97.5 fl (80-100); Mean Platelet Volume 11.2 fl (7.4-10.4); Monocytes Absolute Auto 0.5 K/mm3 (0.1-0.6); Monocytes Percent Auto 11.8 % (2.6-8.5); Neutrophils Absolute Auto 2.5 K/mm3 (1.3-6.7); Neutrophils Percent Auto 58.3 % (45.5-73.1); Platelet Count Result 126 k/mm3 (150-375); Red Blood Count 4.88 M/mm3 (4.6-6.20); Red Cell Distribution Width 12.8 % (11.5-14.5); White Blood Count 4.3 K/mm3 (4.5-10.0)
[2023-03-28 09:34] LABS: CRP < 0.5 mg/dL (<1.0)
[2023-03-28 09:45] LABS: Erythrocyte Sedimentation Rate 6 mm/hr (0-20)
== END 2023-03-28 09:00 | disposition home or self-care (01) ==
PROVIDERS: PCP Nurse Practitioner; Visit Provider Orthopaedic Surgery
DX: T84.012A Broken internal right knee prosthesis, initial encounter (principal); Z96.653 Presence of artificial knee joint, bilateral
CPT/HCPCS: 36415; 73700; 85025; 85055; 85652; 86140

== ENCOUNTER 2023-07-24 10:51 | Outpatient (CLI) | payer BC, MEDICARE, SELFPAY ==
[2023-07-24 11:34] LABS: Alanine Aminotransferase 18 U/L (6-50); Albumin Level 4.7 g/dL (3.5-5.1); Anion Gap 5 mmol/L (4-12); Aspartate Amino Transferase 34 U/L (17-59); Bilirubin,Total 0.9 mg/dL (0.2-1.3); Blood Urea Nitrogen 14 mg/dL (9-20); Calcium 9.5 mg/dL (8.4-10.2); Carbon Dioxide 25 mmol/L (22-30); Chloride 107 mmol/L (98-107); Estimated Glomerular Filt Rate > 60; Glucose 80 mg/dL (65-110); Potassium 4.7 mmol/L (3.4-5.0); Sodium 137 mmol/L (137-145)
[2023-07-24 11:35] LABS: Alkaline Phosphatase 46 U/L (38-126); Cholesterol 118 mg/dL (0-200); HDL Direct 36 mg/dL; Triglycerides 173 mg/dL (<150)
[2023-07-24 11:45] LABS: LDL Cholesterol Direct 64 mg/dL
== END 2023-07-24 10:52 | disposition home or self-care (01) ==
LOC: ANHLAB 10:52
PROVIDERS: PCP Nurse Practitioner; Visit Provider Nurse Practitioner
DX: E78.5 Hyperlipidemia, unspecified (principal); E78.49 Other hyperlipidemia
CPT/HCPCS: 36415; 80053; 80061

== ENCOUNTER 2023-09-26 10:40 | Outpatient (CLI) | payer BC, MEDICARE, SELFPAY ==
[2023-09-26 11:43] LABS: Basophils Percent Auto 0.8 % (0.2-1.2); Eosinophils Absolute Auto 0.1 K/mm3 (0-0.3); Eosinophils Percent Auto 3.7 % (0-4.4); Hematocrit 40.8 % (42.0-52.0); Hemoglobin 13.8 g/dL (14.0-18.0); Immature Granulocyte Absolute 0.01 K/mm3 (0.00-0.031); Immature Granulocyte Percent A 0.3 % (0-0.5); Lymphocytes Absolute Auto 1.14 K/mm3 (0.9-3.2); Lymphocytes Percent Auto 32.2 % (18.3-44.2); Mean Corpuscular HGB Conc 33.8 g/dl (32-36); Mean Corpuscular Volume 97.6 fl (80-100); Mean Platelet Volume 11.1 fl (7.4-10.4); Monocytes Absolute Auto 0.4 K/mm3 (0.1-0.6); Monocytes Percent Auto 10.5 % (2.6-8.5); Neutrophils Absolute Auto 1.9 K/mm3 (1.3-6.7); Neutrophils Percent Auto 52.5 % (45.5-73.1); Platelet Count Result 141 k/mm3 (150-375); Red Blood Count 4.18 M/mm3 (4.6-6.20); Red Cell Distribution Width 13.4 % (11.5-14.5); White Blood Count 3.5 K/mm3 (4.5-10.0)
== END 2023-09-26 10:41 | disposition home or self-care (01) ==
LOC: ANHLAB 10:44
PROVIDERS: PCP Nurse Practitioner; Visit Provider Internal Medicine Cardiovascular Disease
DX: E78.5 Hyperlipidemia, unspecified (principal); I25.10 Atherosclerotic heart disease of native coronary artery without angina pectoris
CPT/HCPCS: 36415; 85025

== ENCOUNTER 2024-02-04 10:20 | Outpatient (CLI) | payer MEDICARE, SELFPAY ==
[2024-02-04 11:20] LABS: Alanine Aminotransferase 20 U/L (6-50); Albumin Level 4.4 g/dL (3.5-5.1); Alkaline Phosphatase 46 U/L (38-126); Anion Gap 9 mmol/L (4-12); Aspartate Amino Transferase 34 U/L (17-59); Bilirubin,Total 0.8 mg/dL (0.2-1.3); Blood Urea Nitrogen 18 mg/dL (9-20); Calcium 8.9 mg/dL (8.4-10.2); Carbon Dioxide 22 mmol/L (22-30); Chloride 107 mmol/L (98-107); Cholesterol 125 mg/dL (0-200); Estimated Glomerular Filt Rate > 60; Glucose 97 mg/dL (65-110); HDL Direct 40 mg/dL; Potassium 4.5 mmol/L (3.4-5.0); Sodium 138 mmol/L (137-145); Triglycerides 126 mg/dL (<150)
[2024-02-04 11:30] LABS: LDL Cholesterol Direct 52 mg/dL
[2024-02-04 11:48] LABS: Prostate Specific Antigen 0.7 ng/mL (< OR = 4.0)
== END 2024-02-04 10:21 | disposition home or self-care (01) ==
PROVIDERS: PCP Nurse Practitioner; Visit Provider Nurse Practitioner
DX: E78.5 Hyperlipidemia, unspecified (principal); Z12.5 Encounter for screening for malignant neoplasm of prostate; E78.49 Other hyperlipidemia
CPT/HCPCS: 36415; 80053; 80061; 84153; G0103

== ENCOUNTER 2024-10-28 17:01 | Outpatient (CLI) | payer MEDICARE, SELFPAY ==
--- OUTSIDE RECORDS SUMMARY | 2024-10-28 17:10 | XMS_ITS | Encounter Summary ---
Author Organization [facility] Address [address] [place] [address] Phone Care Team Providers Care Medical Records Auditor Name Role Phone Yan Heller MD Primary Care Provider [phone] Encounter Details Date Type Department Care Team (Late st Contact Info) Description 03/01/2020 Orders Only [facility] Scanning, Provider Social History Tobacco Use Types Packs/Day Years Used Date Smoking Tobacco: Never Alcohol Use Standard Drinks/Week Comments Not Currently 0 (1 standard drink = 0.6 oz pur e alcohol) Sex and Gender Information Value Date Recorded Sex Assigned at Not on file 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
--- OUTSIDE RECORDS SUMMARY | 2024-10-28 17:10 | XMS_ITS | Clinical Summary ---
Author Organization [facility] Address [address] [place] [address] Care Team Providers Care Dietitian Consultant Name Role Phone Dudley Kapoor Primary Care Provider [phone] Source Comments [facility],non-owned Affiliates and Associated Physician Practices is amultiple site organization consisting of ambulatory clinics and hospital sitesin [place], [place], [place] and [place]. This disclosure is being madepursuant to the Care Everywhere program and may not contain all information available regarding this patient. Last updated 17.[facility] Allergies No known active allergies Medications * Be aware that medications may not be up to date on this document. Alwaysverify current medications with the patient. amiodarone (CORDARONE) 200 MG tablet Take 200 mg by mouth once daily Active clopidogrel (PLAVIX) 75 MG tablet Take 75 mg by mouth once daily Active colchicine 0.6 MG tablet Take 0.6 mg by mouth once daily Active Furosemide (LASIX PO) Take 10 mg by mouth once daily Active Metoprolol Tartrate 75 MG TABS Take 75 mg by mouth 2 times daily Active Rosuvastatin Calcium 20 MG CPSP Take 20 mg by mouth every evening Active sacubitril-vals vikas (ENTRESTO) 49-51 MG tablet Take 0.5 tablets by mouth 2 times daily Active spironolactone (ALDACTONE) 25 MG tablet Take 25 mg by mouth once daily Active warfarin (COUMADIN) 6 MG tablet Take 6 mg by mouth as directed Active warfarin (COUMADIN) 5 MG tablet Take 5 mg by mouth as directed Active azaTHIOprine (IMURAN) 50 MG tablet Take 50 mg by mouth once daily Active pantoprazole EC (PROTONIX) 40 MG tablet Take 40 mg by mouth once daily Active multivitamin daily tablet Take 1 tablet by mouth once daily Active Active Problems Problem Noted Date Diagnosed Date CAD (coronary artery disease) 04/08/2020 HFrEF (heart failure with reduced ejection fract ion) 04/08/2020 HTN (hypertension), benign 04/08/2020 HLD (hyperlipidemia) 04/08/2020 Hyperkalemia 04/08/2020 Wound of left leg 04/08/2020 History of anterior wall myocardial infarction 0 04/08/2020 Ischemic cardiomyopathy 04/08/2020 PAF (paroxysmal atrial fibrillation) 04/08/2020 Status post insertion of edi g-eluting stent into left anterior descending artery 04/08/2020 Family History Medical History Relation Name Comments Other - Cardiac Brother Heart diseas e Relation Name Status Comments Brother Social History Tobacco Use Types Packs/Day Years Used Date Smoking Tobacco: Former Smokeless Tobacco: Never Sex and Gender Information Value Date Recorded Sex Assigned at Not on file Legal Sex Male 1:53 PM SAND SCREENER OPERATOR Gender Identity Not on file Sexual Orientation Not on file Last Filed Vital Signs Vital Sign Reading Time Taken Comments Blood Pressure 90/60 04/15/2020 10:58 AM SAND SCREENER OPERATOR Pulse 61 04/15/2020 10:58 AM SAND SCREENER OPERATOR Temperature - - Respiratory Rate - - Oxygen Saturation - - Inhaled Oxygen Concentration - - Weight 118.8 kg (262 lb) 04/15/2020 10:58 AM SAND SCREENER OPERATOR Height 195.6 cm (6' 5) 04/15/2020 10:58 AM SAND SCREENER OPERATOR Body Mass Index 31.07 04/15/2020 10:58 AM SAND SCREENER OPERATOR Plan of Treatment Health Maintenance Due Date Last Done Comments COLOGUARD (AGES 45-75) - COL ON CA SCREENING 1962 COLON MONITORING 1962 COLONOSCOPY - COLON CA SCREENING 1962 CT COLONOGRAPHY - COLON CA SCREENING 1962 Colorectal Cancer Screening 1962 FIT - COLON CA SCREENING 1962 FLEX SIG - COLON CA SCREENING 1962 HIV SCREENING 1977 HEPATITIS C SCREENING 08/10/1980 DTAP/TDAP/TD VACCINES (1 - Tdap) 1981 PNEUMOCOCCAL VACCINE 50+ (1 of 1 - PCV) 2012 ZOSTER VACCINE (1 of 2) 2012 SCREENING FOR DIABETES 04/15/2020 COVID-19 VACCINE (1 - 2023-2 5 season) 2023 DEPRESSION SCREENING 03/18/2024 INFLUENZA VACCINE (#1) 2024 Respiratory Syncytial Virus (RSV) Vaccine Pt: or over 60 yrs (1 - 1-dose 75+ series) 2037 HEPATITIS B VACCINE Aged Out No longe r eligible based on patient's age to complete this topic HIB VACCINE Aged Out No longer eligi ble based on patient's age to complete this topic HPV VACCINE Aged Out No longer eligi ble based on patient's age to complete this topic MENINGOCOCCAL (Group B) VACC INE SHARED DECISION-MAKING Aged Out No longer eligibl e based on patient's age to complete this topic MENINGOCOCCAL GROUPS A/C/Y/W VACCINE Aged Out No longer eligible b ased on patient's age to complete this topic Insurance Care Teams Dietitian Consultant Relationship Specialty Start Date End Date Dudley Kapoor DO [address] [place] [id number] PCP - General Internal Medicine 04/14/20
--- OUTSIDE RECORDS SUMMARY | 2024-10-28 17:10 | XMS_ITS | Clinical Summary ---
Author Organization [facility] Address [address] [place] [address] Care Team Providers Care Personal Lines Account Executive Name Role Phone Yan Heller MD Primary Care Provider [phone] Allergies Active Allergy Reactions Criticality Noted Date Comments No Known Allergies Other (See comments) Low Reaction: Medications amLODIPine (NORVASC) 5 mg tablet daily. 6 Active HYDROcodone-ac etaminophen (NORCO) 10-325 mg per tabletIndicati ons:Pain TK 1 T PO QID PRN P 0 8 Active omeprazole (PriLOSEC) 20 mg capsule take 1 capsule by mouth every day 8 Active sildenafil (VIAGRA) 100 mg tablet TK 1/2 TO 1 T PO QD PRN 0 8 Active amoxicillin-cl avulanate (AUGMENTIN) 500-125 mg per tablet TK 1 T PO Q 12 H WITH FOOD 0 8 Active triamcinolone (KENALOG) 0.5 % cream APPLY A THIN LAYER TO AFFECTED AREA BID 2 8 Active benzonatate (TESSALON) 100 mg capsuleIndicat ions:Cough Take 1 capsule (100 mg total) by mouth 3 (three) times a day as needed for cough. 20 capsule 8 Active Additional Information Patient not taking.Reported on 04/02/2019 fluticasone propionate (FLONASE) 50 mcg/actuation nasal spray spray 2 spray by intranasal route every day in each nostril as needed 8 Active pravastatin (PRAVACHOL) 20 mg tablet Take 1 tablet by mouth daily 9 Active amiodarone (PACERONE) 200 mg tablet Take 200 mg by mouth daily 0 Active clopidogreL (PLAVIX) 75 mg tablet Take 75 mg by mouth daily 0 Active enoxaparin (LOVENOX) 120 mg/0.8 mL syringe INJECT ONE SYRINGE SUBCUTANEOUSLY TWICE DAILY // STOP WHEN INR IS > 2.0 0 Active furosemide (LASIX) 20 mg tablet Take 20 mg by mouth daily 0 Active rosuvastatin (CRESTOR) 20 mg tablet Take 20 mg by mouth nightly at bedtime 0 Active Entresto 49-51 mg tablet Take 1 tablet by mouth 2 (two) times a day 0 Active warfarin (COUMADIN) 2 mg tablet TAKE TWO AND ONE-HALF TABLETS BY MOUTH ONCE DAILY 0 Active azaTHIOprine (IMURAN) 50 mg tabletIndicati ons:autoimmune disease Take 1 tablet (50 mg total) by mouth daily 90 tablet 3 1 Active Active Problems Problem Noted Date Diagnosed Date Healthcare maintenance 02/28/2018 Assessment & Plan (02/28/2018 12:04 PM LONGWALL HEADGATE OPERATOR): He is reportedly up-to-date on colon cancer screening. He should be vaccinated for hepatitis A and B if this is not already been done. This can be done through his primary care physician or local health department. Cough 02/21/2018 Leukopenia 04/02/2017 Heartburn 03/28/2017 Obesity with body mass index 30 or greater 03/15 Hypertension 03/15/2016 Autoimmune hepatitis 11/20/2012 Assessment & Plan (02/28/2018 12:03 PM LONGWALL HEADGATE OPERATOR): This was diagnosed in 2012 with transaminases in the thousands and liver biopsy showing severe acute hepatitis and no fibrosis. He has had a good response to azathioprine, and given his severe presentation, I plan to continue this indefinitely. He is now on a lower dose due to his intermittent leukopenia, although it is unclear whether this change has made a meaningful difference. His liver enzymes are all within normal limits as of October, and so I think it is reasonable to continue this dose provided he remains in biochemical remission. I have given him orders today for a CBC and CMP which he will have done at [facility]. We will plan to recheck these in 6 months if everything is stable. Surgical History Surgery Date Site/Laterality Comments BIOPSY LIVER 11/14/2012 N/A Family History Relation Name Status Comments Other no hx Alive Social History Tobacco Use Types Packs/Day Years Used Date Smoking Tobacco: Never Alcohol Use Standard Drinks/Week Comments Not Currently 0 (1 standard drink = 0.6 oz pur e alcohol) Sex and Gender Information Value Date Recorded Sex Assigned at Not on file Legal Sex Male 7:55 AM LONGWALL HEADGATE OPERATOR Gender Identity Not on file Sexual Orientation Not on file Obstetrics History Last Filed Vital Signs Vital Sign Reading Time Taken Comments Blood Pressure 108/69 03/31/2020 8:30 AM LONGWALL HEADGATE OPERATOR Pulse 75 03/31/2020 8:30 AM LONGWALL HEADGATE OPERATOR Temperature 36.4 C (97.6 F) 03/31/2020 8:30 AM LONGWALL HEADGATE OPERATOR Respiratory Rate 18 11/08/2017 1:40 PM CDT Oxygen Saturation 98% 11/08/2017 1:40 PM CDT Inhaled Oxygen Concentration - - Weight 117.9 kg (260 lb) 03/31/2020 8:30 AM LONGWALL HEADGATE OPERATOR Height 195.6 cm (6' 5) 03/31/2020 8:30 AM LONGWALL HEADGATE OPERATOR Body Mass Index 30.83 03/31/2020 8:30 AM LONGWALL HEADGATE OPERATOR Plan of Treatment Health Maintenance Due Date Last Done Comments Colon Cancer Screening-Colonoscopy 1962 Depression Screening 1962 Prostate Cancer Screening-PSA 1962 DTaP/Tdap/Td Vaccine (1 - Tdap) 1973 Hepatitis B Screening 1980 Regular Well Visit/Exam 18-64 1980 Pneumococcal vaccine <65 (1 of 2 - PCV) 1981 Zoster Vaccine (1 of 2) 1981 Covid-19 Vaccine (3 - Pfizer risk series) 07/18/2020 06/20/2020, 05/27/2020 Influenza Vaccine (#1) 2024 Hepatitis C Screening Completed 11/14/2012 Procedures Procedure Name Priority Date/Time Associated Diagnosis Comments SERUM HEPATITIS PANEL Routine 11/14/2012 12:39 AM CDT from Last 3 Months or Most Recently Relevant to Health Maintenance Results * Serum Hepatitis panel (11/14/2012 12:39 AM CDT) HBV surface ag Negative NEG HISTO RICAL RESULTS HCV ab Negative NEG HISTORICAL RESULTS Comment: Interpretive Data If confirmation is required, call Laboratory Customer Service to request sample to be sent to [facility] for Hepatitis C Virus (HCV) RNA Detection and Quantitation by Real-Time Reverse Insulation Board Back Tender-PCR (RT-PCR). Current interpretive data was last revised on 2011 HBV core ab, IgM Negative NEG HIS TORICAL RESULTS Comment: Interpretive Data If test is reported as Equivocal, new sample should be drawn for testing. Current interpretive data was last revised on 2007. HAV ab, IgM Negative NEG HISTORIC AL RESULTS Comment: Interpretive Data If test is reported as Equivocal, new sample should be drawn in two weeks for testing. Current interpretive data was last revised on 2007. Serum 11/14/2012 12:3 9 AM CDT us Romel Morales MD LAB BLOOD ORDERABLES F inal Result HISTORICAL RESULTS from Last 3 Months or Most Recently Relevant to Health Maintenance [place] [address] [facility] MEDICARE [facility] Address: [facility] [address] [place] [address] [facility] [employer] SIGNATURE Care Teams Personal Lines Account Executive Relationship Specialty Start Date End Date Yan Heller MD PCP - General 03/28/17
[2024-10-28 17:35] LABS: Hematocrit 42.6 % (42.0-52.0); Hemoglobin 14.3 g/dL (14.0-18.0); Immature Granulocyte Percent A 0.3 % (0-0.5); Lymphocytes Absolute Auto 1.27 K/mm3 (0.9-3.2); Mean Corpuscular HGB Conc 33.6 g/dl (32-36); Mean Corpuscular Hemoglobin 32.7 pg (26-34); Mean Corpuscular Volume 97.5 fl (80-100); Nucleated Red Blood Cells Absolute Auto 0.000 K/mm3 (0.0-0.012); Nucleated Red Blood Cells Perc 0.0 % (0.0-0.2); Platelet Count Result 125 k/mm3 (150-375); Red Blood Count 4.37 M/mm3 (4.6-6.20); White Blood Count 3.3 K/mm3 (4.5-10.0)
[2024-10-28 17:56] LABS: Alanine Aminotransferase 22 U/L (6-50); Albumin Level 4.4 g/dL (3.5-5.1); Alkaline Phosphatase 50 U/L (38-126); Anion Gap 10 mmol/L (4-12); Aspartate Amino Transferase 37 U/L (17-59); Bilirubin,Total 0.8 mg/dL (0.2-1.3); Blood Urea Nitrogen 16 mg/dL (9-20); Calcium 9.1 mg/dL (8.4-10.2); Carbon Dioxide 21 mmol/L (22-30); Chloride 107 mmol/L (98-107); Estimated Glomerular Filt Rate > 60; Glucose 100 mg/dL (65-110); Potassium 4.1 mmol/L (3.4-5.0); Sodium 138 mmol/L (137-145); Total Protein 7.8 g/dL (6.3-8.2)
== END 2024-10-28 17:02 | disposition home or self-care (01) ==
PROVIDERS: PCP Nurse Practitioner
DX: K75.4 Autoimmune hepatitis (principal)
CPT/HCPCS: 36415; 80053; 85025

== ENCOUNTER 2024-11-10 14:01 | Outpatient (CLI) | payer MEDICARE, SELFPAY ==
--- OUTSIDE RECORDS SUMMARY | 2024-01-08 07:41 | XMS_ITS ---
Author Organization [facility] Address [address] [address] Care Team Providers Care Early Childhood Services Coordinator Name Role Phone Antwon Dudley Primary Care Provider Unavailreagan Snider Jr, MD, Jonatan Unavailable [phone] REASON FOR VISIT prescription refill MEDICATIONS Medication SIG (Take, Route, Frequency, Duration) Notes Start Date End Date Status Acetaminophen-Codeine 300-30 MG 1 tablet as needed Orally every 6-8 hrs 01/08/2024 Active Encounters Encounter Location Date Provider Diagnosis [facility] [address], [place] [address] 01/08/2024 Jonatan Snider Jr, MD PLAN OF TREATMENT Medication Medication Name Sig Start Date Stop Date Notes Acetaminophen-Codeine 300-30 MG 1 tablet as needed Orally every 6-8 hrs 01/08/2024
--- OUTSIDE RECORDS SUMMARY | 2024-02-24 07:02 | XMS_ITS ---
Author Organization [facility] Address [address], [place] [address] Care Team Providers Care Professor Of Architecture Name Role Phone Antwon FERRER Eddie Primary Care Provider Unavailreagan e Agatha Martinez MD, Jonatan Unavailable MEDICATIONS Medication SIG (Take, Route, Frequency, Duration) Notes Start Date End Date Status Acetaminophen-Codeine 300-30 MG 1 tablet as needed Orally every 6 hrs 02/24/2024 Active Encounters Encounter Location Date Provider Diagnosis [facility] [address] [facility] [facility] [address], [place] [address] 02/24/2024 Jonatan Snider Jr, MD PLAN OF TREATMENT Medication Medication Name Sig Start Date Stop Date Notes Acetaminophen-Codeine 300-30 MG 1 tablet as needed Orally every 6 hrs 02/24/2024
--- OUTSIDE RECORDS SUMMARY | 2024-05-05 04:00 | XMS_ITS ---
Author Organization [facility] Address [address] [place] [address] Care Team Providers Care Mining Machinery Assembler Name Role Phone Dudley Kapoor DO Primary Care Provider Unavailreagan e Agatha Martinez MD, Jonatan Unavailable REASON FOR VISIT rt knee 1y f/u Encounters Encounter Location Date Provider Diagnosis [facility] [address], [place] [address] 05/05/2024 Jonatan Snider Jr, MD PLAN OF TREATMENT No Information
--- OUTSIDE RECORDS SUMMARY | 2024-11-03 07:31 | XMS_ITS ---
Author Organization [facility] Address [address] [place] [address] [address] [place] [address] Care Team Providers Care Step Finisher Name Role Phone Antwon FERRER Eddie Primary Care Provider Unavailreagan Shelton MD, Camilo Unavailable Unavailable Gaby Turcios [phone] REASON FOR VISIT FYI Encounters Encounter Location Date Provider Diagnosis [facility], [address] [place] [address] 11/03/2024 Gaby Turcios Plan Of Treatment No Information Progress Notes * LARSAleida RodaskayeDOB:1960 ([age] yo M)Acc No.[id number]:11/03/2024 Patient: Cristofer SHAFER :1960 A ge:64 Y S ex:Male Address:[address] [place] [address] [address] [facility] [address] Subjective: * Chief Complaints: * F CROATIAN * Medical History: * Surgical History: * Hospitalization/Major Diagno stic Procedure: * Medications: Objective: * Vitals: * Physical Examination: Assessment: Plan: * Treatment: * Procedure Codes: * * Date:
--- OUTSIDE RECORDS SUMMARY | 2024-11-10 14:08 | XMS_ITS | Clinical Summary ---
Author Organization [facility] Address [address] [place] [address] Care Team Providers Care Governor Assembler Name Role Phone Dudley Kapoor Primary Care Provider [phone] Source Comments [facility],non-owned Affiliates and Associated Physician Practices is amultiple site organization consisting of ambulatory clinics and hospital sitesin [place], [place], [place] and [place]. This disclosure is being madepursuant to the Care Everywhere program and may not contain all information available regarding this patient. Last updated 17.[facility] Allergies No known active allergies Medications * [...] on file Legal Sex Male 1:53 PM TRAY FILLER Gender Identity Not on file Sexual Orientation Not on file Last Filed Vital Signs Vital Sign Reading Time Taken Comments Blood Pressure 90/60 04/15/2020 10:58 AM TRAY FILLER Pulse 61 04/15/2020 10:58 AM TRAY FILLER Temperature - - Respiratory Rate - - Oxygen Saturation - - Inhaled Oxygen Concentration - - Weight 118.8 kg (262 lb) 04/15/2020 10:58 AM TRAY FILLER Height 195.6 cm (6' 5) 04/15/2020 10:58 AM TRAY FILLER Body Mass Index 31.07 04/15/2020 10:58 AM TRAY FILLER Plan of Treatment Health Maintenance Due Date [...] to complete this topic Insurance Care Teams Governor Assembler Relationship Specialty Start Date End Date Dudley Kapoor DO [address] [place] [id number] PCP - General Internal Medicine 04/14/20
--- OUTSIDE RECORDS SUMMARY | 2024-11-10 14:08 | XMS_ITS | Patient Health Record ---
Author Organization [facility] Address [address] [address] [facility] [address] [place] [address] Care Team Providers Care Loan Operations Specialist Name Role Phone Antwon Dudley Primary Care Provider Unavailreagan Shelton MD, Camilo Unavailable Unavailable Lennox Garcia Unavailable [phone] Jerica Hansen Unavailable [phone] Jayson Marcial Unavailable [phone] Gaby Turcios Unavailable [phone] Allergies No Known Allergies Results Component Value Reference Range Notes CMP: COMPLETE METABOLIC PANE L Reviewed date:11/03/2024 11:48:04 AM Interpretation: Performing Lab: Notes/Report: Thiopurine Metabolites Reviewed date:11/09/2024 04:56:28 PM Interpretation: Performing Lab: Notes/Report: CBC With Differential/Platel et Reviewed date:11/03/2024 12:34:04 PM Interpretation: Performing Lab: Notes/Report: ULTRASOUND LIVER Reviewed date:11/04/2024 11:44:32 AM Interpretation: Performing Lab: Notes/Report: Reason For Referral No Information Medications Medication SIG (Take, Route, Fr equency, Duration) Notes Start Date End Date Status Rosuvastatin Calcium Active Icosapent Ethyl Acti ve Jardiance Active Metoprolol Tartrate Active Nitroglycerin Active azaTHIOprine 50 MG Take 1 tablet by greg th once daily for 90 Active OTC/Vitamins MVI Active Ezetimibe Active Eliquis Active Furosemide Active Sacubitril-Valsartan Active Pantoprazole Sodium Active Spironolactone Activ e Social History Tobacco Use: Social History Observation Description Date Details (start date - stop date) Never Smoker NA - NA Tobacco Control (Standard) Question Answer Notes Tobacco use: Nonsmoker Problems Problem Type SNOMED Code ICD Code Onset Dates Problem Status W/U Status Risk Notes Problem 599663333 Autoimmune hepatitis (K75.4) Active confirmed He currently remains on azathioprine 50 mg daily. Autoimmune hepatitis was diagnosed in 2012 on liver biopsies. Currently asymptomatic. He denies history of recent flares. He states he has had recent blood work. Unavailable at today's visit. Problem Hepatic steatosis (K76.0) Active confirmed Noted on 10/2023 ultrasound. Follow-up FibroScan revealed S0/F0-1. Problem Acid reflux (524508514) Acid reflux (K21.9) Active confirmed He remains on pantoprazole 40 mg daily that well controls acid reflux. He denies nausea, vomiting, and dysphagia. He is unable to recall if he has had an upper endoscopy. Vital Signs Height 77 in 10/27/2024 Weight 216 lbs 10/27/2024 BMI 25.61 kg/m2 10/27/2024 Encounters Encounter Location Date Provider Diagnosis [facility], [address] [place] [address] 10/27/2024 Gaby Turcios Autoimmune hepatitis K75.4 ; Hepatic steatosis K76.0 ; Acid reflux K21.9 and Colon cancer screening Z12.11 [facility], [address] [place] [address] 11/03/2024 Gaby Turcios [facility], [address] [place] [address] 11/09/2024 Jayson Marcial [facility], [address] [place] [address] 11/13/2023 Jayson Marcial Autoimmune hepatitis K75.4 and Hepatic steatosis K76.0 [facility], [address] [place] [address] 11/14/2023 Lennox Garcia [facility], [address] [place] [address] 12/05/2023 Gaby Karolina [facility] [address] [place] [address] [place] [address] 02/10/2024 Jayson Marcial Acid reflux K21.9 [facility], [address] [place] [address] 10/01/2024 Gaby Turcios [facility], [address] [place] [address] 10/27/2024 Jerica Hansen [facility], [address] [place] [address] 10/27/2024 Gaby Boudreauxim Autoimmune hepatitis K75.4 [facility], [address] [place] [address] 10/28/2024 Gaby Karolina [facility], [address] [place] [address] 10/29/2024 Gaby Boudreauxim Autoimmune hepatitis K75.4 and High risk medication use Z79.899 Assessments Encounter Date Diagnosis (ICD Code) Assessment Notes Treatment Notes Treatment Clinical Notes Section Notes 11/13/2023 Autoimmune hepatitis (ICD-10 - K75.4) 02/10/2024 Acid reflux (ICD-10 - K21.9) 10/27/2024 Autoimmune hepatitis (ICD-10 - K75.4) He currently remains on azathioprine 50 mg daily. Autoimmune hepatitis was diagnosed in 2012 on liver biopsies. Currently asymptomatic. He denies history of recent flares. He states he has had recent blood work. Unavailable at today's visit. He will continue azathioprine 50 mg daily. He does not need a refill at this time.Will request copies of recent blood work. Pending results, he may warrant additional labs.Complete ultrasound. 10/27/2024 Hepatic steatosis (ICD-10 - K76.0) Noted on 10/2023 ultrasound. Follow-up FibroScan revealed S0/F0-1. Continue healthy diet, routine exercise, and maintaining stable weight. 10/27/2024 Autoimmune hepatitis (ICD-10 - K75.4) 10/29/2024 Autoimmune hepatitis (ICD-10 - K75.4) 10/29/2024 High risk medication use (ICD-10 - Z79.899) 10/27/2024 Acid reflux (ICD-10 - K21.9) He remains on pantoprazole 40 mg daily that well controls acid reflux. He denies nausea, vomiting, and dysphagia. He is unable to recall if he has had an upper endoscopy. Discussed medication options with patient. Will attempt to discontinue pantoprazole. He will start pantoprazole every other day for 2 weeks then discontinue. Continue antireflux diet and lifestyle modifications. He may use Tums or Pepcid as needed. For significant breakthrough symptoms, he will call our office. Will contact his PCPs office to determine if he is had upper endoscopy in the past. 11/13/2023 Hepatic steatosis (ICD-10 - K76.0) 10/27/2024 Colon cancer screening (ICD-10 - Z12.11) November 2023 Cologuard negative. Having 1 formed bowel movement daily without alarm features. Plan to repeat Cologuard in November 2026. 10/27/2024 Other Mr. Mckeon verbalized understanding of the plan and recommendations. All questions answered. The patient may call our office for new GI complaints or alarm symptoms as needed. If he does not hear from our office in 1 to 2 days of completing blood work/diagnosti c imaging, he may call to get results. Plan Of Treatment Pending Test Test Name Order Date CMP: COMPLETE METABOLIC PANEL 08/27/2022 Hepatic Function 11/13/2023 Initiate Fibroscan 11/08/2023 Insurance Providers Payer Name Payer Address Payer Phone Subscriber Number Group Number Insured Name Patient Relationship to Insured Coverage Start Date Coverage End Date [facility] Complete Care PPO [address] [address] [place] [address] [id number] Cristofer Mckeon Self - patient is the insured 4 [employer] Access PPO E2 [address] [place] [address] [id number] Cristofer Mckeon Self - patient is the insured 4 Medical (General) History Medical History History ICD Code Autoimmune Hepatitis GERD Fatty Liver Disease Heart Disease/Stents Hypertension Hyperlipidemia Surgical History Surgery Date(Month/Year) Joint Replacement Defibrillator Hospitalization History Reason Date(Month/Year) Myocardial Infarction 02/2020
--- OUTSIDE RECORDS SUMMARY | 2024-11-10 14:09 | XMS_ITS | Patient Health Record ---
Author Organization [facility] Address [address] [place] [address] Care Team Providers Care Tree Marker Name Role Phone Antwon Dudley Primary Care Provider Unavailreagan Snider Jr, MD, Jonatan Unavailable ALLERGIES No Known Allergies REASON FOR REFERRAL No Information MEDICATIONS Medication SIG (Take, Route, Frequency, Duration) Notes Start Date End Date Status Ezetimibe 10 MG as directed Ac tive Clopidogrel Bisulfate 75 MG as directed Active Vascepa Active Acetaminophen-Codeine 300-30 MG 1 tablet as needed Orally every 6 hrs 12/10/2023 Active Acetaminophen-Codeine 300-30 MG 1 tablet as needed Orally every 6 hrs 11/19/2023 Active Acetaminophen-Codeine 300-30 MG 1 tablet as needed Orally every 6-8 hrs 01/08/2024 Active Potassium Chloride A ctive azaTHIOprine 50 MG as directed Active Acetaminophen-Codeine 300-30 MG 1 tablet as needed Orally every 6 hrs 10/08/2023 Active Furosemide 20 MG as directed A ctive Entresto 49-51 MG as directed Active Rosuvastatin Calcium Active Eliquis 2.5 MG as directed Orally t wice a day for 7 days 05/27/2023 Active Spironolactone 25 MG as directed Active Eliquis 5 MG as directed Activ e Multivitamin Active Metoprolol Tartrate 75 MG as directed Active Jardiance Active Pantoprazole Sodium Active Acetaminophen-Codeine 300-30 MG 1 tablet as needed Orally every 6 hrs 02/24/2024 Active SOCIAL HISTORY Tobacco Use: Social History Observation Description Date Details (start date - stop date) Never Smoker NA - NA Sex Assigned At : Social History Observation Description Sex Assigned At Unknown Tobacco Use: Question Answer Notes Patient is a: nonsmoker Alcohol screening: Question Answer Notes Did you have a drink containing alcohol in the p ast year? 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) (483016643500708 02) Problem Aftercare following joint replacement surgery (Z47.1) 4 Active confirmed 029923196 Problem Presence of right artificial knee joint (Z96.651) 6 Active confirmed 710435811325 Problem Hypertension (I10) Active confirmed Hypertension (30218164) Problem Overexertion from strenuous movement or load, initial encounter (X50.0XXA) 4 Active confirmed 79361763 Problem Failed orthopedic implant, initial encounter (T84.498A) 4 Active confirmed [id number] Encounters Encounter Location Date Provider Diagnosis [facility] [address] [place] [address] 05/05/2024 Jonatan Snider Jr, MD [facility] [address] [facility] [address] 11/19/2023 Jonatan Snider Jr, MD [facility] [address] [facility] [address] 12/10/2023 Jonatan Snider Jr, MD [facility] [address] [facility] [address] 01/08/2024 Jonatan Snider Jr, MD [facility] [address] [facility] [address] 02/24/2024 Jonatan Snider Jr, MD PLAN OF TREATMENT Pending Test Test Name Order Date Urinalysis, Complete 04/18/2023 CBC With Differential/Platelet 4 Cell Count, Synovial Fluid 04/18/2023 Crystal Exam,Miscellaneous Fl 04/18/2023 C-Reactive Protein, Quant 04/18/2023 Anaerobic and Aerobic Culture 04/18/2023 PT/INR 04/18/2023 MRSA Screening 04/18/2023 EKG 04/18/2023 CMP 04/18/2023 sedimentation rate 04/18/2023 Alpha defensin 04/18/2023 A1c 04/18/2023 Insurance Providers Payer Name Payer Address Payer Phone Subscriber Number Group Number Insured Name Patient Relationship to Insured Coverage Start Date Coverage End Date [employer] [address] [place] [address] [id number] Adrienne Mckeon Spouse - patient is the spouse of the insured [facility] Medicare Advantage PPO [address] [address] [place] [address] [id number] Cristofer Mckeon Self - patient is the insured MEDICAL (GENERAL) HISTORY Medical History History ICD Code Liver Disease High Cholesterol High Blood Pressure Heart Attack Surgical History Surgery Date(Month/Year) revision RTKR (RDRJR) 04/26/23 Total knee replacement 2014 partial knee replacement 2014 Placement of stent 2020
--- OUTSIDE RECORDS SUMMARY | 2024-11-10 14:09 | XMS_ITS | Encounter Summary ---
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
--- OUTSIDE RECORDS SUMMARY | 2024-11-10 14:09 | XMS_ITS | Clinical Summary ---
Author Organization [facility] Address [address] [place] [address] Care Team Providers Care Milk Receiver Name Role Phone Yan Heller MD Primary Care Provider [phone] Allergies Active Allergy Reactions Criticality Noted Date [...] 02/28/2018 Assessment & Plan (02/28/2018 12:04 PM FURNISHINGS CONSERVATOR): He is reportedly up-to-date on colon cancer screening. He should be vaccinated for hepatitis A and B if this is not already been done. This can be done through his primary care physician or local health department. Cough 02/21/2018 Leukopenia 04/02/2017 Heartburn 03/28/2017 Obesity with body mass index 30 or greater 03/15 Hypertension 03/15/2016 Autoimmune hepatitis 11/20/2012 Assessment & Plan (02/28/2018 12:03 PM FURNISHINGS CONSERVATOR): This was diagnosed in 2012 with transaminases [...] CMP which he will have done at [facility]. We will plan to recheck these in [...] on file Legal Sex Male 7:55 AM FURNISHINGS CONSERVATOR Gender Identity Not on file Sexual Orientation Not on file Obstetrics History Last Filed Vital Signs Vital Sign Reading Time Taken Comments Blood Pressure 108/69 03/31/2020 8:30 AM FURNISHINGS CONSERVATOR Pulse 75 03/31/2020 8:30 AM FURNISHINGS CONSERVATOR Temperature 36.4 C (97.6 F) 03/31/2020 8:30 AM FURNISHINGS CONSERVATOR Respiratory Rate 18 11/08/2017 1:40 PM CDT Oxygen Saturation 98% 11/08/2017 1:40 PM CDT Inhaled Oxygen Concentration - - Weight 117.9 kg (260 lb) 03/31/2020 8:30 AM FURNISHINGS CONSERVATOR Height 195.6 cm (6' 5) 03/31/2020 8:30 AM FURNISHINGS CONSERVATOR Body Mass Index 30.83 03/31/2020 8:30 AM FURNISHINGS CONSERVATOR Plan of Treatment Health Maintenance Due Date [...] to request sample to be sent to [facility] for Hepatitis C Virus (HCV) RNA Detection and Quantitation by Real-Time Reverse Foot And Ankle Surgeon-PCR (RT-PCR). Current interpretive data was last revised [...] to Health Maintenance [place] [address] [place] [address] [facility] MEDICARE ADVANTAGE [facility] Address: [address] [place] [address] [facility] [employer] SIGNATURE Care Teams Milk Receiver Relationship Specialty Start Date End Date Yan Heller MD PCP - General 03/28/17
[2024-11-10 15:15] LABS: Cholesterol 106 mg/dL (0-200); HDL Direct 33 mg/dL; Magnesium 1.9 mg/dL (1.6-2.3); Triglycerides 145 mg/dL (<150)
[2024-11-10 15:23] LABS: NT Pro B Type Natriuretic Pept 350 pg/mL (19.9-100)
== END 2024-11-10 14:02 | disposition home or self-care (01) ==
PROVIDERS: PCP Nurse Practitioner; Visit Provider Internal Medicine Cardiovascular Disease
DX: E78.5 Hyperlipidemia, unspecified (principal); I48.0 Paroxysmal atrial fibrillation; I11.0 Hypertensive heart disease with heart failure; I50.42 Chronic combined systolic (congestive) and diastolic (congestive) heart failure; I25.2 Old myocardial infarction; E66.9 Obesity, unspecified; Z98.890 Other specified postprocedural states; Z95.5 Presence of coronary angioplasty implant and graft; Z95.810 Presence of automatic (implantable) cardiac defibrillator
CPT/HCPCS: 36415; 80061; 83735; 83880

== ENCOUNTER 2025-02-08 15:31 | Outpatient (CLI) | payer MEDICARE, SELFPAY ==
[2025-02-08 16:34] LABS: Hematocrit 43.5 % (42.0-52.0); Hemoglobin 14.8 g/dL (14.0-18.0); Immature Granulocyte Percent A 0.3 % (0-0.5); Immature Platelet Fraction Pct 4.6 % (0.9-11.2); Lymphocytes Absolute Auto 1.33 K/mm3 (0.9-3.2); Mean Corpuscular HGB Conc 34.0 g/dl (32-36); Mean Corpuscular Hemoglobin 32.7 pg (26-34); Mean Corpuscular Volume 96.2 fl (80-100); Nucleated Red Blood Cells Absolute Auto 0.000 K/mm3 (0.0-0.012); Nucleated Red Blood Cells Perc 0.0 % (0.0-0.2); Platelet Count Result 124 k/mm3 (150-375); Red Blood Count 4.52 M/mm3 (4.6-6.20); White Blood Count 3.6 K/mm3 (4.5-10.0)
[2025-02-08 17:25] LABS: Alanine Aminotransferase 25 U/L (6-50); Albumin Level 4.8 g/dL (3.5-5.1); Alkaline Phosphatase 47 U/L (38-126); Anion Gap 11 mmol/L (4-12); Aspartate Amino Transferase 38 U/L (17-59); Bilirubin,Total 0.7 mg/dL (0.2-1.3); Blood Urea Nitrogen 19 mg/dL (9-20); Calcium 9.7 mg/dL (8.4-10.2); Carbon Dioxide 22 mmol/L (22-30); Chloride 104 mmol/L (98-107); Estimated Glomerular Filt Rate > 60; Glucose 93 mg/dL (65-110); Potassium 4.4 mmol/L (3.4-5.0); Sodium 137 mmol/L (137-145); Total Protein 8.5 g/dL (6.3-8.2)
--- OUTSIDE RECORDS SUMMARY | 2025-02-08 18:10 | XMS_ITS | Clinical Summary ---
Author Organization [facility] Address [address] [place] [address] Care Team Providers Care Recessing Machine Operator Name Role Phone Yan Heller MD Primary Care Provider [phone] Allergies Active Allergy Reactions Criticality Noted Date [...] 02/28/2018 Assessment & Plan (02/28/2018 12:04 PM PAYER SPECIALIST): He is reportedly up-to-date on colon cancer screening. He should be vaccinated for hepatitis A and B if this is not already been done. This can be done through his primary care physician or local health department. Cough 02/21/2018 Leukopenia 04/02/2017 Heartburn 03/28/2017 Obesity with body mass index 30 or greater 03/15 Hypertension 03/15/2016 Autoimmune hepatitis 11/20/2012 Assessment & Plan (02/28/2018 12:03 PM PAYER SPECIALIST): This was diagnosed in 2012 with transaminases [...] CMP which he will have done at [facility]. We will plan to recheck these in [...] on file Legal Sex Male 7:55 AM PAYER SPECIALIST Gender Identity Not on file Sexual Orientation Not on file Last Filed Vital Signs Vital Sign Reading Time Taken Comments Blood Pressure 108/69 03/31/2020 8:30 AM PAYER SPECIALIST Pulse 75 03/31/2020 8:30 AM PAYER SPECIALIST Temperature 36.4 C (97.6 F) 03/31/2020 8:30 AM PAYER SPECIALIST Respiratory Rate 18 11/08/2017 1:40 PM CDT Oxygen Saturation 98% 11/08/2017 1:40 PM CDT Inhaled Oxygen Concentration - - Weight 117.9 kg (260 lb) 03/31/2020 8:30 AM PAYER SPECIALIST Height 195.6 cm (6' 5) 03/31/2020 8:30 AM PAYER SPECIALIST Body Mass Index 30.83 03/31/2020 8:30 AM PAYER SPECIALIST Plan of Treatment Health Maintenance Due Date Last Done Comments Colon Cancer Screening-Colonoscopy 1962 Depression Screening 1962 Prostate Cancer Screening-PSA 1962 DTaP/Tdap/Td Vaccine (1 - Tdap) 1973 Regular Well Visit/Exam 18-64 1980 Pneumococcal vaccine <65 (1 of 2 - PCV) 1981 Zoster Vaccine (1 of 2) 1981 Covid-19 Vaccine (3 - Pfizer risk series) 07/18/2020 06/20/2020, 05/27/2020 Influenza Vaccine (#1) 2024 Hepatitis C Screening Completed 11/14/2012 Hepatitis B Screening Completed 04/05/2014 Procedures Procedure Name Priority Date/Time Associated Diagnosis [...] to request sample to be sent to [facility] for Hepatitis C Virus (HCV) RNA Detection and Quantitation by Real-Time Reverse Printing Technician-PCR (RT-PCR). Current interpretive data was last revised [...] to Health Maintenance [place] [address] [place] [address] [facility] MEDICARE ADVANTAGE [facility] AETNA SIGNATURE Care Teams Recessing Machine Operator Relationship Specialty Start Date End Date Yan Heller MD PCP - General 03/28/17
--- OUTSIDE RECORDS SUMMARY | 2025-02-08 18:10 | XMS_ITS | Encounter Summary ---
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
--- OUTSIDE RECORDS SUMMARY | 2025-02-08 18:10 | XMS_ITS | Clinical Summary ---
Author Organization [facility] [employer] Address [address] [place] [address] Care Team Providers Care Therapy Coordinator Name Role Phone Dudley Kapoor Primary Care Provider [phone] Source Comments [facility] [employer],non-owned Affiliates and Associated Physician Practices is amultiple site organization consisting of ambulatory clinics and hospital sitesin [place], [place], [place] and [place]. This disclosure is being madepursuant to the Care Everywhere program and may not contain all information available regarding this patient. Last updated 17.[facility] [employer] Allergies No known active allergies Medications * [...] on file Legal Sex Male 1:53 PM BOTTLING ATTENDANT Gender Identity Not on file Sexual Orientation Not on file Last Filed Vital Signs Vital Sign Reading Time Taken Comments Blood Pressure 90/60 04/15/2020 10:58 AM BOTTLING ATTENDANT Pulse 61 04/15/2020 10:58 AM BOTTLING ATTENDANT Temperature - - Respiratory Rate - - Oxygen Saturation - - Inhaled Oxygen Concentration - - Weight 118.8 kg (262 lb) 04/15/2020 10:58 AM BOTTLING ATTENDANT Height 195.6 cm (6' 5) 04/15/2020 10:58 AM BOTTLING ATTENDANT Body Mass Index 31.07 04/15/2020 10:58 AM BOTTLING ATTENDANT Plan of Treatment Health Maintenance Due Date [...] of 2) 2012 SCREENING FOR DIABETES 04/15/2020 DEPRESSION SCREENING 03/18/2024 COVID-19 VACCINE (1 - 2024-2 6 season) 2024 INFLUENZA VACCINE (#1) 2024 Respiratory Syncytial Virus [...] to complete this topic Insurance Care Teams Therapy Coordinator Relationship Specialty Start Date End Date Dudley Kapoor DO [address] [place] [id number] PCP - General Internal Medicine 04/14/20
== END 2025-02-08 15:32 | disposition home or self-care (01) ==
PROVIDERS: PCP Nurse Practitioner
DX: K75.4 Autoimmune hepatitis (principal); Z79.899 Other long term (current) drug therapy
CPT/HCPCS: 36415; 80053; 85025; 85055

== ENCOUNTER 2025-03-09 11:00 | Outpatient (RCR) | payer MEDICARE, SELFPAY ==
--- NOTE | 2025-02-09 11:17 | OPREHPOC ---
Outpatient Therapy Plan of Care This is a Multidisciplinary Plan of Care that may contain components documented by all disciplines (PT, OT, and ST.) PT Problem 1 PT Problem #1 Knowledge Deficit PT Goal 1 Goal / Goal Update [place] with HEP Target Visit 4 PT Goal 2 Goal / Goal Update Report no pain greater than 1/10 with shoulder flexion Target Visit 8 PT Problem 2 PT Problem #2 Impaired Range of Motion PT Goal 1 Goal / Goal Update 1. Achieve 170 degrees of left shoulder flexion ROM 2. Improve L shoulder external rotation to 85 degrees to improve active reach of shoulder capsule 3. Demonstrate 20 degree improvement of left cervical rotation Target Visit 8 PT Problem 3 PT Problem #3 Impaired Strength PT Goal 1 Goal / Goal Update 1. Improve L shoulder flexion strength to 4+/5 2. improve L shoulder external rotation strength to 4+/5 Target Visit 8
--- NOTE | 2025-02-09 11:17 | PTOPEVAL1 ---
Assessment and note entered by Esa Baires, PT Evaluation Information Assessment Status Evaluation Diagnosis Left Shoulder impingement ICD-10 Condition Codes (PT) Pain in left shoulder M25.512 Onset 2021 Subjective Information Reports that he had a fall in 2021 resulting in shoulder injury. He has been having trouble with functional reach overhead and behind his back. He has trouble sleeping on left side of any pressure on that arm. Difficulty with reaching overhead and feels he had weak security public safety officer. L side neck pain as well. He is retired. HE still likes to play a lot of basketball and would like to get back to it. Reported Pain Level Pain Score 1: Self Report Assessment PT Clinical Summary Patient presents with signs and symptoms consistent with shoulder impingement and possible rotator cuff tear. Further assessment will be needed to assess the extent of possible muscle structural involvement, but patient is able to obtain contraction of musculature in testing position. Will benefit f5rom skilled therapy with focus on capsular mobility progressing to capsular strength as tolerated. Plan of Care Interventions Gait Training,Manual Therapy,Neuro Re-education, Therapeutic Activities,Therapeutic Exercise PT Services Indicated Yes Treatment Frequency and 2x/week for 8 visits Duration These treatments will address the objective and functional deficits as defined above. The patient will be advanced safely and appropriately in order for the patient to progress towards his/her prior level of function. Additional exercises will be introduced and as well as a comprehensive home exercise program upon discharge, if needed, ?to ensure carryover of functional gains achieved in the clinic. This treatment plan has been reviewed and agreement upon by the patient.
--- NOTE | 2025-03-09 11:49 | PTOPDC ---
Assessment and note entered by Esa Baires, PT Evaluation Information Assessment Status Discharge Diagnosis Left Shoulder impingement ICD-10 Condition Codes (PT) Pain in left shoulder M25.512 Onset 2021 Subjective Information Reports that overall he has seen significant progress in shoulder ROM and strength at this time . Pain much less intense and frequent. Overall satisfied with progress. Reported Pain Level Pain Score 0: Self Report Assessment PT Clinical Summary Patient has progressed in shoulder ROM and strength as indicated by objective measures. Overall he has seen a parallel functional and pain improvement as well. Patient has met all goals and is suitable for discharge at this time. Plan of Care PT Services Indicated Yes
== END 2025-03-12 14:36 | disposition home or self-care (01) ==
LOC: ANHGOSHPT 11:00
PROVIDERS: PCP Nurse Practitioner
DX: S43.422D Sprain of left rotator cuff capsule, subsequent encounter (principal)
CPT/HCPCS: 97110; 97112; 97140; 97161; 97530